=== PATIENT | female | born 1935 | race Caucasian/White ===

== ENCOUNTER → 2016-06-29 | Outpatient (CLI) | payer BC ==
[~2016-06-29] MED LIST: ACET1TAB84 PO; BIOT1CAP3 PO; CALC500C70 PO; CHOL2000 PO; CYAN10005 PO; DOCU-94 PO; ERGO500037 PO; FURO-85 PO; GLUCTAB7 PO; HYDR25TA4 PO; IBAN150T PO; LISI10TA PO; MAGN400T6 PO; MOML PO; MULT-602 PO; OMEG10007 PO; PSYL55.43 PO; TRAMTAB5 PO; TYLOTC500 PO; Tumeric PO; ZNTT/150 PO; [UNRECOGNIZED DRUG - OTHER] TD
[2016-06-29 16:58] LABS: BLOOD UREA NITROGEN 20 mg/dl (7-18); BUN/CREATININE RATIO 36.5 (10-20); CALCIUM 9.5 mg/dl (8.5-10.1); CARBON DIOXIDE 28 mmol/L (21-32); CHLORIDE 97 mmol/L (98-107); CREATININE 0.54 mg/dl (0.60-1.20); GLUCOSE 102 mg/dl (70-99); POTASSIUM 3.9 mmol/L (3.5-5.1); SODIUM 134 mmol/L (136-145)
[2016-06-29 17:08] LABS: THYROID STIMULATING HORMONE 0.942 uIu/ml (0.300-4.500)
== END | disposition home or self-care (01) ==
LOC: C.LAB1850 15:22
PROVIDERS: ATTEND Internal Medicine
DX: M81.0 Age-related osteoporosis without current pathological fracture (principal); N25.81 Secondary hyperparathyroidism of renal origin; E04.2 Nontoxic multinodular goiter

== ENCOUNTER → 2016-07-07 | Outpatient (CLI) | payer BC | END | disposition home or self-care (01) | LOC: C.RDSM 13:20 | PROVIDERS: ATTEND Orthopaedic Surgery Sports Medicine | DX: M25.552 Pain in left hip (principal) ==

== ENCOUNTER → 2016-09-19 | Outpatient (CLI) | payer BC ==
--- NOTE | 2016-09-19 16:29 | DIAGNOSTIC IMAGING REPORT ---
LEFT KNEE 1 OR 2 VIEWS ROUTINE CLINICAL HISTORY: LT KNEE PAIN COMPARISON: 06/01/2016 DISCUSSION: No acute fractures are visualized. Osteoarthritic changes are again evident involving all 3 joint compartments. There is a small dorsal patellar spur. IMPRESSION: 3 compartment osteoarthritis. No acute fractures. Electronically signed by: Ganesh Skelton M.D. 09/19/2016 4:27 PM Dictated Date/Time: 09/19/2016 4:27 PM
== END | disposition home or self-care (01) ==
LOC: C.RAD1850 15:51
PROVIDERS: ATTEND Internal Medicine
DX: M25.562 Pain in left knee (principal)

== ENCOUNTER → 2016-09-19 | Outpatient (CLI) | payer BC ==
[2016-09-19 17:17] LABS: C-REACTIVE PROTEIN < 0.29 mg/dl (0-0.29); RHEUMATOID FACTOR < 10.0 U/mL (0-15)
[2016-09-25 02:35] LABS: ANTI-CENTROMERE AB <1.0 NEG AI (<1.0 NEG); ANTI-SS-A <1.0 NEG AI (<1.0 NEG); ANTI-SS-B <1.0 NEG AI (<1.0 NEG); DNA ds CRITHIDIA NEGATIVE (NEGATIVE); MICROSOMAL AB 2 IU/ML (<9); Sm Antibody <1.0 NEG AI (<1.0 NEG)
== END | disposition home or self-care (01) ==
LOC: C.RAD1850 15:30
PROVIDERS: ATTEND Internal Medicine
DX: M25.461 Effusion, right knee (principal); M25.562 Pain in left knee; W19.XXXA Unspecified fall, initial encounter

== ENCOUNTER → 2016-09-26 | Outpatient (CLI) | payer BC ==
--- NOTE | 2016-09-26 09:18 | DIAGNOSTIC IMAGING REPORT ---
MRI LEFT KNEE NO CONTRAST CLINICAL HISTORY: Left knee pain and swelling COMPARISON STUDY: Conventional radiographic study dated 09/19/2016 FINDINGS: The patient's knee was too large to fit into the knee coil. The long bone core was therefore utilized. Imaging was performed in the axial sagittal and coronal planes. The quadriceps and patellar tendons appear intact. The anterior and posterior cruciate ligaments appear intact. There are no areas of marrow edema to indicate occult fracture. Minor edema involving the medial tibial plateau is likely degenerative basis. The medial and lateral collateral ligaments appear intact. There is medial extrusion of the medial meniscus. There is marked chondrosis the medial joint compartment. There is chondromalacia patella. There is a small joint effusion. There are dorsal patellar spurs. IMPRESSION: 1. No evidence of occult fracture 2. No evidence of cruciate or collateral ligament disruption 3. Moderate osteoarthritic changes with chondromalacia patella, renal joint compartment chondrosis, medial joint compartment patellar spurring, and medial extrusion of the medial meniscus. Electronically signed by: Ganesh Skelton M.D. 09/26/2016 9:16 AM Dictated Date/Time: 09/26/2016 9:12 AM
== END | disposition home or self-care (01) ==
LOC: C.MRI 07:41
PROVIDERS: ATTEND Internal Medicine
DX: M25.461 Effusion, right knee (principal); M25.562 Pain in left knee; M79.662 Pain in left lower leg; M79.89 Other specified soft tissue disorders; R26.81 Unsteadiness on feet; R26.9 Unspecified abnormalities of gait and mobility; W19.XXXA Unspecified fall, initial encounter; M17.12 Unilateral primary osteoarthritis, left knee; M22.42 Chondromalacia patellae, left knee; M24.10 Other articular cartilage disorders, unspecified site; M25.762 Osteophyte, left knee; M23.302 Other meniscus derangements, unspecified lateral meniscus, unspecified knee

== ENCOUNTER → 2016-10-24 | Outpatient (CLI) | payer BC ==
--- NOTE | 2016-10-24 15:27 | DIAGNOSTIC IMAGING REPORT ---
SPLEEN ULTRASOUND CLINICAL HISTORY: Chronic lymphocytic leukemia. COMPARISON STUDY: CT of the abdomen and pelvis August 27, 2015. TECHNIQUE: Sonography of the spleen was performed. FINDINGS: The size of the spleen is normal, measuring 10.6 cm in maximal dimension. Several splenic calcifications are present. There is no perisplenic fluid. IMPRESSION: Normal size spleen. Electronically signed by: Stas Nichols M.D. 10/24/2016 3:26 PM Dictated Date/Time: 10/24/2016 3:25 PM
== END | disposition home or self-care (01) ==
LOC: C.ULTRBC 14:02
PROVIDERS: ATTEND Internal Medicine
DX: C91.10 Chronic lymphocytic leukemia of B-cell type not having achieved remission (principal)

== ENCOUNTER 2016-10-29 03:12 | Emergency (ER) | payer BC ==
[~2016-10-29] VITALS: Ht 154.9 cm; Wt 111.5 kg
[~2016-10-29 03:12] MED LIST changes: -ACET1TAB84 PO; -BIOT1CAP3 PO; -ERGO500037 PO; -MOML PO; -MULT-602 PO; -TRAMTAB5 PO
[2016-10-29 03:19] VITALS: TEMP 36.7; Ht 154.9 cm; Wt 111.5 kg
[2016-10-29 03:26] VITALS: O2SAT 100
[2016-10-29 03:42] LABS: HEMATOCRIT 39.4 % (37-47); MEAN CELL VOLUME 92.9 fL (80-100); MEAN CORPUSCULAR HEMOGLOBIN 31.4 pg (25-34); MEAN CORPUSCULAR HGB CONC 33.8 g/dl (32-36); MEAN PLATELET VOLUME 9.7 fL (7.4-10.4); PLATELET COUNT 217 K/uL (130-400); RED BLOOD COUNT 4.24 M/uL (4.2-5.4); WHITE BLOOD COUNT 20.32 K/uL (4.8-10.8)
[2016-10-29] MEDS ORDERED: BIOT1CAP3 PO (03:42)
[2016-10-29] MEDS ORDERED: MOML PO (03:47)
[2016-10-29] MEDS ORDERED: TRAMTAB5 PO (03:49)
[2016-10-29] MEDS ORDERED: ACET1TAB84 PO (03:51)
[2016-10-29] MEDS ORDERED: ERGO500037 PO (03:53)
[2016-10-29] MEDS ORDERED: OMEG10007 PO (03:56)
[2016-10-29] MEDS ORDERED: MULT-602 PO (03:57)
[2016-10-29 03:59] LABS: ALT/SGPT 22 U/L (12-78); AST/SGOT 10 U/L (15-37); BLOOD UREA NITROGEN 21 mg/dl (7-18); BUN/CREATININE RATIO 35.1 (10-20); CALCIUM 8.9 mg/dl (8.5-10.1); CARBON DIOXIDE 30 mmol/L (21-32); CHLORIDE 96 mmol/L (98-107); CREATININE 0.61 mg/dl (0.60-1.20); GLUCOSE 106 mg/dl (70-99); POTASSIUM 4.1 mmol/L (3.5-5.1); SODIUM 133 mmol/L (136-145)
--- NOTE | 2016-10-29 03:59 | EMERGENCY ROOM VISIT NOTE ---
History Report prepared by Arti: Aj Israel Under the Supervision of: Dr. Brisa Cook D.O. First contact with patient: 03:14 Chief Complaint: HYPERTENSION Stated Complaint: HYPERTENSIVE/SHAKEY History of Present Illness The patient is a 80 year old female who presents to the Emergency Room with complaints of persistent hypertension that started tonight. The patient noticed that before she went to bed she had some abdominal discomfort that describes as bloated, tight, and uncomfortable. The patient tried to lay down to feel better when she started feeling shaky. She took her blood pressure and she was running higher than usual. She usually runs in the 120s, but tonight it was around 140 and she saw 180 during one reading. The patient was able to eat and drink today and felt fine earlier in the evening. She started Zoloft this week for depression-like symptoms. The patient states that she doesn't feel anxious or cold. She denies chest pain, sweating, or shortness of breath. Source of History: patient Onset: tonight Position: other (global) Timing: other (persistent) Associated Symptoms: + abdominal pain, No SOB, No chest pain Note: Other associated symptoms: feeling shaky Denies: feeling anxious or cold, sweating Review of Systems See HPI for pertinent positives & negatives. A total of 10 systems reviewed and were otherwise negative. Past Medical & Surgical Medical Problems: (1) Atrial flutter (2) Cardiomegaly (3) CLL (chronic lymphocytic leukemia) (4) Disc displacement, lumbar (5) Esophageal reflux (6) Hx of breast cancer (7) Hypertension Surgical Problems: (1) S/P cholecystectomy Family History Arthritis Cancer Gallbladder disease Heart disease Hypertension Kidney stones Social History Smoking Status: Never Smoker Alcohol Use: other Marital Status: Housing Status: lives alone Occupation Status: retired Current/Historical Medications Scheduled Acetaminophen (Tylenol Arthritis Ext Rel), 1-2 TABS PO BID Biotin (Biotin), 5,000 MCG PO DAILY Calcium/Vitamin D (Os-Renaldo 500 Plus D), 1 TAB PO BID Cyanocobalamin (Vitamin B-12), 1,000 MCG PO DAILY Docusate Sodium (Colace), 1 CAP PO DAILY Ergocalciferol (Vitamin D 85385 Unit), 50,000 UNIT PO DAILY Fish Oil (Flora-3), 1 CAP PO DAILY Ozitwuepzah-Ulvppilafer-Zmg C- (Glucosamine Chondroitin), 2 TAB PO QAM Hydrochlorothiazide (Hctz), 25 MG PO QAM Lisinopril (Prinivil), 10 MG PO HS Magnesium Oxide (Mag-Ox), 200 MG PO BID Multiple Vitamins W/ Minerals (Womens 50+ Multi Vitamin), 1 TAB PO DAILY Psyllium (Metamucil Powder), 1 PACK PO DAILY/UD Ranitidine (Zantac), 150 MG PO HS [Podiatry Compound], 1 APPLN TD BID [Tumeric], 500 MG PO DAILY Scheduled PRN Furosemide (Lasix), 20 MG PO QAM PRN for swelling Tramadol/Acetaminophen (Ultracet), 1 TAB PO HS PRN for Pain Allergies Coded Allergies: Adhesives (Verified Allergy, Unknown, REDDENED, 10/29/16) CI Pigment Blue 63 (Unverified Allergy, Unknown, over eating, 10/29/16) Calcitriol (Unverified Allergy, Unknown, headache, 10/29/16) Duloxetine (Unverified Allergy, Unknown, over eating, 10/29/16) NO KNOWN DRUG ALLERGIES (Verified Allergy, Unknown, ., 12/09/14) Physical Exam Vital Signs Date Time Temp Pulse Resp B/P Pulse Ox O2 Delivery O2 Flow Rate FiO2 10/29/16 04:08 60 18 135/60 100 Room Air 10/29/16 03:34 68 10/29/16 03:26 100 Room Air 10/29/16 03:19 36.7 67 18 167/68 99 Room Air Physical Exam General: tremulous. HEENT: Head - normocephalic and atraumatic Pupils are equal, round, and reactive to light. Extraocular eye muscles are intact, and sclera are anicteric. Nose - moist nasal mucosa without discharge. Mouth - moist buccal mucosa. Oropharynx is nonerythematous and there is no tonsillar exudate or edema noted. Neck: Supple; no JVD, nuchal rigidity, cervical lymphadenopathy. Heart: Regular rate and rhythm. There is a normal S1 and S2 with no murmurs, clicks, or gallops appreciated. Lungs: Clear to auscultation bilaterally with no wheezes, rales, or rhonchi. Abdomen: Soft, completely nontender, nondistended, with good bowel sounds. There are no palpable pulsatile masses or hepatosplenomegaly. There is no guarding, rigidity, or rebound noted. Extremities: 1+ edema in legs, There are easily palpable peripheral pulses. Skin: warm and dry with good turgor and no rashes. Medical Decision & Procedures ER Provider Diagnostic Interpretation: Chest X-ray interpreted by me: No pulmonary consolidation, no obvious infiltrate, unchanged from chest x-ray from July 2015. Laboratory Results 10/29/16 03:10 Red Blood Count 4.24, Mean Corpuscular Volume 92.9, Mean Corpuscular Hemoglobin 31.4, Mean Corpuscular Hemoglobin Concent 33.8, Mean Platelet Volume 9.7, Neutrophils (%) (Auto) 28.3, Lymphocytes (%) (Auto) 65.8, Monocytes (%) (Auto) 3.8, Eosinophils (%) (Auto) 1.6, Basophils (%) (Auto) 0.2, Neutrophils # (Auto) 5.74, Lymphocytes # (Auto) 13.38, Monocytes # (Auto) 0.78, Eosinophils # (Auto) 0.32, Basophils # (Auto) 0.04 10/29/16 03:10 Test 10/29/16 03:10 White Blood Count 20.32 K/uL (4.8-10.8) Red Blood Count 4.24 M/uL (4.2-5.4) Hemoglobin 13.3 g/dL (12.0-16.0) Hematocrit 39.4 % (37-47) Mean Corpuscular Volume 92.9 fL (80-100) Mean Corpuscular Hemoglobin 31.4 pg (25-34) Mean Corpuscular Hemoglobin Concent 33.8 g/dl (32-36) Platelet Count 217 K/uL (130-400) Mean Platelet Volume 9.7 fL (7.4-10.4) Neutrophils (%) (Auto) 28.3 % Lymphocytes (%) (Auto) 65.8 % Monocytes (%) (Auto) 3.8 % Eosinophils (%) (Auto) 1.6 % Basophils (%) (Auto) 0.2 % Neutrophils # (Auto) 5.74 K/uL (1.4-6.5) Lymphocytes # (Auto) 13.38 K/uL (1.2-3.4) Monocytes # (Auto) 0.78 K/uL (0.11-0.59) Eosinophils # (Auto) 0.32 K/uL (0-0.5) Basophils # (Auto) 0.04 K/uL (0-0.2) RDW Standard Deviation 43.8 fL (36.4-46.3) RDW Coefficient of Variation 12.9 % (11.5-14.5) Immature Granulocyte % (Auto) 0.3 % Immature Granulocyte # (Auto) 0.06 K/uL (0.00-0.02) Smudge Cells PRESENT Anion Gap 7.0 mmol/L (3-11) Est Creatinine Clear Calc Drug Dose 86.5 ml/min Estimated GFR () 99.9 Estimated GFR (Non- 86.2 BUN/Creatinine Ratio 35.1 (10-20) Calcium Level 8.9 mg/dl (8.5-10.1) Total Bilirubin 0.3 mg/dl (0.2-1) Aspartate Amino Transf (AST/SGOT) 10 U/L (15-37) Alanine Aminotransferase (ALT/SGPT) 22 U/L (12-78) Alkaline Phosphatase 88 U/L (45-117) Troponin I < 0.015 ng/ml (0-0.045) Pro-B-Type Natriuretic Peptide 51 pg/ml (0-1800) Total Protein 7.5 gm/dl (6.4-8.2) Albumin 4.1 gm/dl (3.4-5.0) Globulin 3.4 gm/dl (2.5-4.0) Albumin/Globulin Ratio 1.2 (0.9-2) Thyroid Stimulating Hormone (TSH) 2.940 uIu/ml (0.300-4.500) Laboratory results per my review. ECG Indication: other Rate (beats per minute): 64 Rhythm: normal sinus Findings: no acute ischemic change, no ectopy ED Course 0319: Past medical records reviewed. The patient was evaluated in room B12. A complete history and physical exam was performed. Laboratory studies were drawn as above. A twelve-lead EKG was obtained as described above. A chest x- ray was performed and was unremarkable. 0418: At this time, I reevaluated the patient and she was feeling much better. She states that her shaking has resolved. Her family is at bedside and her blood pressure is 135/60. 0422: Upon reevaluation, the patient is resting comfortably. I discussed findings and results with her. The patient verbalized agreement of the treatment plan. She was discharged home. Medical Decision The patient is a 80 year old female who presents to the ED with hypertension. Differential diagnosis includes anxiety, rigors, or hypertensive urgency. Labs interpreted by me: white count 20.32 history of CLL and so this is baseline for the patient, stable H&H, Sodium 133, BUN 21, creatinine 0.6, glucose 106, LFTs and TSH normal, troponin negative. I attest that I have personally reviewed the patient's current medication list. Patient was found to have an elevated blood pressure and was referred to their primary doctor for recheck and further treatment. The patient's tremors have resolved here in the emergency department. Her blood pressure has come down nicely on its own. She is feeling much better. I have encouraged the patient keep a log of her blood pressures over the next 2 or 3 days and follow-up with her PCP. If the symptoms worsen, she should return to the ER. Impression Primary Impression: Occasional tremors Additional Impression: Hypertension Scribe Attestation The scribe's documentation has been prepared under my direction and personally reviewed by me in its entirety. I confirm that the note above accurately reflects all work, treatment, procedures, and medical decision making performed by me. Departure Information Dispostion Home / Self-Care Referrals RV. Kemp MD (PCP) Forms HOME CARE DOCUMENTATION FORM, IMPORTANT VISIT INFORMATION, WORK / SCHOOL INSTRUCTIONS Patient Instructions ED Hypertension Conf Out Of Control, [facility] [employer] Additional Instructions Rest. Limit stress and anxiety. Watch your BP over next 3-5 days and follow up with PCP Return to the ER if symptoms worsen. Problem Qualifiers
[2016-10-29 04:08] VITALS: BP 135/60; PULSE 60; O2SAT 100
[2016-10-29 04:09] LABS: ALB/GLOB RATIO 1.2 (0.9-2); ALKALINE PHOSPHATASE 88 U/L (45-117)
[2016-10-29 04:13] LABS: BASO % 0.2 %; BASO ABS # 0.04 K/uL (0-0.2); COMPLETE YES; EOS % 1.6 %; IG% 0.3 %; LYMPH % 65.8 %; LYMPH ABS # 13.38 K/uL (1.2-3.4); MONO % 3.8 %; NEUT % 28.3 %; SMUDGE CELLS PRESENT
--- NOTE | 2016-10-29 10:59 | DIAGNOSTIC IMAGING REPORT ---
CHEST ONE VIEW PORTABLE CLINICAL HISTORY: Hypertension. Weakness. COMPARISON STUDY: Chest radiograph July 10, 2015. FINDINGS: Lung volumes are normal. There is no pneumothorax or pleural effusion. There is no evidence of pulmonary edema. Cardiomediastinal silhouette is stable. IMPRESSION: No acute cardiopulmonary findings. Electronically signed by: Stas Nichols M.D. 10/29/2016 10:57 AM Dictated Date/Time: 10/29/2016 10:54 AM
== END 2016-10-29 04:31 | disposition home or self-care (01) ==
LOC: EDBD 03:12 → C.EDB 03:13
DX: I10 Essential (primary) hypertension (principal); R25.1 Tremor, unspecified; I48.92 Unspecified atrial flutter; Z85.6 Personal history of leukemia; K21.9 Gastro-esophageal reflux disease without esophagitis; Z85.3 Personal history of malignant neoplasm of breast; Z90.49 Acquired absence of other specified parts of digestive tract; Z80.9 Family history of malignant neoplasm, unspecified; Z82.49 Family history of ischemic heart disease and other diseases of the circulatory system; Z84.1 Family history of disorders of kidney and ureter; Z82.61 Family history of arthritis; Z79.899 Other long term (current) drug therapy

== ENCOUNTER → 2016-11-03 | Outpatient (CLI) | payer BC ==
[~2016-11-03] MED LIST changes: +ACET1TAB84 PO; +BIOT1CAP3 PO; -CHOL2000 PO; +ERGO500037 PO; -IBAN150T PO; +MULT-602 PO; +TRAMTAB5 PO; -TYLOTC500 PO
== END | disposition home or self-care (01) ==
LOC: C.LABSPEC 16:46
PROVIDERS: ATTEND Internal Medicine
DX: R10.13 Epigastric pain (principal)

== ENCOUNTER → 2016-11-30 | Outpatient (CLI) | payer BC ==
[2016-11-30 13:46] LABS: THYROID STIMULATING HORMONE 0.668 uIu/ml (0.300-4.500)
[2016-12-02 12:38] LABS: MICROSOMAL AB 2 IU/ML (<9)
== END | disposition home or self-care (01) ==
LOC: C.LAB1850 11:55
PROVIDERS: ATTEND Internal Medicine
DX: R53.83 Other fatigue (principal)

== ENCOUNTER → 2017-01-22 | Outpatient (CLI) | payer BC ==
--- NOTE | 2017-01-31 12:12 | CODING QUERY MEDICAL NECESSITY ---
SUPPORTING DIAGNOSIS NEEDED A supporting diagnosis is required for the test/procedure performed on this patient in order for us to be reimbursed by the patient's insurance. Please provide a supporting diagnosis for the following test/procedure listed below next to the test name along with your signature. *If there is no additional diagnosis for this patient that would support the following test/procedure please document that below next to the test/procedure. Test(s)/Procedure(s) that require a supporting diagnosis: * VITAMIN B12 DIAGNOSIS: Provider Signature: Date: Thank you Cristine Collins [employer] Once completed, please kindly fax back to [phone] For questions please call [phone]
== END | disposition home or self-care (01) ==
LOC: C.LAB1850 15:48
PROVIDERS: ATTEND Physician Assistant
DX: G62.9 Polyneuropathy, unspecified (principal); R26.9 Unspecified abnormalities of gait and mobility

== ENCOUNTER → 2017-01-26 | Outpatient (CLI) | payer BC ==
--- NOTE | 2017-01-26 12:35 | DIAGNOSTIC IMAGING REPORT ---
MRI OF THE CERVICAL SPINE WITHOUT CONTRAST CLINICAL HISTORY: Neck pain with radiculopathy. COMPARISON: Cervical spine MRI October 15, 2014 and cervical spine radiographs August 24, 2015. TECHNIQUE: Utilizing a 1.5 Evon magnet and dedicated coil, multiplanar, multiecho imaging of the cervical spine was performed without IV contrast. FINDINGS: Alignment of the cervical spine is anatomic. Vertebral body heights are maintained. There is no intracanalicular mass or fluid collection. Cervical cord signal and caliber are normal. Paravertebral soft tissues are unremarkable. A few small thyroid nodules are incidentally noted. C2-C3: The central canal and neural foramen are patent. C3-C4: There is mild disc space narrowing. Central canal is patent. There is mild narrowing of the right neural foramen. C4-C5: Disc bulge is noted which results in mild narrowing of the central canal. This is similar to MRI of October 15, 2016. There is moderate right neural foraminal narrowing. C5-C6: Disc space narrowing with disc bulge is noted. There is mild narrowing of the central canal which is similar to prior exam. There is mild bilateral neural foraminal stenosis. C6-C7: Mild disc bulge is noted. Minimal narrowing of the central canal is noted. There is mild narrowing of the left and moderate narrowing of the right neural foramen. C7-T1: Central canal and neural foramen are patent. IMPRESSION: 1. Mild multilevel degenerative disc disease with disc bulges at the C4-5, C5-C6 and C6-C7 levels which result in mild narrowing of the central canal which is similar to prior MRI. 2. Mild to moderate multilevel neural foraminal stenosis, as described above. 3. Normal cervical cord signal and caliber. Electronically signed by: Stas Nichols M.D. 01/26/2017 12:34 PM Dictated Date/Time: 01/26/2017 12:15 PM
--- NOTE | 2017-01-26 13:08 | DIAGNOSTIC IMAGING REPORT ---
LUMBAR SPINE W/O CONTRAST CLINICAL HISTORY: 81 years-old Female presenting with back pain, numbness, stenosis, neuropathy, difficulty walking. TECHNIQUE: Multisequence, multiplanar MR imaging of the lumbar spine was performed without the use of intravenous contrast. IV contrast: None. COMPARISON: Correlation made to CT of the abdomen and pelvis from 2016. FINDINGS: Localizer images: Spleen top normal in size. Normal lumbar lordosis. Vertebral bodies maintain normal height and alignment. Bone marrow signal intensity changes along the endplates of T12-L1 and L2-L3 consistent with mild bony edema. No associated fluid signal intensity within the intervertebral disc spaces at these levels. Overall diffuse disc desiccation is noted with intervertebral disc height loss most severe in the upper lumbar spine. Multilevel degenerative changes noted at every level further detailed below: L1-2: Disc bulge results in mild effacement of the ventral thecal sac. No significant neuroforaminal narrowing. L2-3: Disc bulge, facet arthropathy, and ligamentum flavum thickening result in circumferential effacement of the thecal sac, although CSF signal intensity surrounding the nerve roots is maintained. Mild right and moderate left neural foraminal narrowing. L3-4: Disc bulge, facet arthropathy, and mentum flavum thickening again result in circumferential effacement of the thecal sac with maintenance of CSF signal surrounding the cauda equina. Mild right and moderate left neural foraminal narrowing. L4-5: Disc bulge with a suspected central annular tear noted in addition to facet arthropathy and ligamentum flavum thickening. A similar degree of circumferential thecal sac effacement noted. Mild bilateral neural foraminal narrowing results. L5-S1: Disc bulge and facet arthropathy results in moderate bilateral neural foraminal narrowing. No significant spinal canal stenosis. Spinal cord ends in good position at L1. Cauda equina normal in morphology. No paraspinal edema or fluid collection. No epidural fluid collection. IMPRESSION: Multilevel degenerative changes as detailed above. Neural foraminal narrowing most severe at L2-3 and L3-4. No evidence of spinal cord/cauda equina impingement. Electronically signed by: Km Almeida M.D. 01/26/2017 1:07 PM Dictated Date/Time: 01/26/2017 1:01 PM
== END | disposition home or self-care (01) ==
LOC: C.MRI 10:32
PROVIDERS: ATTEND Physician Assistant
DX: M54.12 Radiculopathy, cervical region (principal); M48.06 Spinal stenosis, lumbar region

== ENCOUNTER → 2017-02-02 | Outpatient (CLI) | payer BC ==
[~2017-02-02] VITALS: Ht 154.9 cm; Wt 104.4 kg
[2017-02-02 13:28] VITALS: BP 127/76; PULSE 76; Ht 154.9 cm; Wt 104.4 kg
== END | disposition home or self-care (01) ==
LOC: C.NEUR 13:09
PROVIDERS: ATTEND Internal Medicine Pulmonary Disease
DX: G47.33 Obstructive sleep apnea (adult) (pediatric) (principal)

== ENCOUNTER → 2017-08-06 | Outpatient (CLI) | payer BC ==
[~2017-08-06] MED LIST changes: +RANI150T85 PO; -ZNTT/150 PO
== END | disposition home or self-care (01) ==
LOC: C.MAMM 12:54
PROVIDERS: ATTEND Internal Medicine
DX: M81.0 Age-related osteoporosis without current pathological fracture (principal)

== ENCOUNTER → 2017-08-07 | Outpatient (CLI) | payer BC ==
--- NOTE | 2017-08-09 08:01 | MAMMOGRAPHY REPORT ---
BILATERAL DIGITAL SCREENING MAMMOGRAM TOMOSYNTHESIS WITH CAD: 08/07/2017 CLINICAL HISTORY: Routine screening. Patient has no complaints. TECHNIQUE: Breast tomosynthesis in addition to standard 2D mammography was performed. Current study was also evaluated with a Computer Aided Detection (CAD) system. COMPARISON: Comparison is made to exams dated: 05/15/2016 mammogram, 05/11/2015 mammogram, 05/08/2014 mammogram, 05/07/2013 mammogram - [facility], 02/19/2012 mammogram, and 02/16/2011 kezia mogram. BREAST COMPOSITION: There are scattered areas of fibroglandular density in both breasts. FINDINGS: There is stable asymmetry in the middle one third of the right breast, slightly lateral to the posterior nipple line on the CC view, which appears very similar to the prior 2015, 2014, 2013, 012 and 2010 mammograms, therefore likely benign. There are scattered benign-appearing microcalcific ations in the breasts. No suspicious mass, architectural distortion or cluster of microcalcification s is seen. IMPRESSION: ACR BI-RADS CATEGORY 1: NEGATIVE There is no mammographic evidence of malignancy. A 1 year screening mammogram is recommended. The pa tient will receive written notification of the results. Approximately 10% of breast cancers are not detected with mammography. A negative mammographic report should not delay biopsy if a clinically suggestive mass is present. Marylou Green M.D. ay/:08/07/2017 15:20:42 Chief Administrative Officer: Emilee CRUMP(Melisa)(Aislinn)(MIGUEL ANGEL), [facility] letter sent: Normal 1/2 BI-RADS Code: ACR BI-RADS Category 1: Negative
== END | disposition home or self-care (01) ==
LOC: C.MAMM 11:35
PROVIDERS: ATTEND Obstetrics & Gynecology
DX: Z12.31 Encounter for screening mammogram for malignant neoplasm of breast (principal)

== ENCOUNTER → 2017-09-27 | Outpatient (CLI) | payer BC | END | disposition home or self-care (01) | LOC: C.LABBC 12:04 | PROVIDERS: ATTEND Obstetrics & Gynecology | DX: R32 Unspecified urinary incontinence (principal) ==

== ENCOUNTER → 2017-12-28 | Outpatient (CLI) | payer BC ==
[~2017-12-28] MED LIST changes: -CALC500C70 PO; +CHOL20007 PO; -ERGO500037 PO; -FURO-85 PO; +GABA1SOL3 PO; -LISI10TA PO; -MAGN400T6 PO; +MALTREXONE PO; +PROB1TAB16 PO; -PSYL55.43 PO; -TRAMTAB5 PO; -[UNRECOGNIZED DRUG - OTHER] TD
== END | disposition home or self-care (01) ==
LOC: C.PATHSPEC 14:37
PROVIDERS: ATTEND Urology
DX: R31.29 Other microscopic hematuria (principal); N20.0 Calculus of kidney

== ENCOUNTER → 2018-01-07 | Outpatient (CLI) | payer BC ==
[2018-01-07 16:12] LABS: ALBUMIN 3.7 gm/dl (3.4-5.0); ALKALINE PHOSPHATASE 74 U/L (45-117); ALT/SGPT 22 U/L (12-78); AST/SGOT 12 U/L (15-37); BLOOD UREA NITROGEN 16 mg/dl (7-18); CARBON DIOXIDE 29 mmol/L (21-32); CREATININE 0.51 mg/dl (0.60-1.20); GLUCOSE 101 mg/dl (70-99); POTASSIUM 3.9 mmol/L (3.5-5.1); SODIUM 133 mmol/L (136-145); TOTAL PROTEIN 6.6 gm/dl (6.4-8.2)
== END | disposition home or self-care (01) ==
LOC: C.LAB1850 14:17
PROVIDERS: ATTEND Urology
DX: R31.29 Other microscopic hematuria (principal); N20.0 Calculus of kidney

== ENCOUNTER → 2018-01-10 | Day surgery (SDC) | payer BC ==
[2017-12-21 13:43] VITALS: Ht 157.5 cm; Wt 103.2 kg
[~2018-01-10] VITALS: Ht 157.5 cm; Wt 103.2 kg
[~2018-01-10] MED LIST changes: +LIDOCAINE HCL 2% 2 ML VIAL (20MG/ML) ONE; +MIDAZOLAM HCL 1 MG/ML 2ML VIAL ONE; +PROPOFOL IV EMULSION 10 MG/ML 20 ML VIAL ONE
--- NOTE | 2018-01-10 15:11 | Endo History and Physical ---
History & Physical Date of Service: Jan 10, 2018. Chief Complaint: ABDOMINAL PAIN, EPIGASTRIC PAIN, BLOATING Referring Physician: , History of Present Illness For colonoscopy Past Medical History Osteoporosis, Arthritis, Anxiety, Reflux, Sleep Apnea, Hypertension, Depression Past Surgical History Hx Cardiac Surgery: No Hx Internal Defibrillator: No Hx Pacemaker: No Hx Abdominal Surgery: Yes (cholecystectomy, ovarian cystectomy, D&C) Hx of Implantable Prosthesis: No Hx Post-Op Nausea and Vomiting: No Hx Cancer Surgery: No Hx Thoracic Surgery: No Hx Orthopedic: No Hx Urinary Tract Surgery: No Family History None Social History Smoking Status: Never Smoker Hx Substance Use: No Hx Alcohol Use: No Allergies Coded Allergies: Adhesives (Verified Allergy, Mild, RASH, 01/10/18) CI Pigment Blue 63 (Verified Allergy, Unknown, over eating, 01/10/18) Calcitriol (Verified Allergy, Unknown, headache, 01/10/18) Duloxetine (Verified Allergy, Unknown, over eating, 01/10/18) Current Medications Reported Home Medications Medications Dose Route/Sig Max Daily Dose Days Date Category Probiotic (Probiotic Product) 1 Tab Tab 1 Tab PO DAILY 12/21/17 Reported Vitamin D3 (Cholecalciferol) 2,000 Unit Tab 1 Tab PO DAILY 12/21/17 Reported Womens 50+ Multi Vitamin (Multiple Vitamins W/ Minerals) 1 Tab Tab 1 Tab PO DAILY 10/29/16 Reported Russell-3 (Fish Oil) 1 Ea Cap 2 Cap PO DAILY 10/29/16 Reported Tylenol Arthritis Ext Rel (Acetaminophen) 650 Mg Cplt 1-2 Tabs PO BID 10/29/16 Reported Biotin 5,000 Mcg Cap 5,000 Mcg PO DAILY 10/29/16 Reported Colace (Docusate Sodium) 100 Mg Cap 1 Cap PO DAILY 01/21/16 Reported [Tumeric] 500 Mg PO DAILY 09/01/15 Reported Vitamin B-12 (Cyanocobalamin) 1,000 Mcg Tab 1,000 Mcg PO Q2D 07/10/15 Reported Glucosamine Chondroitin (Jubxwogsfaz-Pcrzehtthiz-Wkx C-) 1 Tab Tab 2 Tab PO QAM 12/07/14 Reported Zantac (Ranitidine HCl) 150 Mg Tab 150 Mg PO HS 12/07/14 Reported Hctz (Hydrochlorothiazide) 25 Mg Tab 25 Mg PO QAM 05/14/14 Reported Vital Signs Weight (Kilograms): 103.18 Height (Feet): 5 Height (Inches): 2 Date Time Temp Pulse Resp B/P (MAP) Pulse Ox O2 Delivery O2 Flow Rate FiO2 01/10/18 14:24 37 63 20 169/71 (103) 97 Room Air Physical Exam General Appearance: + obese Respiratory/Chest: Respiratory effort: no dyspnea Cardiovascular: Heart Auscultation: RRR Assessment and Plan abd pain for colonoscopy
--- NOTE | 2018-01-10 15:54 | Discharge Instructions ---
Endoscopy Patient Instructions Date / Procedure(s) Performed Jan 10, 2018. Colonoscopy Allergy Information Coded Allergies: Adhesives (Verified Allergy, Mild, RASH, 01/10/18) CI Pigment Blue 63 (Verified Allergy, Unknown, over eating, 01/10/18) Calcitriol (Verified Allergy, Unknown, headache, 01/10/18) Duloxetine (Verified Allergy, Unknown, over eating, 01/10/18) Discharge Date / Findings Jan 10, 2018. redundant colon Medication Instructions Stopped Medication(s): HELD THE HCTZ FOR THE PROCEDURE Restart Stopped Medication(s): resume meds Reported Home Medications Medications Dose Route/Sig Max Daily Dose Days Date Category Probiotic (Probiotic Product) 1 Tab Tab 1 Tab PO DAILY 12/21/17 Reported Vitamin D3 (Cholecalciferol) 2,000 Unit Tab 1 Tab PO DAILY 12/21/17 Reported Womens 50+ Multi Vitamin (Multiple Vitamins W/ Minerals) 1 Tab Tab 1 Tab PO DAILY 10/29/16 Reported [place]ney-3 (Fish Oil) 1 Ea Cap 2 Cap PO DAILY 10/29/16 Reported Tylenol Arthritis Ext Rel (Acetaminophen) 650 Mg Cplt 1-2 Tabs PO BID 10/29/16 Reported Biotin 5,000 Mcg Cap 5,000 Mcg PO DAILY 10/29/16 Reported Colace (Docusate Sodium) 100 Mg Cap 1 Cap PO DAILY 01/21/16 Reported [Tumeric] 500 Mg PO DAILY 09/01/15 Reported Vitamin B-12 (Cyanocobalamin) 1,000 Mcg Tab 1,000 Mcg PO Q2D 07/10/15 Reported Glucosamine Chondroitin (Vveoljpfhqr-Zmaeyejvvhs-Lzs C-) 1 Tab Tab 2 Tab PO QAM 12/07/14 Reported Zantac (Ranitidine HCl) 150 Mg Tab 150 Mg PO HS 12/07/14 Reported Hctz (Hydrochlorothiazide) 25 Mg Tab 25 Mg PO QAM 05/14/14 Reported Provider Instructions Activity Restrictions - No exercising or heavy lifting for 24 hours. - Do not drink alcohol the day of the procedure. - Do not drive a car or operate machinery until the day after the procedure. - Do not make any important decisions or sign important papers in 24 hours after the procedure. Following Day: - Return to full activity which may include returning to work/school. Diet Start your diet with liquids and light foods (jello, soup, juice, toast). Then eat your usual diet if not nauseated. Treatment For Common After Affects For mild abdominal pain, bloating, or excessive gas: - Rest - Eat lightly - Lie on right side Follow-Up Information Follow-up with , as scheduled Anesthesia Information What You Should Know You have had a procedure that required some medicine to reduce anxiety and discomfort. This treatment is called moderate sedation. After receiving the treatment, you may be sleepy, but you will be able to breathe on your own. The effects of the treatment may last for several hours. Follow these instructions along with Activity/Diet recommendations noted above: * Do NOT do anything where dizziness or clumsiness would be dangerous. * Rest quietly at home today, then you can be up and about tomorrow. * Have a responsible person stay with you the rest of today. * You may have had an I.V. today. If so, you may take the dressing off later today. Recommendations Call your doctor if: * Trouble breathing * Continuous vomiting for more than 24 hours * Temperature above 101 degrees * Severe abdominal pain or bloating * Pain not relieved by pain medicine ordered * There is increased drainage or redness from any incision * A large amount of rectal bleeding greater than 2-3 tablespoons. (If you had a polyp/s removed or have hemorrhoids, a small amount of blood - from the rectum is to be expected.) * You have any unanswered questions or concerns. IN THE EVENT OF A SERIOUS EMERGENCY, GO TO THE NEAREST EMERGENCY ROOM Your discharge instructions were prepared by provider Silver Hussein. Patient Instructions Signature Page Trina Fabian Patient (or Guardian) Signature/Date: I have read and understand the instructions given to me by my caregivers. Caregiver/RN/Doctor Signature/Date: The above-named patient and/or guardian has received patient instructions on this date. + Original Patient Signature Page (only) stays with chart. Please make copy for patient.
--- NOTE | 2018-01-10 15:59 | GI REPORT ---
Patient Name: Trina Fabian Procedure Date: 01/10/2018 3:05 PM Date of : 1935 Admit Type: Outpatient Age: 82 Gender: Female Attending MD: Silver Hussein MD Procedure: Colonoscopy Providers: Silver Hussein MD Referring MD: Henrietta Kemp Indications: Generalized abdominal pain, Constipation Medicines: Midazolam 2 mg IV, Propofol total dose 250 mg IV, Lidocaine 40 mg IV Complications: No immediate complications. Estimated Blood Loss: Estimated blood loss: none. Procedure: Pre-Anesthesia Assessment: - Prior to the procedure, a History and Physical was performed, and patient medications, allergies and sensitivities were reviewed. The patient's tolerance of previous anesthesia was reviewed. - The risks and benefits of the procedure and the sedation options and risks were discussed with the patient. All questions were answered and informed consent was obtained. After I obtained informed consent, the scope was passed under direct vision. Throughout the procedure, the patient's blood pressure, pulse, and oxygen saturations were monitored continuously. The scope was introduced through the anus and advanced to the cecum, identified by appendiceal orifice and ileocecal valve. The colonoscopy was somewhat difficult due to significant looping. Successful completion of the procedure was aided by applying abdominal pressure. The patient tolerated the procedure well. The quality of the bowel preparation was good. Findings: The entire examined colon appeared normal. Impression: - The entire examined colon is normal. - No specimens collected. Recommendation: - Discharge patient to home (ambulatory). - Miralax 1 capful (17 grams) in 8 ounces of water PO daily indefinitely. - Return to primary care physician PRN. Silver Hussein M.D. Silver Hussein MD 01/10/2018 3:58:57 PM This report has been signed electronically. Note Initiated On: 01/10/2018 3:05 PM Number of Addenda: 0 I attest to the content of the Intraoperative Record and orders documented therein, exceptions below {[id number]}
[2018-01-10 16:31] VITALS: BP 159/68; PULSE 64; O2SAT 100
--- NOTE | 2018-01-10 16:55 | Anesthesiology Progress Note ---
Anesthesia Post Op Note Date & Time Jan 10, 2018 at 16:55 Vital Signs Pain Intensity: 5 Vital Signs Past 12 Hours Date Time Temp Pulse Resp B/P (MAP) Pulse Ox O2 Delivery O2 Flow Rate FiO2 01/10/18 16:31 64 20 159/68 (98) 100 Room Air 01/10/18 16:16 61 20 111/42 (65) 97 Room Air 01/10/18 15:58 64 20 103/50 (67) 99 Room Air 01/10/18 14:24 37 63 20 169/71 (103) 97 Room Air Notes Mental Status: alert / awake / arousable, participated in evaluation Pt Amnestic to Procedure: Yes Nausea / Vomiting: adequately controlled Pain: adequately controlled Airway Patency, RR, SpO2: stable & adequate BP & HR: stable & adequate Hydration State: stable & adequate Anesthetic Complications: no major complications apparent
== END | disposition home or self-care (01) ==
LOC: C.GI 13:35
PROVIDERS: ATTEND Internal Medicine Gastroenterology
DX: R10.84 Generalized abdominal pain (principal); K59.00 Constipation, unspecified; G47.33 Obstructive sleep apnea (adult) (pediatric); K21.9 Gastro-esophageal reflux disease without esophagitis; M79.7 Fibromyalgia; M81.0 Age-related osteoporosis without current pathological fracture; M19.90 Unspecified osteoarthritis, unspecified site; F32.9 Major depressive disorder, single episode, unspecified; Z90.49 Acquired absence of other specified parts of digestive tract

== ENCOUNTER → 2018-01-17 | Outpatient (CLI) | payer BC ==
[~2018-01-17] MED LIST changes: -GABA1SOL3 PO; -LIDOCAINE HCL 2% 2 ML VIAL (20MG/ML) ONE; -MALTREXONE PO; -MIDAZOLAM HCL 1 MG/ML 2ML VIAL ONE; +OPTIRAY 320 IV PRN; -PROPOFOL IV EMULSION 10 MG/ML 20 ML VIAL ONE
--- NOTE | 2018-01-17 11:15 | DIAGNOSTIC IMAGING REPORT ---
ABD/PELVIS COMBO CLINICAL HISTORY: 82 years-old Female presenting with R31.29 Hematuria, microscopic. TECHNIQUE: Multidetector CT of the abdomen and pelvis was performed before and after the administration of intravenous contrast. IV contrast: 117 mL of Optiray 320. A dose lowering technique was used consistent with the principles of ALARA (as low as reasonably achievable). COMPARISON: 08/27/2015. CT DOSE (mGy.cm): The estimated cumulative dose is 2612.97 mGy.cm. 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 Lung bases: Minimal basilar opacities, likely atelectasis. Multichamber enlargement of the heart. Coronary artery calcification. Calcified mediastinal lymph nodes noted likely indicating prior granulomatous infection. No pericardial or pleural effusion. Liver: Normal morphology. No liver lesion. Patent hepatic vasculature. Biliary: No intrahepatic or extrahepatic biliary ductal dilatation. Gallbladder surgically absent. Pancreas: Normal. Spleen: Punctate calcifications likely indicate prior granulomatous infection. Adrenal glands: Nonspecific nodular thickening of the left adrenal gland. Right adrenal gland normal. Kidneys and ureters: 2.6 cm lesion at the upper pole of the right kidney demonstrates a precontrast density of 34 Hounsfield units but no enhancement on postcontrast imaging with postcontrast density of 37 Hounsfield units. This is compatible with a hemorrhagic or proteinaceous cyst. Nonobstructing right renal calculi, the larger measuring 3 mm and an adjacent punctate calculus. No hydronephrosis. Few simple cysts suggested bilaterally in the kidneys. No filling defect in the urinary collecting systems. Normal caliber ureters. Bladder: Anterior wall thickening. However, the bladder is incompletely distended. Pelvic organs: Uterus and ovaries normal. Bowel: Mild stool burden throughout the colon. No bowel obstruction. Mild circumferential wall thickening of the distal esophagus suggested. Peritoneal cavity: No free fluid or intraperitoneal gas. Lymph nodes: No enlarged lymph nodes in the abdomen or pelvis. Vasculature: Atherosclerosis of the normal caliber abdominal aorta. IVC patent. Abdominal wall: Ventral hernia in the periumbilical region, which contains fat and unobstructed small bowel. No significant fat infiltration. The hernia has a wide neck. Musculoskeletal: Degenerative changes of the spine. Degenerative changes of the pubic symphysis. Fluid suggested in the pubic symphysis joint space. Degenerative changes of the sacroiliac joints. IMPRESSION: 1. Wall thickening of the anterior wall of the bladder may be due to underdistention though underlying bladder neoplasm is difficult to exclude. Urologic consultation recommended. 2. Nonobstructing right renal calculi. No hydronephrosis. 3. 2.6 cm hemorrhagic or proteinaceous right renal cyst. 4. No solid renal neoplasm. 5. Ventral hernia. 6. Mild circumferential wall thickening of the distal esophagus could suggest esophagitis. 7. Cardiomegaly. Electronically signed by: Km Almeida M.D. 01/17/2018 11:14 AM Dictated Date/Time: 01/17/2018 11:01 AM
== END | disposition home or self-care (01) ==
LOC: C.CTS 10:20
PROVIDERS: ATTEND Urology
DX: N20.0 Calculus of kidney (principal); I51.7 Cardiomegaly; K43.9 Ventral hernia without obstruction or gangrene; N28.1 Cyst of kidney, acquired; R31.29 Other microscopic hematuria

== ENCOUNTER 2018-01-24 13:42 | Emergency (ER) | payer BC ==
[~2018-01-24] VITALS: Ht 157.5 cm; Wt 105.0 kg
[~2018-01-24 13:42] MED LIST changes: -OPTIRAY 320 IV PRN
[2018-01-24 13:45] VITALS: TEMP 36.8; Ht 157.5 cm; Wt 105.0 kg
[2018-01-24 14:51] LABS: HEMATOCRIT 37.8 % (37-47); MEAN CELL VOLUME 90.2 fL (80-100); MEAN CORPUSCULAR HGB CONC 34.4 g/dl (32-36); MEAN PLATELET VOLUME 9.7 fL (7.4-10.4); PLATELET COUNT 181 K/uL (130-400); RED CELL DISTRIBUTION WIDTH CV 13.2 % (11.5-14.5); RED CELL DISTRIBUTION WIDTH SD 42.9 fL (36.4-46.3); WHITE BLOOD COUNT 17.79 K/uL (4.8-10.8)
--- NOTE | 2018-01-24 15:04 | DIAGNOSTIC IMAGING REPORT ---
PA CHEST WITH ABDOMINAL SERIES CLINICAL HISTORY: Generalized abdominal pain. FINDINGS: A PA chest radiograph is compared to study dated 10/29/2016 and correlated with chest CT dated 07/06/2014. The heart is enlarged and there is atherosclerotic calcification of the thoracic aorta. The pulmonary vasculature is noncongested. Chronic interstitial thickening is similar to previous. No airspace consolidation or pleural effusion is identified. No pneumothorax is seen. The skeletal structures are osteopenic. The bony thorax is grossly intact. Degenerative change is noted in the thoracic spine. Supine and erect abdominal radiographs are correlated with abdominal CT dated 01/17/2018. Cholecystectomy clips are noted in the right upper quadrant. There is a nonobstructed abdominal bowel gas pattern. Moderate to severe colonic fecal retention is observed. No evidence of intraperitoneal free air is seen. There are calcified splenic granulomas. Phleboliths are observed in the pelvis. The lumbosacral spine and bony pelvis appear intact. There is mild lumbosacral spondylosis and scoliosis. IMPRESSION: 1. Cardiomegaly with no active disease in the chest. 2. Nonobstructed abdominal bowel gas pattern noting moderate to severe constipation. Electronically signed by: Sathya Bueno M.D. 01/24/2018 3:02 PM Dictated Date/Time: 01/24/2018 3:00 PM
[2018-01-24 15:11] LABS: ALBUMIN 3.9 gm/dl (3.4-5.0); ALKALINE PHOSPHATASE 84 U/L (45-117); ALT/SGPT 30 U/L (12-78); AST/SGOT 15 U/L (15-37); BLOOD UREA NITROGEN 18 mg/dl (7-18); CALCIUM 9.2 mg/dl (8.5-10.1); CARBON DIOXIDE 27 mmol/L (21-32); CREATININE 0.46 mg/dl (0.60-1.20); GLUCOSE 95 mg/dl (70-99); LIPASE 73 U/L (73-393); POTASSIUM 3.9 mmol/L (3.5-5.1); SODIUM 131 mmol/L (136-145); TOTAL PROTEIN 7.1 gm/dl (6.4-8.2)
[2018-01-24] MEDS ORDERED: OPTIRAY 320 IV PRN (15:15)
[2018-01-24] MEDS ORDERED: SODIUM CHLORIDE 0.9% 1000ML 1,000 ML IV STA (15:19)
[2018-01-24] MEDS ORDERED: SODIUM CHLORIDE 0.9% 500ML 500 ML IV STA (15:19)
[2018-01-24 15:58] LABS: BASO % 0.2 %; BASO ABS # 0.04 K/uL (0-0.2); EOS % 1.1 %; EOS ABS # 0.19 K/uL (0-0.5); IG# 0.05 K/uL (0.00-0.02); LYMPH % 59.2 %; LYMPH ABS # 10.53 K/uL (1.2-3.4); MONO % 4.2 %; MONO ABS # 0.74 K/uL (0.11-0.59); NEUT ABS # 6.24 K/uL (1.4-6.5)
--- NOTE | 2018-01-24 17:10 | DIAGNOSTIC IMAGING REPORT ---
ABD/PELVIS IV CONTRAST ONLY CLINICAL HISTORY: 82 years-old Female presenting with rlq pain r/o appy. TECHNIQUE: Multidetector CT of the abdomen and pelvis was performed after the administration of intravenous contrast. IV contrast: 117 mL of Optiray 320. A dose lowering technique was used consistent with the principles of ALARA (as low as reasonably achievable). COMPARISON: 01/17/2018. CT DOSE (mGy.cm): The estimated cumulative dose is 1227.56 mGy.cm. 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 Lung bases: Minimal basilar opacities, likely atelectasis. Calcified mediastinal lymph nodes noted. Mild multichamber enlargement of the heart. No pericardial or pleural effusion. Liver: Normal morphology. Subcentimeter well-defined hypodensities, most prominently in the left hepatic lobe likely hepatic cysts or hamartomas. Patent hepatic vasculature. Biliary: Mild biliary ductal prominence likely a reservoir effect in the post cholecystectomy state. Gallbladder surgically absent. Pancreas: Normal. Spleen: Scattered parenchymal calcifications likely suggest a history of chronic granulomatous infection. Adrenal glands: Normal. Kidneys and ureters: Several well-defined hypodensities in the kidneys, likely cysts. Nonobstructing 3 mm calculus in the interpolar region of the right kidney. Additional adjacent punctate nonobstructing right renal calculus. No left renal calculi. No hydronephrosis. Mild distention of the right ureter without evidence of an obstructing calculus or mass. This appearance is similar to the prior exam. Left ureter nondistended. Bladder: Circumferential bladder wall thickening. Pelvic organs: Uterus and ovaries normal. Bowel: Mild wall thickening of the rectum suggested in the mid to lower portion. No surrounding infiltration of the mesorectal fat. Appendix not visualized. Mild stool burden throughout the colon. Trace hilar hernia may be present. Peritoneal cavity: No free fluid or intraperitoneal gas. Lymph nodes: No enlarged lymph nodes in the abdomen or pelvis. Vasculature: Atherosclerosis of the normal caliber abdominal aorta. IVC patent. Abdominal wall: Fat-containing ventral hernia. This is at the inferior margin of the diastatic abdominal rectus. Musculoskeletal: Degenerative changes of the spine. Degenerative changes of the pubic symphysis and sacroiliac joints. IMPRESSION: 1. The appendix is not visualized though there is no inflammatory change in the right lower quadrant. 2. Mild wall thickening of the mid to lower portion of the rectum is suggested. Could be due to underdistention or proctitis. Correlate with rectal exam. 3. Circumferential bladder wall thickening suggested. Correlate with urinalysis to exclude cystitis. 4. Fat-containing ventral hernia at the inferior margin of the diastatic abdominal rectus. The appearance is unchanged from prior. No evidence to suggest strangulation of the hernia sac. 5. Nonobstructing right renal calculi. 6. Evidence of prior granulomatous infection. 7. Postsurgical changes of cholecystectomy. Electronically signed by: Km Almeida M.D. 01/24/2018 5:09 PM Dictated Date/Time: 01/24/2018 4:55 PM
[2018-01-24 18:41] VITALS: BP 161/80; PULSE 59; O2SAT 99
--- NOTE | 2018-01-24 19:14 | EMERGENCY ROOM VISIT NOTE ---
History Report prepared by Arti: Brianda Rowley Under the Supervision of: Dr. Wale Alvarenga M.D. First contact with patient: 14:23 Chief Complaint: BACK PAIN Stated Complaint: PAIN IN THE RIGHT BACK JUST BELOW WAIST History of Present Illness The patient is an 82 year old female who presents to the Emergency Room with complaints of constant back pain starting 2 weeks ago. The patient states that 2 weeks ago she had a colonoscopy done and has had this back pain since. She states that the pain is an achiness. She states that it intermittently becomes much worse and definitely becomes worse when she eats. She notes that when she eats it causes a pressure. She states that she called their office this morning and they told her to come to the ED. The patient complains of feeling flushed and having a dark bowel movement this morning. She notes that she has been having difficulty moving her bowels so she has been taking Miralax. She states that only her first bowel movement this morning was darker than normal. The patient denies melena, fevers, vomiting, hematochezia, eating anything that would make her bowel movements dark, and use of blood thinners. Source of History: patient Onset: 2 weeks ago Position: back Quality: ache, pressure Timing: constant Modifying Factors (Worsening): eating Associated Symptoms: No fevers, No vomiting, No melena, No hematochezia Note: The patient complains of feeling flushed and having a dark bowel movement this morning. The patient denies eating anything that would make her bowel movements dark and use of blood thinners. Review of Systems See HPI for pertinent positives and negatives. A total of ten systems were reviewed and were otherwise negative. Past Medical & Surgical Medical Problems: (1) Atrial flutter (2) Cardiomegaly (3) CLL (chronic lymphocytic leukemia) (4) Disc displacement, lumbar (5) Esophageal reflux (6) History of arthritis (7) History of fibromyalgia (8) Hx of breast cancer (9) Hx of ovarian cyst (10) Hypertension Surgical Problems: (1) S/P cholecystectomy Family History Arthritis Cancer Gallbladder disease Heart disease Hypertension Kidney stones Social History Smoking Status: Never Smoker Alcohol Use: other Marital Status: Housing Status: lives alone Occupation Status: retired Current/Historical Medications Scheduled Acetaminophen (Tylenol Arthritis Ext Rel), 1-2 TABS PO BID Biotin (Biotin), 5,000 MCG PO DAILY Cholecalciferol (Vitamin D3), 1 TAB PO DAILY Cyanocobalamin (Vitamin B-12), 1,000 MCG PO Q2D Docusate Sodium (Colace), 1 CAP PO DAILY Fish Oil (Thornton-3), 2 CAP PO DAILY Zakuniydpks-Stqaefbbuvq-Dwa C- (Glucosamine Chondroitin), 2 TAB PO QAM Hydrochlorothiazide (Hctz), 25 MG PO QAM Multiple Vitamins W/ Minerals (Womens 50+ Multi Vitamin), 1 TAB PO DAILY Probiotic Product (Probiotic), 1 TAB PO DAILY Ranitidine (Zantac), 150 MG PO HS Allergies Coded Allergies: Adhesives (Verified Allergy, Mild, RASH, 01/24/18) CI Pigment Blue 63 (Verified Adverse Reaction, Unknown, over eating, ) Calcitriol (Verified Adverse Reaction, Unknown, headache, 01/24/18) Duloxetine (Verified Adverse Reaction, Unknown, over eating, 01/24/18) Physical Exam Vital Signs Date Time Temp Pulse Resp B/P (MAP) Pulse Ox O2 Delivery O2 Flow Rate FiO2 01/24/18 18:41 59 161/80 99 01/24/18 17:34 57 152/75 99 Room Air 01/24/18 15:34 58 127/53 98 Room Air 01/24/18 13:45 36.8 72 20 191/70 98 Room Air Physical Exam Physical Exam GENERAL: She is oriented to person, place, and time. She appears well- developed and well-nourished. She does not appear distressed. HENT: Exam performed. Head: Normocephalic and atraumatic. Right Ear: External ear normal. No mastoid tenderness. Left Ear: External ear normal. No mastoid tenderness. Mouth/Throat: The oropharynx is clear and moist. No trismus in the jaw. No dental abscesses or uvula swelling. No oropharyngeal exudate or tonsillar abscesses. EYES: Conjunctivae and EOM are normal. Pupils are equal, round, and reactive to light. Right eye exhibits no discharge. Left eye exhibits no discharge. No scleral icterus. NECK: Normal range of motion. Neck supple. No JVD present. No spinous process tenderness present. No carotid bruit present. No rigidity. No tracheal deviation and normal range of motion present. No Brudzinski's sign and no Kernig 's sign noted. CV: Normal rate, regular rhythm, normal heart sounds and intact distal pulses. There is no peripheral edema. Palpable radial pulses bue. PULM/CHEST: Effort normal and breath sounds normal. No respiratory distress. No stridor. She has no wheezes. She has no rales. Chest Wall: She exhibits no tenderness. ABD: The abdomen is soft. Bowel sounds are normal. She has no distension. No mass is present. There is no tenderness. There is no rebound, no guarding, no Dorman's sign and no tenderness at McBurney's point. Rovsig negative. No CVA tenderness. MUSC/SKEL: Normal range of motion. There is no peripheral edema, tenderness or deformity. No C, T, or L spine tenderness. LYMPH: No cervical adenopathy. NEURO: She is alert and oriented to person, place, and time. She has normal strength. No cranial nerve deficit or sensory deficit. Coordination and gait normal. GCS eye subscore is 4. GCS verbal subscore is 5. GCS motor subscore is 6. Cerebellar tests wnl. SKIN: Skin is warm and dry. She is not diaphoretic. PSYCH: She has a normal mood and affect. Behavior is normal. Judgment and thought content normal. Medical Decision & Procedures ER Provider Diagnostic Interpretation: Radiology results as stated below per my review and radiologist interpretation: PA CHEST WITH ABDOMINAL SERIES CLINICAL HISTORY: Generalized abdominal pain. FINDINGS: A PA chest radiograph is compared to study dated 10/29/2016 and correlated with chest CT dated 07/06/2014. The heart is enlarged and there is atherosclerotic calcification of the thoracic aorta. The pulmonary vasculature is noncongested. Chronic interstitial thickening is similar to previous. No airspace consolidation or pleural effusion is identified. No pneumothorax is seen. The skeletal structures are osteopenic. The bony thorax is grossly intact. Degenerative change is noted in the thoracic spine. Supine and erect abdominal radiographs are correlated with abdominal CT dated 01/17/2018. Cholecystectomy clips are noted in the right upper quadrant. There is a nonobstructed abdominal bowel gas pattern. Moderate to severe colonic fecal retention is observed. No evidence of intraperitoneal free air is seen. There are calcified splenic granulomas. Phleboliths are observed in the pelvis. The lumbosacral spine and bony pelvis appear intact. There is mild lumbosacral spondylosis and scoliosis. IMPRESSION: 1. Cardiomegaly with no active disease in the chest. 2. Nonobstructed abdominal bowel gas pattern noting moderate to severe constipation. Electronically signed by: Sathya Bueno M.D. 01/24/2018 3:02 PM Dictated Date/Time: 01/24/2018 3:00 PM ABD/PELVIS IV CONTRAST ONLY CLINICAL HISTORY: 82 years-old Female presenting with rlq pain r/o appy. TECHNIQUE: Multidetector CT of the abdomen and pelvis was performed after the administration of intravenous contrast. IV contrast: 117 mL of Optiray 320. A dose lowering technique was used consistent with the principles of ALARA (as low as reasonably achievable). COMPARISON: 01/17/2018. CT DOSE (mGy.cm): The estimated cumulative dose is 1227.56 mGy.cm. FINDINGS: [employer] topogram: Cholecystectomy clips. Lung bases: Minimal basilar opacities, likely atelectasis. Calcified mediastinal lymph nodes noted. Mild multichamber enlargement of the heart. No pericardial or pleural effusion. Liver: Normal morphology. Subcentimeter well-defined hypodensities, most prominently in the left hepatic lobe likely hepatic cysts or hamartomas. Patent hepatic vasculature. Biliary: Mild biliary ductal prominence likely a reservoir effect in the post cholecystectomy state. Gallbladder surgically absent. Pancreas: Normal. Spleen: Scattered parenchymal calcifications likely suggest a history of chronic granulomatous infection. Adrenal glands: Normal. Kidneys and ureters: Several well-defined hypodensities in the kidneys, likely cysts. Nonobstructing 3 mm calculus in the interpolar region of the right kidney. Additional adjacent punctate nonobstructing right renal calculus. No left renal calculi. No hydronephrosis. Mild distention of the right ureter without evidence of an obstructing calculus or mass. This appearance is similar to the prior exam. Left ureter nondistended. Bladder: Circumferential bladder wall thickening. Pelvic organs: Uterus and ovaries normal. Bowel: Mild wall thickening of the rectum suggested in the mid to lower portion. No surrounding infiltration of the mesorectal fat. Appendix not visualized. Mild stool burden throughout the colon. Trace hilar hernia may be present. Peritoneal cavity: No free fluid or intraperitoneal gas. Lymph nodes: No enlarged lymph nodes in the abdomen or pelvis. Vasculature: Atherosclerosis of the normal caliber abdominal aorta. IVC patent. Abdominal wall: Fat-containing ventral hernia. This is at the inferior margin of the diastatic abdominal rectus. Musculoskeletal: Degenerative changes of the spine. Degenerative changes of the pubic symphysis and sacroiliac joints. IMPRESSION: 1. The appendix is not visualized though there is no inflammatory change in the right lower quadrant. 2. Mild wall thickening of the mid to lower portion of the rectum is suggested. Could be due to underdistention or proctitis. Correlate with rectal exam. 3. Circumferential bladder wall thickening suggested. Correlate with urinalysis to exclude cystitis. 4. Fat-containing ventral hernia at the inferior margin of the diastatic abdominal rectus. The appearance is unchanged from prior. No evidence to suggest strangulation of the hernia sac. 5. Nonobstructing right renal calculi. 6. Evidence of prior granulomatous infection. 7. Postsurgical changes of cholecystectomy. Electronically signed by: Km Almeida M.D. 01/24/2018 5:09 PM Dictated Date/Time: 01/24/2018 4:55 PM Laboratory Results 01/24/18 14:39 Red Blood Count 4.19, Mean Corpuscular Volume 90.2, Mean Corpuscular Hemoglobin 31.0, Mean Corpuscular Hemoglobin Concent 34.4, Mean Platelet Volume 9.7, Neutrophils (%) (Auto) 35.0, Lymphocytes (%) (Auto) 59.2, Monocytes (%) (Auto) 4.2, Eosinophils (%) (Auto) 1.1, Basophils (%) (Auto) 0.2, Neutrophils # (Auto) 6.24, Lymphocytes # (Auto) 10.53, Monocytes # (Auto) 0.74, Eosinophils # (Auto) 0.19, Basophils # (Auto) 0.04 01/24/18 14:39 Test 01/24/18 14:39 White Blood Count 17.79 K/uL (4.8-10.8) Red Blood Count 4.19 M/uL (4.2-5.4) Hemoglobin 13.0 g/dL (12.0-16.0) Hematocrit 37.8 % (37-47) Mean Corpuscular Volume 90.2 fL (80-100) Mean Corpuscular Hemoglobin 31.0 pg (25-34) Mean Corpuscular Hemoglobin Concent 34.4 g/dl (32-36) Platelet Count 181 K/uL (130-400) Mean Platelet Volume 9.7 fL (7.4-10.4) Neutrophils (%) (Auto) 35.0 % Lymphocytes (%) (Auto) 59.2 % Monocytes (%) (Auto) 4.2 % Eosinophils (%) (Auto) 1.1 % Basophils (%) (Auto) 0.2 % Neutrophils # (Auto) 6.24 K/uL (1.4-6.5) Lymphocytes # (Auto) 10.53 K/uL (1.2-3.4) Monocytes # (Auto) 0.74 K/uL (0.11-0.59) Eosinophils # (Auto) 0.19 K/uL (0-0.5) Basophils # (Auto) 0.04 K/uL (0-0.2) RDW Standard Deviation 42.9 fL (36.4-46.3) RDW Coefficient of Variation 13.2 % (11.5-14.5) Immature Granulocyte % (Auto) 0.3 % Immature Granulocyte # (Auto) 0.05 K/uL (0.00-0.02) Urine Color YELLOW Urine Appearance CLEAR (CLEAR) Urine pH 6.0 (4.5-7.5) Urine Specific [place] 1.009 (1.000-1.030) Urine Protein NEG (NEG) Urine Glucose (UA) NEG (NEG) Urine Ketones NEG (NEG) Urine Occult Blood 1+ (NEG) Urine Nitrite NEG (NEG) Urine Bilirubin NEG (NEG) Urine Urobilinogen NEG (NEG) Urine Leukocyte Esterase NEG (NEG) Urine WBC (Auto) 0 /hpf (0-5) Urine RBC (Auto) 0-4 /hpf (0-4) Urine Hyaline Casts (Auto) 0 /lpf (0-5) Urine Epithelial Cells (Auto) 0-5 /lpf (0-5) Urine Bacteria (Auto) NEG (NEG) Anion Gap 8.0 mmol/L (3-11) Est Creatinine Clear Calc Drug Dose 109.1 ml/min Estimated GFR () 108.1 Estimated GFR (Non- 93.3 BUN/Creatinine Ratio 40.2 (10-20) Calcium Level 9.2 mg/dl (8.5-10.1) Total Bilirubin 0.4 mg/dl (0.2-1) Direct Bilirubin < 0.1 mg/dl (0-0.2) Aspartate Amino Transf (AST/SGOT) 15 U/L (15-37) Alanine Aminotransferase (ALT/SGPT) 30 U/L (12-78) Alkaline Phosphatase 84 U/L (45-117) Total Protein 7.1 gm/dl (6.4-8.2) Albumin 3.9 gm/dl (3.4-5.0) Lipase 73 U/L (73-393) Laboratory results reviewed by me Medications Administered Medications (Trade) Dose Ordered Sig/Nataliia Route Start Time Stop Time Status Last Admin Dose Admin Sodium Chloride 500 ml @ 999 mls/hr Q31M STAT IV 01/24/18 15:19 01/24/18 15:49 DC 01/24/18 15:34 999 MLS/HR Sodium Chloride 1,000 ml @ 125 mls/hr Q8H STAT IV 01/24/18 15:19 01/24/18 20:18 DC 01/24/18 15:34 125 MLS/HR ED Course 1424: The patient was evaluated in room B11B. A complete history and physical exam was performed. 1519: Ordered NSS 1000 ml @ 125 mls/hr IV, NSS 500 ml @ 999 mls/hr IV. 1827: Vitals signs are stable. Her labs showed leukocytosis at 17.79, but otherwise were within normal limits. Her urine was within normal limits. CT of abdomen showed no inflammatory changes in the RLQ, no incarcerated hernia, no obstruction, and no perforation. It did show a nonobstructing right renal calculi. She will be discharged and follow up. DISCHARGE - Plan of care discussed with patient and questions answered. The patient was given both verbal and printed discharge instructions. The patient verbalized understanding and ability to comply. The patient is to seek outpatient follow up as noted in the discharge instructions. The patient verbalized understanding and ability to comply. The patient is discharged in stable condition. The patient was instructed to return for worsening symptoms. Medical Decision Vitals signs are stable. Her labs showed leukocytosis at 17.79, but otherwise were within normal limits. Her urine was within normal limits. CT of abdomen showed no inflammatory changes in the RLQ, no incarcerated hernia, no obstruction, and no perforation. It did show a nonobstructing right renal calculi. She will be discharged and follow up. DISCHARGE - Plan of care discussed with patient and questions answered. The patient was given both verbal and printed discharge instructions. The patient verbalized understanding and ability to comply. The patient is to seek outpatient follow up as noted in the discharge instructions. The patient verbalized understanding and ability to comply. The patient is discharged in stable condition. The patient was instructed to return for worsening symptoms. Medication Reconcilliation Current Medication List: was personally reviewed by me Blood Pressure Screening Patient's blood pressure: Elevated blood pressure Blood pressure disposition: Elevated BP felt to be situational Impression Primary Impression: Abdominal pain Scribe Attestation The scribe's documentation has been prepared under my direction and personally reviewed by me in its entirety. I confirm that the note above accurately reflects all work, treatment, procedures, and medical decision making performed by me. The chart was completed utilizing [employer] Speech voice recognition software. Grammatical errors, random word insertions, pronoun errors, and incomplete sentences are an occasional consequence of this system due to software limitations, ambient noise, and hardware issues. Any formal questions or concerns about the content, text, or information contained within the body of this dictation should be directly addressed to the physician for clarification. Departure Information Dispostion Home / Self-Care Referrals RV. Kemp MD (PCP) Forms HOME CARE DOCUMENTATION FORM, IMPORTANT VISIT INFORMATION Patient Instructions My [facility] Additional Instructions Return to emergency department if you develop fever greater 100.4, blood in her stools, dark black tarry stools, blood in urine, pain with urination, chest pain , difficulty breathing, vomiting, blood in your vomit, dark black vomit, or your symptoms worsen. Problem Qualifiers Primary Impression: Abdominal pain Abdominal location: unspecified location Qualified Codes: R10.9 - Unspecified abdominal pain
== END 2018-01-24 18:42 | disposition home or self-care (01) ==
LOC: C.EDB 13:44
DX: R10.31 Right lower quadrant pain (principal); D72.829 Elevated white blood cell count, unspecified; M51.26 Other intervertebral disc displacement, lumbar region; I10 Essential (primary) hypertension; Z98.890 Other specified postprocedural states; Z79.899 Other long term (current) drug therapy; Z91.048 Other nonmedicinal substance allergy status; Z91.041 Radiographic dye allergy status; Z82.69 Family history of other diseases of the musculoskeletal system and connective tissue

== ENCOUNTER 2022-10-09 08:36 | Observation (INO) ==
--- NOTE | 2022-09-11 15:16 | PAT Medication Instructions ---
Medication Instructions Date of Service September 11, 2022 Home Medications Medication Instructions Recorded hydrochlorothiazide 25 mg tablet 25 mg PO QAM #90 tabs 01/10/22 lactulose 20 gram/30 mL oral 20 g (30 mL) PO BID PRN 05/25/22 solution constipation #1,500 mL mupirocin 2 % topical ointment 1 applic topical BID PRN epistaxis 07/18/22 #15 grams diclofenac sodium 1 % topical gel 2 g topical QID #100 grams 08/21/22 (Voltaren Arthritis Pain) acetaminophen 650 mg tablet,extended release 1,300 mg PO BID biotin 5 mg capsule 5 mg PO QAM cholecalciferol (vitamin D3) 50 mcg (2,000 unit) tablet 2,000 units PO QAM polyethylene glycol 3350 17 gram/dose oral powder (Miralax) 17 g PO QPM cyanocobalamin (vitamin B-12) 1,000 mcg tablet 500 mcg PO .every other day hydrochlorothiazide 25 mg tablet 25 mg PO QAM glucosamine 500 mg-chondroitin 116.7 mg-herbal no.270 133.3 mg capsule (Cosamin ASU (with AKBA)) 2 cap PO QAM lactulose 20 gram/30 mL oral solution 20 g (30 mL) PO BID PRN constipation methylcellulose (laxative) 500 mg tablet (Citrucel) 500 mg PO BID mupirocin 2 % topical ointment 1 applic topical BID PRN epistaxis famotidine 20 mg tablet 20 mg PO HS simethicone 180 mg capsule (Anti-Gas Ultra Strength) 180 mg PO BID PRN gas relief sodium chloride 0.65 % nasal spray aerosol (Saline Nasal) 1 spray intranasal ONCE PRN Congestion tumeric 100 mg-young 150 mg-olive 50 mg-oreg 150 mg-caprylate capsule 1,600 cap PO QAM diclofenac sodium 1 % topical gel (Voltaren Arthritis Pain) 2 g topical QID fluticasone furoate 50 mcg/actuation blister powder for inhalation (Arnuity Ellipta) 1 inh inhalation QAM propylene glycol 0.6 % eye drops (Systane Balance) 1 drp ophthalmic (eye) BID PRN Dry Eyes ASK your surgeon for instructions diclofenac sodium 1 % topical gel (Voltaren Arthritis Pain) 2 g topical QID STOP taking 2 weeks before surgery biotin 5 mg capsule 5 mg PO QAM glucosamine 500 mg-chondroitin 116.7 mg-herbal no.270 133.3 mg capsule (Cosamin ASU (with AKBA)) 2 cap PO QAM tumeric 100 mg-young 150 mg-olive 50 mg-oreg 150 mg-caprylate capsule 1,600 cap PO QAM DO NOT take the morning of surgery cholecalciferol (vitamin D3) 50 mcg (2,000 unit) tablet 2,000 units PO QAM cyanocobalamin (vitamin B-12) 1,000 mcg tablet 500 mcg PO .every other day hydrochlorothiazide 25 mg tablet 25 mg PO QAM lactulose 20 gram/30 mL oral solution 20 g (30 mL) PO BID PRN constipation methylcellulose (laxative) 500 mg tablet (Citrucel) 500 mg PO BID mupirocin 2 % topical ointment 1 applic topical BID PRN epistaxis simethicone 180 mg capsule (Anti-Gas Ultra Strength) 180 mg PO BID PRN gas relief Take morning of surgery With a small sip of water, OTHERWISE NOTHING TO EAT OR DRINK AFTER MIDNIGHT: acetaminophen 650 mg tablet,extended release 1,300 mg PO BID sodium chloride 0.65 % nasal spray aerosol (Saline Nasal) 1 spray intranasal ONCE PRN Congestion (if needed) fluticasone furoate 50 mcg/actuation blister powder for inhalation (Arnuity El lipta) 1 inh inhalation QAM propylene glycol 0.6 % eye drops (Systane Balance) 1 drp ophthalmic (eye) BID PRN Dry Eyes (if needed) Take evening before surgery acetaminophen 650 mg tablet,extended release 1,300 mg PO BID polyethylene glycol 3350 17 gram/dose oral powder (Miralax) 17 g PO QPM lactulose 20 gram/30 mL oral solution 20 g (30 mL) PO BID PRN constipation (if needed) methylcellulose (laxative) 500 mg tablet (Citrucel) 500 mg PO BID mupirocin 2 % topical ointment 1 applic topical BID PRN epistaxis (if needed) famotidine 20 mg tablet 20 mg PO HS simethicone 180 mg capsule (Anti-Gas Ultra Strength) 180 mg PO BID PRN gas relief (if needed) sodium chloride 0.65 % nasal spray aerosol (Saline Nasal) 1 spray intranasal ONCE PRN Congestion (if needed) propylene glycol 0.6 % eye drops (Systane Balance) 1 drp ophthalmic (eye) BID PRN Dry Eyes (if needed) Other Notes If you have any questions please call us at [phone] or [phone] or [phone] or [phone]
--- NOTE | 2022-09-14 13:23 | Anesthesiology Consultation ---
Date of Service September 14, 2022 Assessment & Plan (1) Encounter for pre-operative examination: Chart Review Chart Review: Acceptable Risk for Surgery (pending PCP office visit/clearance 09/15/22 and 09/28/22 vascular note ) and Patient NOT seen in Pre Admission Testing - Awaiting PCP office visit 09/15/22 (workload note sent to PCP re: if patient was optimized for surgery) -Awaiting [place] vascular note 09/28/22 Pt sensitive to medications - Pt lives alone- in regards to chlorhexidine wipes- patient may not be able to wipe all of part of her shoulder prior to procedure Pt is NOT an Outpatient Joint candidate Per PAT appt on 09/14/22, patient denies any recent travel or large group activities. Pt is vaccinated for Covid. Will leave to surgeon's discretion if preop Covid testing needed. Educated on importance of using Covid precautions one week prior to surgery Pt last seen by cardio 01/25/22= fat[place]ot associated with classic cardiac symptoms and recent echocardiogram does not show any significant abnormalities. Do not think further cardiac evaluation at this time is needed as she has many reasons to suffer from fatigue. If symptoms worsen and are more suggestive of cardiac etiologystress testing could be considered. Mitral regurgitationwe will need to follow-up with echocardiogramsannually is probably sufficient. Aortic sclerosiswe will follow with echocardiography. Hypertensionat goal. Follow-up in 6 months (Discussed with Dr. Su- patient stable on exam; vital signs acceptable; EKG shows NSR/rate controlled; ECHO 2021- patient can proceed without additional cardio follow up) History Surgery Operation Date: 10/09/22 08:30 Proposed Procedures p Left Total Shoulder Arthroplasty Reverse - Christian Cuba DO Height/Weight Height: 5 ft 1 in Weight: 94.1 kg Allergies Allergy/AdvReac Type Severity Reaction Status Date / Time mold Allergy Intermediate sinus Verified 09/15/22 10:04 congestion adhesive Allergy Mild RASH Verified 09/15/22 10:04 dexamethasone Allergy Mild swelling Verified 09/15/22 10:04 prednisone Allergy Mild swelling Verified 09/15/22 10:04 guaifenesin [From Mucinex] Allergy Unknown Unknown Verified 09/15/22 10:04 NSAIDS (Non-Steroidal AdvReac Intermediate breakthrough Verified 09/15/22 10:04 Anti-Inflamma bleeding, anemia, burning off the abdomen celecoxib [From Celebrex] AdvReac Mild decreased Unverified 09/15/22 10:04 urine flow pantoprazole AdvReac Mild digestive Verified 09/15/22 10:04 issues calcitriol AdvReac Unknown headache Verified 09/15/22 10:04 duloxetine AdvReac Unknown over eating Verified 09/15/22 10:04 pregabalin [From Lyrica] AdvReac Confusion Verified 09/15/22 10:04 Medications Home Medications Medication Instructions Recorded Confirmed Last Taken acetaminophen 650 mg 1,300 mg PO BID 02/06/19 09/15/22 06/20/22 tablet,extended release biotin 5 mg capsule 5 mg PO QAM 02/06/19 09/15/22 06/20/22 cholecalciferol (vitamin D3) 50 2,000 units PO QAM 02/06/19 09/15/22 06/20/22 mcg (2,000 unit) tablet polyethylene glycol 3350 17 17 g PO QPM 05/13/21 09/15/22 06/20/22 gram/dose oral powder (Miralax) cyanocobalamin (vitamin B-12) 500 mcg PO .every other day 10/25/21 09/15/22 06/20/22 1,000 mcg tablet hydrochlorothiazide 25 mg tablet 25 mg PO QAM #90 tabs 01/10/22 09/15/22 06/21/22 08:00 glucosamine 500 mg-chondroitin 2 cap PO QAM 02/17/22 09/15/22 06/20/22 116.7 mg-herbal no.270 133.3 mg capsule (Cosamin ASU (with AKBA)) lactulose 20 gram/30 mL oral 20 g (30 mL) PO BID PRN 05/25/22 09/15/22 Unknown solution constipation #1,500 mL methylcellulose (laxative) 500 mg 500 mg PO BID 05/29/22 09/15/22 06/20/22 tablet (Citrucel) mupirocin 2 % topical ointment 1 applic topical BID PRN epistaxis 07/18/22 09/15/22 Unknown #15 grams famotidine 20 mg tablet 20 mg PO HS 08/03/22 09/15/22 Unknown simethicone 180 mg capsule 180 mg PO BID PRN gas relief 08/03/22 09/15/22 Unknown (Anti-Gas Ultra Strength) sodium chloride 0.65 % nasal spray 1 spray intranasal ONCE PRN 08/03/22 09/15/22 Unknown aerosol (Saline Nasal) Congestion tumeric 100 mg-young 150 mg-olive 1,600 cap PO QAM 08/03/22 09/15/22 Unknown 50 mg-oreg 150 mg-caprylate capsule diclofenac sodium 1 % topical gel 2 g topical QID #100 grams 08/21/22 09/15/22 Unknown (Voltaren Arthritis Pain) propylene glycol 0.6 % eye drops 1 drp ophthalmic (eye) BID PRN Dry 08/25/22 09/15/22 Unknown (Systane Balance) Eyes fluticasone propionate 50 See Rx Instructions .Route .COMPLEX 09/14/22 09/15/22 Unknown mcg/actuation nasal spray,suspension Past Medical History Medical History (Updated 09/18/22 @ 08:30 by Ashley Inman PA-C) Anxiety Atrial flutter Follows with [facility]- last seen 01/2022 (no AC) Bilateral sensorineural hearing loss No hearing aids Bilateral tinnitus Chronic low back pain Chronic lymphocytic leukemia Follows with Dr. 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)- no meds at this time- under observastion per 06/2022 neuro note Exercise / Class Metabolic Activity III < 4 Walking/Shop/Light housework (no chest pain or SOB with flat surface, short distance ambulation- uses wheeled walker ) Past Family History Family History Sister Breast cancer Father Congestive heart failure Mother Coronary heart disease Hypertension Family/Other Cancer Uncle Kidney malignancy Brother Prostate cancer Grandfather Prostate cancer Other Hx of breast cancer No family history of adverse response to anesthesia Denies family history of Colon cancer Ovarian cancer Myocardial infarction Colorectal cancer Past Surgical History Surgical History Encounter for debridement of skin right toes H/O colonoscopy H/O esophagogastroduodenoscopy Hx of right cataract extraction Right cataracts extraction IOL (06/21/22): MAC at [facility] [place] S/P cholecystectomy S/P dilation and curettage S/P ovarian cystectomy S/P tonsillectomy and adenoidectomy Past Anesthesia History No Hx of Anesthesia Complications (with exception to "sensitive to medications") and No Family Hx of Anesthesia Complications History of PONV No Hx of PONV, No Hx of Motion Sickness and Other (occ vertigo if looking down ) Social History Smoking Status: Never smoker Do You Dip or Chew Tobacco: No Hx Alcohol Use: No Hx Substance Use: No substance use type: does not use Review of Systems -Chronic congestion- occ cough at night when laying down- mild and stable - GERD - uses Pepcid- controlled and stable Patient denies chest pain, shortness of breath, dyspnea on exertion, wheezing, palpitations. No hx of seizures, stroke, CA. No hx of blood clots or blood transfusions Physical Exam Vital Signs VITALS BP 128/63 P 62 TEMP 98.0 SP02 95% RESP 16 Constitutional no acute distress ENMT Mouth: no TMJ clicking Thyromental Distance: > or= 3.5 Finger Breadths (3.5) Mallampati Class: III Side teeth and molars missing [place] to molar Neck + limited neck extension (significant ) Respiratory normal respiratory effort; no respiratory distress Auscultation: lungs clear to auscultation bilaterally; no wheezes Cardiovascular Rate/Rhythm: regular rate and regular rhythm Heart Sounds: no murmur Vessels: no carotid bruit Musculoskeletal Spine: + pain with cervical ROM (R>L (chronic neck pain as well) ) Extremities: extremities normal to inspection Psychiatric Orientation: alert Lab Results Anesthesia Preop Results Results Anesthesia Widget: WBC 17.37 K/ul (4.8-10.8) H 09/14/22 Hgb 11.7 g/dl (12.0-16.0) L 09/14/22 Hct 34.2 % (37.0-47.0) L 09/14/22 Plt 209 K/uL (130-400) 09/14/22 Na 132 mmol/L (136-145) L 09/14/22 K 4.0 mmol/L (3.5-5.1) 09/14/22 Cl 97 mmol/L (98-107) L 09/14/22 CO2 30 mmol/L (21-32) 09/14/22 BUN 16 mg/dl (6-23) 09/14/22 Creat 0.42 mg/dl (0.6-1.2) L 09/14/22 Glucose Level 94 mg/dl (70-99(Fasting)) 09/14/22 PT 10.7 Seconds (9.0-12.0) 09/14/22 PTT 28.2 Seconds (21.0-31.0) 09/14/22 INR 1.0 (0.9-1.1) 09/14/22 HA1c 5.0 % (4.5-5.6) 09/14/22 Blood Type O Positive 09/14/22 Antibody Screen NEGATIVE 09/14/22 Testing Laboratory Results Leukocytosis- hx of CLL- chronic and stable Electrocardiogram Date: 09/14/22 Findings: + NSR @ (62bpm ) Left axis deviation Incomplete RBBB When compared to EKG from 01/29/2017QRS axis shifted left per cardio Chest X-Ray Date: 09/14/22 FINDINGS: Lung volumes are normal. Lungs are clear. There is no pneumothorax or pleural effusion. Cardiac size is stable. Mediastinal contours are normal. There is no evidence for pulmonary edema. Degenerative changes of both shoulders are incidentally noted. IMPRESSION: No acute cardiopulmonary findings. Stable cardiomegaly. Echocardiogram Date: 01/02/22 EF: 60-65% LV Function: normal RWMA: + none Other Findings: + LVH (mild/concentric ) and + diastolic dysfunction (Grade I ) Mild RV dilation with normal systolic function Mild biatrial dilation Sclerotic AV without significant stenosis Mild MR. Normal estimated RVSP COVID-19 Risk Screen Screening Information COVID-19 Screen Date: 09/14/22 Exposure 21 Days Family/Household +COVID Last 21 Days: No Exposure 10 Days Any COVID Exposure Last 10 Days: No Symptoms Last 10 Days Experienced COVID Sx Last 10 Days: No + COVID 0-90 Days COVID + in Last 0-90 Days: No Risk Plan COVID Risk Plan: No Risk Identified Patient Education COVID Preop Screening Education Complete: Yes
--- NOTE | 2022-10-05 13:38 | History & Physical Report ---
Date of Service October 05, 2022 Assessment & Plan (1) Primary osteoarthritis of left shoulder: We will proceed with a left reverse shoulder arthroplasty. Postoperatively she will be placed in a sling and kept overnight in the hospital for postop medical management. She plans to use hospital home health upon discharge. History of Present Illness Chief Complaint: Osteoarthritis of the left shoulder. Primary Care Provider: Christian HainesDO Mena is a pleasant 86-year-old female who is been doing with chronic increasing left shoulder pain. 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 After failing conservative treatment, she has elected proceed with a left reverse shoulder arthroplasty.. Allergies Allergy/AdvReac Type Severity Reaction Status Date / Time mold Allergy Intermediate sinus Verified 10/04/22 11:28 congestion adhesive Allergy Mild RASH Verified 10/04/22 11:28 dexamethasone Allergy Mild swelling Verified 10/04/22 11:28 prednisone Allergy Mild swelling Verified 10/04/22 11:28 guaifenesin [From Mucinex] Allergy Unknown Unknown Verified 10/04/22 11:28 NSAIDS (Non-Steroidal AdvReac Intermediate breakthrough Verified 10/04/22 11:28 Anti-Inflamma bleeding, anemia, burning off the abdomen celecoxib [From Celebrex] AdvReac Mild decreased Unverified 10/04/22 11:28 urine flow pantoprazole AdvReac Mild digestive Verified 10/04/22 11:28 issues calcitriol AdvReac Unknown headache Verified 10/04/22 11:28 duloxetine AdvReac Unknown over eating Verified 10/04/22 11:28 pregabalin [From Lyrica] AdvReac Confusion Verified 10/04/22 11:28 Home Medications Medication Instructions Recorded Confirmed Type acetaminophen 650 mg 1,300 mg PO BID 02/06/19 10/04/22 History tablet,extended release biotin 5 mg capsule 5 mg PO QAM 02/06/19 10/04/22 History cholecalciferol (vitamin D3) 50 2,000 units PO QAM 02/06/19 10/04/22 History mcg (2,000 unit) tablet polyethylene glycol 3350 17 17 g PO QPM 05/13/21 10/04/22 History gram/dose oral powder (Miralax) cyanocobalamin (vitamin B-12) 500 mcg PO .every other day 10/25/21 10/04/22 History 1,000 mcg tablet hydrochlorothiazide 25 mg tablet 25 mg PO QAM #90 tabs 01/10/22 10/04/22 Rx glucosamine 500 mg-chondroitin 2 cap PO QAM 02/17/22 10/04/22 History 116.7 mg-herbal no.270 133.3 mg capsule (Cosamin ASU (with AKBA)) lactulose 20 gram/30 mL oral 20 g (30 mL) PO BID PRN 05/25/22 10/04/22 Rx solution constipation #1,500 mL methylcellulose (laxative) 500 mg 500 mg PO BID 05/29/22 10/04/22 History tablet (Citrucel) mupirocin 2 % topical ointment 1 applic topical BID PRN epistaxis 07/18/22 10/04/22 Rx #15 grams famotidine 20 mg tablet 20 mg PO HS 08/03/22 10/04/22 History simethicone 180 mg capsule 180 mg PO BID PRN gas relief 08/03/22 10/04/22 History (Anti-Gas Ultra Strength) sodium chloride 0.65 % nasal spray 1 spray intranasal ONCE PRN 08/03/22 10/04/22 History aerosol (Saline Nasal) Congestion tumeric 100 mg-young 150 mg-olive 1,600 cap PO QAM 08/03/22 10/04/22 History 50 mg-oreg 150 mg-caprylate capsule propylene glycol 0.6 % eye drops 1 drp ophthalmic (eye) BID PRN Dry 08/25/22 10/04/22 History (Systane Balance) Eyes fluticasone propionate 50 See Rx Instructions .Route .COMPLEX 09/14/22 10/04/22 History mcg/actuation nasal spray,suspension celecoxib 200 mg capsule (Celebrex) 200 mg PO DAILY 09/22/22 10/04/22 History diclofenac sodium 1 % topical gel 2 g topical QID 09/22/22 10/04/22 History (Aspercreme Arthritis Pain) diclofenac sodium 1 % topical gel 2 g topical QID 09/25/22 10/04/22 History lidocaine HCl 4 % topical cream 09/25/22 10/04/22 History (Aspercreme (lidocaine HCl)) multivitamin 1 tab PO QAM 09/25/22 10/04/22 History Past Med/Surg History Medical History Anxiety Atrial flutter Follows with [facility]- last seen 01/2022 (no AC) Bilateral sensorineural hearing loss No hearing aids Bilateral tinnitus Chronic low back pain Chronic lymphocytic leukemia Follows with Dr. 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)- no meds at this time- under observastion per 06/2022 neuro note Surgical History Encounter for debridement of skin right toes H/O colonoscopy H/O esophagogastroduodenoscopy Hx of right cataract extraction Right cataracts extraction IOL (06/21/22): MAC at [facility] S/P cholecystectomy S/P dilation and curettage S/P ovarian cystectomy S/P tonsillectomy and adenoidectomy Family History Sister Breast cancer Father Congestive heart failure Mother Coronary heart disease Hypertension Family/Other Cancer Uncle Kidney malignancy Brother Prostate cancer Grandfather Prostate cancer Other Hx of breast cancer No family history of adverse response to anesthesia Denies family history of Colon cancer Ovarian cancer Myocardial infarction Colorectal cancer Social History Smoking Status: Never smoker Second Hand Exposure: No; Do You Dip or Chew Tobacco: No; Hx Alcohol Use: No Hx Substance Use: No Preferred Language: Cypriot Communication Ability: Effective Visual Impairment: Limited Hearing Ability: Hard of Hearing Bathing Suit Maker Required: No Beliefs That Will Affect Care: None marital status: / Current Living Situation: Alone current occupational status: retired How many Children do You have: 4 How many Children do You have Comment: 4 boys Feels Safe at Home: Yes Childhood Exposure to Second-Hand Smoke: No Diet: regular Diet Comment: dash diet during the past year weight has: remained stable Dental Care, Regularly: Yes Physical Activity Frequency: Does not Exercise Seatbelt Use: always Sunscreen Use: Yes Do you think of yourself as: straight/heterosexual Assistive Devices: Cane and Walker Review of Systems All systems reviewed & are unremarkable except as noted in HPI & below. Physical Exam On physical examination left shoulder, he had decreased range of motion. He had crepitus throughout. He has pain of the glenohumeral joint line.. Constitutional WD/WN, vitals as above Eyes PERRL, conjunctivae normal, anicteric sclerae ENMT external ear and nose normal, oropharynx normal Neck trachea midline, no thyromegaly Respiratory normal respiratory effort, lungs clear to auscultation Cardiovascular RRR, no murmur, no edema Gastrointestinal (Abdomen) normal bowel sounds, soft, nontender, no hepatosplenomegaly Skin no rashes, warm and dry Psychiatric A+Ox3, euthymic affect Results & Data Results & Data Laboratory Results . Diagnostic Findings X-rays of the left shoulder show advanced osteoarthritis with joint space narrowing, osteophyte formation, and [id number] articulation.. PG Care Time/CCT Total # of Minutes Spent Total Time Spent with Patient: Total time spent is greater than 50% in coordination of care (as documented) at patient's floor/unit and/or counseling patient: Coding Level of Care Code None Diagnoses Primary osteoarthritis of left shoulder M19.012
--- NOTE | 2022-10-09 08:18 | History & Physical Bridge Note ---
Date of Service October 09, 2022 History & Physical Bridge Note I have examined the patient, reviewed the History & Physical and in the interval since the performance of the History & Physical I have noted the following changes of clinical significance: no changes noted
[~2022-10-09 08:36] MED LIST changes: -ACET1TAB84 PO; +ACETAMINOPHEN 500 MG TAB PO SCH; -BIOT1CAP3 PO; +BUPIVACAINE 0.5 % 5 MG/1 ML PF 10ML VIAL ONE; -CHOL20007 PO; -CYAN10005 PO; -DOCU-94 PO; +FAMOTIDINE 20 MG TAB PO SCH; +GABAPENTIN 300 MG CAP PO SCH; -GLUCTAB7 PO; -HYDR25TA4 PO; +LR 15ML/HR IV SCH; +LR 60ML/HR IV SCH; -MULT-602 PO; -OMEG10007 PO; +ORTHO JOINT MIX INFIL SCH; -PROB1TAB16 PO; -RANI150T85 PO; +TRANEXAMIC ACID 1,000 MG **IV Intra-op IV SCH; +TRANEXAMIC ACID 1,000 MG **IV Pre-op IV SCH; -Tumeric PO; +ceFAZolin 2000MG 2,000 MG/15 ML SYR IV SCH; +dexAMETHasone 4 MG TAB PO SCH
[2022-10-09] MEDS ORDERED: MIDAZOLAM HCL 1 MG/ML 2ML VIAL ONE (09:52)
[2022-10-09] MEDS ORDERED: fentaNYL citrate PF 100 MCG/2 ML VIAL ONE ×2 (09:53→12:48)
[2022-10-09] MEDS ORDERED: ORTHO JOINT ANESTHETIC ONE (10:31)
--- NOTE | 2022-10-09 11:58 | Operative Report ---
PG Post Operative Report Pre & Post Diagnosis Operation Date: 10/09/22 10:20 Pre-Op Diagnosis: Cuff tear arthropathy of the left shoulder Post-Op Diagnosis: Cuff tear arthropathy of the left shoulder I identified the patient and participated in the time-out.: Yes Procedure Operation Date: 10/09/22 10:20 Actual Procedures p Left Total Shoulder Arthroplasty Reverse(Left) - Christian Cuba DO Surgeon Christian Cuba DO Stockkeeper Christian Pritchard PA-C Estimated Blood Loss 150 Findings Consistent with Post-Op Diagnosis Specimens Left humeral head Description of Procedure A CPT code modifier 59: The long head of the biceps tendon was enlarged and inflamed consistent with tendinopathy. A tenodesis was opted. This was a separate and distinct portion of the procedure. For these reasons, a CPT code modifier 59 will be added to this case. Implants used: I used a Biomet Comprehensive reverse total shoulder arthroplasty system with a size 13 press fit micro humeral stem, a +6 offset humeral tray and a standard humeral bearing, a 25 mm small augment baseplate with a 6.5 mm central screw and superior and inferior locking screws, and a size 40 mm eccentric glenosphere. Trina arrived at [facility] for the above procedure. She was seen in the preoperative holding area and the operative extremity was identified and signed. She was given a preoperative antibiotic, TXA, and an interscalene nerve block. She was taken back to the operating room, laid on table in supine p osition, and put under general anesthesia. She was then put into the beachchair position. The shoulder was then prepped and draped in sterile fashion. A timeout was done and the patient and the operative extremity was properly identified. A deltopectoral approach was used. Dissection was taken down through the fascia and the deltoid was retracted laterally and the conjoined tendon was retracted medially. The anterior shoulder was exposed. The biceps tendon was chronically torn. The subscapularis was then directly released off the lesser tuberosity with a peel technique. The inferior capsule was released and the humeral head was dislocated. A canal finding reamer was sent down the center of the humeral canal. Sequential reaming up to a size 13 reamer was done. Off that reamer, a proximal humeral resection guide was placed. The proximal humerus was resected at 135 of inclination and 25 of retroversion. Osteophytes were then removed and the glenoid was exposed. Time was spent doing a complete capsular and labral release. The glenoid guide was then placed in the inferior aspect of the glenoid. A 3.2 mm Steinmann pin was then placed into the glenoid vault at 10 of inclination. The glenoid baseplate was then reamed. The final size 25 mm small augment baseplate was then impacted in the place. A 6.5 mm central screw was then placed followed by superior and inferior locking screws. A 40 mm eccentric glenosphere was then impacted into place. Surrounding soft tissues were then injected with 100 cc an orthopedic pain control cocktail. The proximal humerus was then exposed. Sequential broaching of the humerus up to a size 13 broach was done. Off that broach a +6 offset humeral tray was trialed. The shoulder was then reduced, brought through a full range of motion, and felt to be stable. The shoulder was then dislocated and the broach was removed. The final size 13 micro press-fit humeral stem was then impacted into place. A standard humeral bearing was then snapped onto a +6 offset humeral tray. The humeral tray was then impacted onto the humeral stem. The shoulder was once again reduced, brought through a full range of motion, and felt to be stable. The subscapularis was then tenodesed back to the lesser tuberosity with transosseous FiberWire sutures and side to side sutures with the arm in 45 of external rotation. A dilute betadyne lavage was then done for 3 minutes. The joint was then irrigated with normal saline solution. Hemostasis was obtained. The interval was closed with 2-0 Vicryl suture. The skin was then closed with 2-0 Vicryl and ting. A Silverlon dressing was placed and the arm was rested in a regular arm sling. She was then extubated and transferred to a hospital bed. She taken to the postanesthesia care unit in stable condition. She tolerated the procedure well. Christian Pritchard PA-C, was present for the entire procedure. He was critical for patient positioning, prepping, draping, retraction exposure, wound closure and application of sterile dressing. I attest to the content of the Intraoperative Record and any orders documented therein. Any exceptions are noted below.
[2022-10-09] MEDS ORDERED: ePHEDrine sulfate 50 MG/ML AMP ONE (12:24)
[2022-10-09] MEDS ORDERED: PROPOFOL IV EMULSION 10 MG/ML 20 ML VIAL IV ONE (12:24)
[2022-10-09] MEDS ORDERED: LIDOCAINE 2% 2 ML VIAL/AMP(20MG/ML) INFIL ONE (12:24)
[2022-10-09] MEDS ORDERED: ONDANSETRON INJ 2 MG/ML 2 ML VIAL IV PRN ×2 (12:45→13:44)
[2022-10-09] MEDS ORDERED: ePHEDrine sulfate 50 MG/ML AMP IV PRN (12:45)
[2022-10-09] MEDS ORDERED: ATROPINE SULFATE 0.1 MG/ML 10ML SYR IV PRN (12:45)
[2022-10-09] MEDS: fentaNYL citrate PF 100 MCG/2 ML VIAL IV PRN ×4 (12:49→13:04)
--- NOTE | 2022-10-09 13:00 | XRay Report ---
XR shoulder LT min 2V routine HISTORY: 86 years-old Female Post shoulder surgery left shoulder arthroplasty COMPARISON: 06/28/2022 TECHNIQUE: 2 views of the left shoulder FINDINGS: Reversed total joint arthroplasty demonstrates satisfactory alignment. Overlying skin ting with ex pected postoperative soft tissue swelling and deep tissue air. No acute fracture or unexpected opaque foreign body identified. Cardiomegaly with mild left basilar atelectasis. IMPRESSION: Reverse total joint arthroplasty with expected postoperative changes. ACT 112: Negative or not required by law. The above report was generated using voice recognition software. It may contain grammatical, syntax o r spelling errors. Electronically signed by: Angel Wetzel M.D. 10/09/2022 12:59 PM
--- NOTE | 2022-10-09 13:21 | Anesthesiology Progress Note ---
Date of Service October 09, 2022 Anesthesia Post Procedure Vital Signs Vital Signs: Temp Pulse Resp BP Pulse Ox O2 Del Method O2 Flow Rate 10/09/22 13:15 86 12 166/71 H 98 Room Air 10/09/22 13:05 74 17 156/68 H 97 Room Air 10/09/22 12:55 74 22 131/105 H 98 Room Air 10/09/22 12:45 80 20 162/68 H 98 Room Air 10/09/22 12:35 81 16 163/72 H 97 Room Air 10/09/22 12:25 75 22 163/80 H 100 Room Air 10/09/22 12:16 96.8 F L 77 16 183/75 H 100 Oxymask 6 10/09/22 10:35 59 L 16 137/70 100 Oxymask 5 10/09/22 09:23 99.0 F 70 20 152/71 H 100 Room Air Pain Intensity Left Shoulder: Pain Intensity: 4 Left Ribs: Pain Intensity: 8 Transfer of Care Handoff Completed per policy Notes Mental Status: alert / awake / arousable and participated in evaluation Patient Amnestic to Procedure: Yes Nausea / Vomiting: adequately controlled Pain: adequately controlled Airway Patency, RR, SpO2: stable & adequate BP & HR: stable & adequate Hydration State: stable & adequate Anesthetic Complications: no major complications apparent and Pt Satisfied with anesthetic care
[2022-10-09] MEDS ORDERED: bisacodyL 10 MG SUPP PR PRN (13:44)
[2022-10-09] MEDS ORDERED: METOCLOPRAMIDE HCL INJ 5 MG/ML 2 ML VIAL IV PRN (13:44)
[2022-10-09] MEDS ORDERED: HYDROmorphone INJ 0.5 MG/0.5 ML SYR IV PRN (13:44)
[2022-10-09] MEDS ORDERED: SODIUM CHLORIDE 0.9% 1000ML 1,000 ML IV SCH (13:44)
[2022-10-09] MEDS ORDERED: NALOXONE HCL 0.4 MG/1 ML VIAL/CARP IV PRN (13:44)
[2022-10-09] MEDS ORDERED: SODIUM CHLORIDE 0.65% NA SOLN 45 ML (OCEAN) PRN (13:44)
[2022-10-09] MEDS: ACETAMINOPHEN 500 MG TAB PO SCH ×2 (14:56→21:19)
[2022-10-09] MEDS: ceFAZolin 2000MG 2,000 MG/15 ML SYR IV SCH (18:16)
[2022-10-09] MEDS: SENNA 8.6 MG TAB PO SCH (21:19)
[2022-10-09] MEDS: DOCUSATE SODIUM 100 MG CAP PO SCH (21:19)
[2022-10-09] MEDS: FAMOTIDINE 20 MG TAB PO SCH (21:25)
[2022-10-09] MEDS: oxyCODONE HCL IR 5 MG TAB (IMMEDIATE RELEASE) PO PRN (21:54)
[2022-10-10] MEDS: ceFAZolin 2000MG 2,000 MG/15 ML SYR IV SCH (02:18)
[2022-10-10] MEDS: oxyCODONE HCL IR 5 MG TAB (IMMEDIATE RELEASE) PO PRN ×4 (04:08→20:29)
[2022-10-10] MEDS: ACETAMINOPHEN 500 MG TAB PO SCH ×3 (05:59→21:46)
--- NOTE | 2022-10-10 06:46 | Orthopedic Progress Note ---
Date of Service October 10, 2022 Assessment & Plan (1) Status post reverse total replacement of left shoulder: Overall she is doing very well. She is not having much pain in the left shoulder. She will be seen by physical therapy today for ambulation and range of motion exercises. She does live alone. She is very concerned that she will be able to do her normal activities of daily living by herself with her left arm in a sling. I think it is reasonable for her to be discharged to rehab facility. She is orthopedically stable for discharge to rehab today. She will follow-up with orthopedics in 2 weeks. Pallavi Mena was seen and examined at bedside this morning. Overall she is doing fairly well. She is not having much pain in the left shoulder. She was able to get some sleep last night. She has no complaints.. Review of Systems All systems reviewed & are unremarkable except as noted in HPI & below. Physical Exam On physical examination of the left shoulder, the dressing is clean and dry. She is wearing her sling as instructed. The nerve block has mostly worn off. She still has some numbness in her thumb.. Results & Data Results & Data Laboratory Results . Diagnostic Findings Postoperative x-rays of the left shoulder show the prosthesis to be in anatomic alignment without any evidence of fracture, dislocation, or loosening. PG Care Time/CCT Total # of Minutes Spent Total Time Spent with Patient: Total time spent is greater than 50% in coordination of care (as documented) at patient's floor/unit and/or counseling patient: Coding Level of Care Code 91349 Post Operative Follow-Up Diagnoses Status post reverse total replacement of left shoulder Z96.612
[2022-10-10] MEDS: MULTIVITAMIN TAB PO SCH (08:35)
[2022-10-10] MEDS: hydroCHLOROthiazide 25 MG TAB PO SCH (08:36)
[2022-10-10] MEDS: DOCUSATE SODIUM 100 MG CAP PO SCH ×2 (08:36→20:31)
[2022-10-10] MEDS: FLUTICASONE PROPIONATE NA SPR 16 GM BTL SCH (08:37)
[2022-10-10] MEDS: FAMOTIDINE 20 MG TAB PO SCH (20:30)
[2022-10-10] MEDS: SENNA 8.6 MG TAB PO SCH (20:31)
[2022-10-10] MEDS: MAGNESIUM HYDROXIDE SUSP 30 ML UDC PO PRN (21:47)
[2022-10-11] MEDS: ACETAMINOPHEN 500 MG TAB PO SCH ×3 (05:02→21:22)
--- NOTE | 2022-10-11 07:04 | Orthopedic Progress Note ---
Date of Service October 11, 2022 Assessment & Plan (1) Status post reverse total replacement of left shoulder: She seems to be doing well with regards to her left shoulder. She is concerned about being discharged to home as she lives alone. Case management is currently working on placement. If she can get placement at a rehab or nursing facility, she can be discharged today. The nurses are also giving her some laxatives to help her have a bowel movement. Pallavi Mena was seen and examined at bedside this morning. Overall she is doing okay with her shoulder. She is not having much pain. She has not had a bowel movement since Sunday. She has no other complaints.. Review of Systems All systems reviewed & are unremarkable except as noted in HPI & below. Physical Exam On physical examination of left shoulder, the dressing is clean and dry. She is wearing her sling as instructed. She has active motion of her hand and wrist.. Results & Data Results & Data Laboratory Results . Diagnostic Findings . PG Care Time/CCT Total # of Minutes Spent Total Time Spent with Patient: Total time spent is greater than 50% in coordination of care (as documented) at patient's floor/unit and/or counseling patient: Coding Level of Care Code 32138 Post Operative Follow-Up Diagnoses Status post reverse total replacement of left shoulder Z96.612
[2022-10-11] MEDS: hydroCHLOROthiazide 25 MG TAB PO SCH (08:23)
[2022-10-11] MEDS: MAGNESIUM HYDROXIDE SUSP 30 ML UDC PO PRN (08:23)
[2022-10-11] MEDS: DOCUSATE SODIUM 100 MG CAP PO SCH ×2 (08:24→20:36)
[2022-10-11] MEDS: FLUTICASONE PROPIONATE NA SPR 16 GM BTL SCH (08:24)
[2022-10-11] MEDS: MULTIVITAMIN TAB PO SCH (08:24)
[2022-10-11] MEDS: oxyCODONE HCL IR 5 MG TAB (IMMEDIATE RELEASE) PO PRN ×2 (11:50→21:22)
[2022-10-11] MEDS: SENNA 8.6 MG TAB PO SCH (20:36)
[2022-10-11] MEDS: FAMOTIDINE 20 MG TAB PO SCH (20:37)
[2022-10-12] MEDS: ACETAMINOPHEN 500 MG TAB PO SCH (05:47)
--- NOTE | 2022-10-12 06:47 | Orthopedic Progress Note ---
Date of Service October 12, 2022 Assessment & Plan (1) Status post reverse total replacement of left shoulder: Overall she is doing very well. She is not having much pain in the left shoulder. She will be seen by physical therapy today for ambulation and range of motion exercises. She can be discharged to a rehab facility later today. She will follow-up with orthopedics in 2 weeks. Pallavi Mena was seen and examined at bedside this morning. Overall she is doing fairly well. She is not having much pain in the left shoulder. She has no complaints.. Review of Systems All systems reviewed & are unremarkable except as noted in HPI & below. Physical Exam On physical examination of left shoulder, the dressing is clean and dry. She is wearing her sling as instructed.. Results & Data Results & Data Laboratory Results . Diagnostic Findings . PG Care Time/CCT Total # of Minutes Spent Total Time Spent with Patient: Total time spent is greater than 50% in coordination of care (as documented) at patient's floor/unit and/or counseling patient: Coding Level of Care Code 89477 Post Operative Follow-Up Diagnoses Status post reverse total replacement of left shoulder Z96.612
--- NOTE | 2022-10-12 06:48 | Discharge Summary ---
Date of Service October 12, 2022 Admission HPI (Per Admitting) Trina is a pleasant 86-year-old female who is been doing with chronic increasing left shoulder pain. 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 After failing conservative treatment, she has elected proceed with a left reverse shoulder arthroplasty.. Admission Exam (Per Admitting) On physical examination left shoulder, he had decreased range of motion. He had crepitus throughout. He has pain of the glenohumeral joint line.. Principal Diagnosis Same as "Discharge Diagnosis" noted below under Discharge Instructions. Discharge Exam On physical examination of left shoulder, the dressing is clean and dry. She is wearing her sling as instructed.. Discharge Data Procedures Performed Operation Date: 10/09/22 10:20 Actual Procedures p Left Total Shoulder Arthroplasty Reverse(Left) - Christian Cuba DO Ordered Studies 10/09/22 05:00 US - OR guided needle placemen Routine Hospital Course (1) Status post reverse total replacement of left shoulder: On October 09, 2022 Trina arrived at [facility] and underwent a left reverse shoulder replacement without complication. She had a general anesthetic and a left interscalene nerve block. Postoperatively she was placed in a sling and transferred to the general orthopedic floors. Her hospital course was uneventful. On postop day #1, her vital signs were stable and her pain was well controlled. She was able to participate well with physical therapy doing ambulation and range of motion exercises. She did not feel safe returning home by herself and case management was working on placement at a rehab or nursing facility. On postop day #2 she continued to do well. She worked well with physical therapy. Her pain was well controlled. We are awaiting bed availability at a nursing facility. On postop day #3 she was doing well. A bed was available at [facility]. She was then discharged. She will follow with orthopedics in 2 weeks. PG Care Time/CCT Total # of Minutes Spent Total Time Spent with Patient: Total time spent is greater than 50% in coordination of care (as documented) at patient's floor/unit and/or counseling patient: Discharge Plan Discharge Items Patient Disposition: Transfer Inpatient Rehab Fac Reason For Visit: DJD Left Shoulder Discharge Diagnosis: Left reverse shoulder replacement Activity: Per Instructions section Non-emergency contact: Surgeon Call non-emergency contact if: your wound has increased redness and your wound has increased drainage Follow-up/Referrals: Christian Haines, [Primary Care Provider] - Diet: Regular Addtl Attending Provider Instructions: Activity and Therapy Recommendations: * If you are using [facility] then therapy will be provided at your home until they feel you have accomplished all of your goals. * If you are using [facility] then Physical Therapy will be provided until they feel you are ready to start Outpatient Physical Therapy. * If you are not using home therapy then Outpatient Physical Therapy should start about 3-5 days from your day of surgery. Therapy will last about 8-12 weeks * Wear your sling for 3 weeks, unless otherwise instructed. You may remove your sling to shower and to dress, but otherwise, you should be in your sling at all times, including while sleeping * The shoulder replacement is very stable and you can use your hand while in the sling * You were shown a series of exercises in the hospital. Do these exercises daily including the exercises you were shown in physical therapy. Medications: * Narcotic You will likely be sent home from the hospital with a prescription for the narcotic pain medication that worked best throughout your stay. * Other medications may be prescribed for specific circumstances. If you have any questions, please call the office at . * Resume previous home medications unless otherwise instructed Dressing Care: Leave the Silverlon dressing in place for 7 days. After 7 days you may remove the dressing. If the incision is not draining then you may leave the ting open to air. If there is a little bit of drainage or if the ting are getting stuck on your clothing then cover the incision with a dry dressing. The ting will be removed at your 2 week follow-up appointment. Showering: You may shower with the Silverlon dressing in place. Do not let the shower spray hit the dressing directly. Pat the Silverlon dressing dry. If the dressing becomes wet underneath, then simply remove the dressing. Keep the incision dry until you are 7 days out from the day of surgery. After 7 days you may remove the Silverlon dressing and shower with the ting exposed. Let soapy water run over the ting and pat them dry. Do not scrub or soak the incision. Things To Watch For: * Drainage from the incision site that occurs more than one week after your surgery. * Increased redness at the incision site. * Fever above 102 degrees Fahrenheit. * Unusual chest pain or shortness of breath. * Call [facility] at with any of the above problems Follow-Up Visit: Follow-up with Dr. Cuba's PA (Christian Pritchard) 2-3 weeks after your day of surgery. He will remove your ting and answer any questions. If you have any additional questions or concerns, Dr Cuba is usually in the office at the same time and will be available An appointment was probably scheduled when you signed-up for surgery in the office. If you have any questions call More detailed instructions as well as Frequently Asked Questions were provided in a folder by our office when you signed-up for surgery. Please review these instructions when you get home. If you have any further questions or concerns, please feel free to call the office at [phone] Pending Studies at Discharge: No Stand-Alone Forms: [facility]SINS, Smoking Cessation Skilled Items Patient informed of condition?: Yes DNR: No Discharge Level of Care: Acute rehab Communicable Disease: No Discharge Prognosis: Improving Lines: None Urinary Catheter: No Medications and DC Order Prescriptions: New tramadol 50 mg tablet 50 mg PO Q6H PRN (Reason: pain) Qty: 30 0RF Continued cyanocobalamin (vitamin B-12) 1,000 mcg tablet 500 mcg PO .every other day Patient Comments: 1,000 mcg PO EVERY OTHER DAY; Rx Instructions: 1,000 mcg PO EVERY OTHER DAY; hydrochlorothiazide 25 mg tablet 25 mg PO QAM Qty: 90 3RF lactulose 20 gram/30 mL solution 20 g PO BID PRN (Reason: constipation) Qty: 1500 0RF Rx Instructions: Please take until regular bowel movements occur mupirocin 2 % ointment 1 applic topical BID PRN (Reason: epistaxis ) Qty: 15 3RF Rx Instructions: Apply small amount to the rim of the nostril BID x PRN nasal dryness and/or epistaxis polyethylene glycol 3350 [Miralax] 17 gram/dose powder 17 g PO QPM Cosamin ASU (with AKBA) 500 mg-116.7 mg-133.3 mg capsule 2 cap PO QAM Saline Nasal 0.65 % aerosol,spray 1 spray intranasal ONCE PRN (Reason: Congestion) simethicone [Anti-Gas Ultra Strength] 180 mg capsule 180 mg PO BID PRN (Reason: gas relief) ncvtvzj-crkq-apabz-oreg-capryl 100 mg-150 mg- 50 mg-150 mg capsule 1,600 cap PO QAM Systane Balance 0.6 % drops 1 drp ophthalmic (eye) BID PRN (Reason: Dry Eyes) diclofenac sodium [Aspercreme Arthritis Pain] 1 % gel 2 g topical QID Rx Instructions: apply to single elbow, wrist or hand; for hand includes palm/fingers/back of hand celecoxib [Celebrex] 200 mg capsule 200 mg PO DAILY acetaminophen 650 mg tablet extended release 1,300 mg PO BID biotin 5 mg capsule 5 mg PO QAM cholecalciferol (vitamin D3) 2,000 unit tablet 2,000 units PO QAM fluticasone propionate 50 mcg/actuation Carefree,Suspension See Rx Instructions .ROUTE .COMPLEX Rx Instructions: 1 spray to each nostril daily multivitamin [Daily Multivitamin] Tablet 1 tab PO QAM diclofenac sodium [Voltaren] 1 % Gel 2 g TOPICAL QID Rx Instructions: apply to single elbow, wrist or hand; for hand includes palm/fingers/back of hand lidocaine HCl [Aspercreme (lidocaine HCl)] 4 % Cream 1 applic topical BID PRN (Reason: pain) Citrucel 500 mg Tablet 500 mg PO BID famotidine 20 mg tablet 20 mg PO HS Discharge Orders: Discharge Order (Routine); Ordered 10/11/22 Ordered By: Christian Cuba Admission Data Admit Date/Time: 10/09/22 12:14 Attending Provider: Christian Cuba Admit Provider: Christian Cuba Primary Care Provider: Christian Haines Other Providers: [facility] ; Nik Murphy [facility]
[2022-10-12] MEDS: MAGNESIUM HYDROXIDE SUSP 30 ML UDC PO PRN (07:35)
[2022-10-12] MEDS: FLUTICASONE PROPIONATE NA SPR 16 GM BTL SCH (07:35)
[2022-10-12] MEDS: DOCUSATE SODIUM 100 MG CAP PO SCH (07:36)
[2022-10-12] MEDS: hydroCHLOROthiazide 25 MG TAB PO SCH (07:36)
[2022-10-12] MEDS: MULTIVITAMIN TAB PO SCH (07:36)
== END 2022-10-12 09:15 ==
LOC: 3W 08:36 → ASU 08:36

== ENCOUNTER 2023-11-12 09:11 | Inpatient (IN) ==
--- NOTE | 2023-10-15 11:13 | PAT Medication Instructions ---
Medication Instructions Date of Service October 15, 2023 Home Medications Medication Instructions Recorded mupirocin 2 % topical ointment 1 applic topical BID PRN epistaxis 07/18/22 #15 grams hydrochlorothiazide 25 mg tablet 25 mg PO QAM #90 tabs 06/19/23 tramadol 50 mg tablet 50 mg PO Q8H PRN pain #30 tabs 08/21/23 amoxicillin 500 mg tablet 2,000 mg (4 x 500 mg) PO ONCE #4 09/13/23 tabs Medication List: acetaminophen 650 mg tablet,extended release 1,300 mg PO BID cholecalciferol (vitamin D3) 50 mcg (2,000 unit) tablet 2,000 units PO QAM mupirocin 2 % topical ointment 1 applic topical BID PRN epistaxis simethicone 180 mg capsule (Anti-Gas Ultra Strength) 180 mg PO BID PRN gas relief sodium chloride 0.65 % nasal spray aerosol (Saline Nasal) 1 spray intranasal ONCE PRN Congestion lidocaine HCl 4 % topical cream (Aspercreme (lidocaine HCl)) 1 applic topical BID PRN pain multivitamin 1 tab PO QAM glucosamine 500 mg-chondroitin 116.7 mg-herbal no.270 133.3 mg capsule 3 cap PO QAM omega-3 fatty acids 1,250 mg capsule 2,500 mg PO QAM hydrochlorothiazide 25 mg tablet 25 mg PO QAM tramadol 50 mg tablet 50 mg PO Q8H PRN pain azelastine 137 mcg (0.1 %) nasal spray aerosol 1 spray intranasal QAM biotin 300 mcg tablet 300 mcg PO QAM cyanocobalamin (vitamin B-12) 1,000 mcg tablet (Vitamin B-12) 1,000 mcg PO Q2D methylcellulose (with sugar) oral powder (Citrucel (sucrose) oral powder) 1 tbsp PO HS naproxen sodium 220 mg tablet 220 mg PO QAM olopatadine 0.7 % eye drops (Pataday Once Daily Relief) 1 drp ophthalmic (eye) QAM PRN dry, itchy eyes turmeric 125 mg-young root 6 mg-black pepper 50 mcg chewable tablet 1 tab PO TID methylcellulose (laxative) 500 mg tablet (Citrucel) 500 mg PO BID amoxicillin 500 mg tablet 2,000 mg (4 x 500 mg) PO ONCE MEDICATION INSTRUCTIONS: Continue as directed amoxicillin 500 mg tablet 2,000 mg (4 x 500 mg) PO ONCE olopatadine 0.7 % eye drops (Pataday Once Daily Relief) 1 drp ophthalmic (eye) QAM PRN dry, itchy eyes sodium chloride 0.65 % nasal spray aerosol (Saline Nasal) 1 spray intranasal ONCE PRN Congestion lidocaine HCl 4 % topical cream (Aspercreme (lidocaine HCl)) 1 applic topical BID PRN pain (do not apply near surgical area after bathing prior to surgery) azelastine 137 mcg (0.1 %) nasal spray aerosol 1 spray intranasal QAM mupirocin 2 % topical ointment 1 applic topical BID PRN epistaxis ASK your surgeon for instructions naproxen sodium 220 mg tablet 220 mg PO QAM STOP taking 2 weeks before surgery glucosamine 500 mg-chondroitin 116.7 mg-herbal no.270 133.3 mg capsule 3 cap PO QAM omega-3 fatty acids 1,250 mg capsule 2,500 mg PO QAM biotin 300 mcg tablet 300 mcg PO QAM turmeric 125 mg-young root 6 mg-black pepper 50 mcg chewable tablet 1 tab PO TID DO NOT take the morning of surgery hydrochlorothiazide 25 mg tablet 25 mg PO QAM cholecalciferol (vitamin D3) 50 mcg (2,000 unit) tablet 2,000 units PO QAM multivitamin 1 tab PO QAM methylcellulose (laxative) 500 mg tablet (Citrucel) 500 mg PO BID simethicone 180 mg capsule (Anti-Gas Ultra Strength) 180 mg PO BID PRN gas relief cyanocobalamin (vitamin B-12) 1,000 mcg tablet (Vitamin B-12) 1,000 mcg PO Q2D Take morning of surgery With a small sip of water, OTHERWISE NOTHING TO EAT OR DRINK AFTER MIDNIGHT: acetaminophen 650 mg tablet,extended release 1,300 mg PO BID tramadol 50 mg tablet 50 mg PO Q8H PRN pain Take evening before surgery acetaminophen 650 mg tablet,extended release 1,300 mg PO BID methylcellulose (with sugar) oral powder (Citrucel (sucrose) oral powder) 1 tbsp PO HS methylcellulose (laxative) 500 mg tablet (Citrucel) 500 mg PO BID simethicone 180 mg capsule (Anti-Gas Ultra Strength) 180 mg PO BID PRN gas relief tramadol 50 mg tablet 50 mg PO Q8H PRN pain Other Notes If you have any questions please call us at [phone] or [phone] or [phone] or [phone]
--- NOTE | 2023-10-17 12:54 | Anesthesiology Consultation ---
Date of Service October 17, 2023 Assessment & Plan (1) Encounter for pre-operative examination: - Outpatient joint assessment: Pt currently scheduled for inpatient pathway. If surgeon requests review for outpatient joint pathway, patient is not recommended candidate for outpatient joint program from anesthesia standpoint based on available information. - Cardiology visit (10/03/22): "Patient is an 86-year-old female with a past medical history significant for fibromyalgia, osteoarthritis, hypertension, hypercholesterolemia, lymphedema, GEREMIAS, and CLL who presents for preoperative cardiovascular evaluation prior to left shoulder replacement on 10/09/[address] Cuba. She is currently stable and asymptomatic from a cardiovascular standpoint with no anginal symptoms. She has chronic lower extremity edema but does not appear hypervolemic intravascularly. Echo in January 2022 showed normal LV systolic function with aortic valve sclerosis and only mild MR. Recent ECG shows normal sinus rhythm with no acute ST-T wave abnormality. Her blood pres sure is well controlled. Given this information, patient is at an acceptable risk to proceed with upcoming surgery without any additional cardiovascular testing or intervention." > Patient had Left reverse TSA (10/09/22): LMA#4 + regional at [facility]. Subsequent left cataracts surgeries at [facility] 08/2023 + 09/2023. - Patient has routine visit with PCP that falls prior to surgery- Awaiting upcoming PCP office visit note ([facility], appt 11/01). Patient otherwise acceptable risk for surgery. Chart Review Chart Review: Patient seen in Pre Admission Testing Teaching & Discussion Pre-Anesthesia Teaching/Discussion Notes: Instructed NPO after midnight before surgery,except medications with 15 cc of water. Medication instructions provided according to the PAT guidelines. History Surgery Operation Date: 11/12/23 10:15 Proposed Procedures p Right Reverse Total Shoulder Arthroplasty - Christian Cuba, Height/Weight Height: 5 ft 1 in Weight: 90.718 kg Allergies Allergy/AdvReac Type Severity Reaction Status Date / Time mold Allergy Intermediate Congestion Verified 10/16/23 14:21 adhesive Allergy Mild Rash Verified 10/16/23 14:21 dexamethasone Allergy Mild Swelling Verified 10/16/23 14:21 prednisone Allergy Mild Swelling Verified 10/16/23 14:21 guaifenesin [From Mucinex] Allergy Unknown Unknown Verified 10/12/23 14:33 NSAIDS (Non-Steroidal AdvReac Intermediate Breakthrough Verified 10/16/23 14:21 Anti-Inflamma bleeding, anemia, "burning off the abdomen" calcitriol AdvReac Mild Headache Verified 10/16/23 14:21 celecoxib [From Celebrex] AdvReac Mild decreased Verified 10/12/23 14:33 urine flow duloxetine AdvReac Mild "Over Verified 10/16/23 14:21 eating" pantoprazole AdvReac Mild Digestive Verified 10/16/23 14:21 issues pregabalin [From Lyrica] AdvReac Mild Confusion Verified 10/12/23 14:33 diclofenac AdvReac Unknown Unknown Verified 10/12/23 14:33 Medications Home Medications Medication Instructions Recorded Confirmed Last Taken acetaminophen 650 mg 1,300 mg PO BID 02/06/19 10/12/23 09/12/23 06:00 tablet,extended release cholecalciferol (vitamin D3) 50 2,000 units PO QAM 02/06/19 10/12/23 09/11/23 mcg (2,000 unit) tablet mupirocin 2 % topical ointment 1 applic topical BID PRN epistaxis 07/18/22 10/12/23 10/07/22 #15 grams simethicone 180 mg capsule 180 mg PO BID PRN gas relief 08/03/22 10/12/23 2 Days Ago (Anti-Gas Ultra Strength) ~10/07/22 sodium chloride 0.65 % nasal spray 1 spray intranasal ONCE PRN 08/03/22 10/12/23 10/09/22 06:00 aerosol (Saline Nasal) Congestion lidocaine HCl 4 % topical cream 1 applic topical BID PRN pain 09/25/22 10/12/23 09/11/23 (Aspercreme (lidocaine HCl)) multivitamin 1 tab PO QAM 09/25/22 10/12/23 09/11/23 glucosamine 500 mg-chondroitin 3 cap PO QAM 02/27/23 10/12/23 09/11/23 116.7 mg-herbal no.270 133.3 mg capsule omega-3 fatty acids 1,250 mg 2,500 mg PO QAM 02/27/23 10/12/23 09/11/23 capsule hydrochlorothiazide 25 mg tablet 25 mg PO QAM #90 tabs 06/19/23 10/12/23 09/11/23 tramadol 50 mg tablet 50 mg PO Q8H PRN pain #30 tabs 08/21/23 10/12/23 Unknown azelastine 137 mcg (0.1 %) nasal 1 spray intranasal QAM 08/22/23 10/12/23 09/11/23 spray aerosol biotin 300 mcg tablet 300 mcg PO QAM 08/22/23 10/12/23 09/11/23 cyanocobalamin (vitamin B-12) 1,000 mcg PO Q2D 08/22/23 10/12/23 09/11/23 1,000 mcg tablet (Vitamin B-12) methylcellulose (with sugar) oral 1 tbsp PO HS 08/22/23 10/12/23 09/11/23 powder (Citrucel (sucrose) oral powder) naproxen sodium 220 mg tablet 220 mg PO QAM 08/22/23 10/12/23 09/11/23 olopatadine 0.7 % eye drops 1 drp ophthalmic (eye) QAM PRN 08/22/23 10/12/23 09/11/23 (Pataday Once Daily Relief) dry, itchy eyes turmeric 125 mg-young root 6 1 tab PO TID 08/22/23 10/12/23 09/11/23 mg-black pepper 50 mcg chewable tablet methylcellulose (laxative) 500 mg 500 mg PO BID 09/11/23 10/12/23 09/11/23 tablet (Citrucel) amoxicillin 500 mg tablet 2,000 mg (4 x 500 mg) PO ONCE #4 09/13/23 10/12/23 Unknown tabs Past Medical History Medical History Anxiety Atrial flutter Follows with [facility] Bilateral sensorineural hearing loss No hearing aids Bilateral tinnitus Cervical radiculopathy Cervical spinal stenosis Chronic lymphocytic leukemia Follows with Dr. Jonathon Alvarenga at this time per patient Cyst of right kidney CT 04/2022 stable Deviated nasal septum Fibromyalgia Followed by Rheumatology Gait disorder R/t arthritis/LE neuropathy/chronic low back pain Uses wheeled walker Hammer toes of both feet Uses orthotics Hypercholesterolemia Hypertension IBS (irritable bowel syndrome) LPRD (laryngopharyngeal reflux disease) Lymphedema Legs Obstructive sleep apnea CPAP (compliant) Osteoarthritis, generalized Osteoporosis Peripheral neuropathy Premature ventricular contractions Follows with [facility] cardiology Rotator cuff arthropathy of both shoulders Decreased ROM of bilateral shoulder Scoliosis Secondary hyperparathyroidism Spinal stenosis Statin intolerance Tremor 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) Under observation, no meds at this time Urinary incontinence Chronic Exercise / Class Metabolic Activity III < 4 Walking/Shop/Light housework Past Family History Family History Sister Breast cancer Father Congestive heart failure Mother Coronary heart disease Hypertension Family/Other Cancer Uncle Kidney malignancy Brother Prostate cancer Grandfather Prostate cancer Other Hx of breast cancer No family history of adverse response to anesthesia Denies family history of Colon cancer Ovarian cancer Myocardial infarction Colorectal cancer Past Surgical History Surgical History H/O colonoscopy H/O esophagogastroduodenoscopy Hx of left cataract extraction 08/2023, [facility] Removal of retained lens fragment left eye 09/2023, [facility] Hx of right cataract extraction Right cataracts extraction IOL (06/21/22): MAC at [facility] S/P cholecystectomy S/P dilation and curettage S/P ovarian cystectomy S/P tonsillectomy and adenoidectomy Status post reverse total replacement of left shoulder Left reverse TSA (10/09/22): LMA#4 + regional at [facility] Past Anesthesia History No Hx of Anesthesia Complications and No Family Hx of Anesthesia Complications History of PONV No Hx of PONV and No Hx of Motion Sickness Social History Smoking Status: Never smoker Do You Dip or Chew Tobacco: No Hx Alcohol Use: No Hx Substance Use: No substance use type: does not use Review of Systems Patient denies chest pain, shortness of breath, fever, chills, cough, wheezing, palpitations. Physical Exam Vital Signs BP 109/69 P 62 TEMP 98.1 SP02 98%RA RESP 18 Physical Mildly decreased cervical extension range of motion. Full TMJ range of motion. TMD 3 finger breaths Mallampati Score 3 Dentition: missing sides/molars, + crowns Lungs: clear throughout to auscultation, distant heart sounds Cardiac: regular rate and rhythm, I-II/ systolic murmur Spine: normal Carotid arteries: negative bruit Extremities: non-pitting LE edema Lab Results Anesthesia Preop Results Results Anesthesia Widget: WBC 12.43 K/ul (4.8-10.8) H 10/17/23 Hgb 12.1 g/dl (12.0-16.0) 10/17/23 Hct 35.3 % (37.0-47.0) L 10/17/23 Plt 180 K/uL (130-400) 10/17/23 Na 134 mmol/L (136-145) L 10/17/23 K 4.0 mmol/L (3.5-5.1) 10/17/23 Cl 99 mmol/L (98-107) 10/17/23 CO2 29 mmol/L (21-32) 10/17/23 BUN 24 mg/dl (6-23) H 10/17/23 Creat 0.39 mg/dl (0.6-1.2) L 10/17/23 Glucose Level 90 mg/dl (70-99(Fasting)) 10/17/23 PT 10.7 Seconds (9.0-12.0) 10/17/23 PTT 27 Seconds (21-31) 10/17/23 INR 1.0 (0.9-1.1) 10/17/23 Blood Type O Positive 10/17/23 Antibody Screen NEGATIVE 10/17/23 Testing Electrocardiogram Date: 10/17/23 NSR at 61bpm. LAD. iRBBB. No significant change compared to 09/14/2022 per community health planning director comparison. Chest X-Ray Date: 10/18/23 FINDINGS: Left reverse shoulder arthroplasty is seen. The cardiomediastinal silhouette is normal. The lungs are clear. No evidence of pleural effusion or pneumothorax. IMPRESSION: No acute chest disease. Echocardiogram Date: 01/02/22 EF: 60-65% LV Function: normal RWMA: + none Other Findings: + LVH (mild/concentric ) and + diastolic dysfunction (Grade I ) Mild RV dilation with normal systolic function Mild biatrial dilation Sclerotic AV without significant stenosis Mild MR. Normal estimated RVSP Other Testing Cervical spine x-ray Date: 07/03/23 FINDINGS: The mineralized appearance of the bones. Multilevel intervertebral disc space narrowing, [id number] at C4-C5 and moderate to severe at C5-C6. 2 mm anterolisthesis C4 on C5 is unchanged and likely secondary to chronic facet arthrosis. There is mostly moderate multilevel facet arthrosis with mild to mod erate spondylitic spurring. No acute fracture, subluxation or endplate erosion. No prevertebral edema. Shoulder arthroplasty. Mostly mild multilevel neural foraminal narrowing. There is moderate right-sided foraminal stenosis at C4-C5. IMPRESSION: No acute fracture or subluxation. Multilevel degenerative changes of the cervical spine have not significantly changed compared to the 07/29/2018 exam.
[~2023-11-12 09:11] MED LIST changes: -ACETAMINOPHEN 500 MG TAB PO SCH; -FAMOTIDINE 20 MG TAB PO SCH; -GABAPENTIN 300 MG CAP PO SCH; -LR 15ML/HR IV SCH; -LR 60ML/HR IV SCH; -ORTHO JOINT MIX INFIL SCH; -TRANEXAMIC ACID 1,000 MG **IV Intra-op IV SCH; -TRANEXAMIC ACID 1,000 MG **IV Pre-op IV SCH; -ceFAZolin 2000MG 2,000 MG/15 ML SYR IV SCH; -dexAMETHasone 4 MG TAB PO SCH
--- NOTE | 2023-11-12 10:07 | History & Physical Bridge Note ---
Date of Service November 12, 2023 History & Physical Bridge Note I have examined the patient, reviewed the History & Physical and in the interval since the performance of the History & Physical I have noted the following changes of clinical significance: no changes noted
[2023-11-12] MEDS ORDERED: fentaNYL citrate PF 100 MCG/2 ML VIAL ONE (10:09)
[2023-11-12] MEDS ORDERED: ONDANSETRON INJ 2 MG/ML 2 ML VIAL ONE (10:09)
[2023-11-12] MEDS ORDERED: PROPOFOL IV EMULSION 10 MG/ML 20 ML VIAL IV ONE (10:09)
[2023-11-12] MEDS: LR 15ML/HR IV SCH (10:10)
[2023-11-12] MEDS: LR 60ML/HR IV SCH (10:12)
[2023-11-12] MEDS: GABAPENTIN 300 MG CAP PO SCH (10:12)
[2023-11-12] MEDS: ACETAMINOPHEN 500 MG TAB PO SCH ×3 (10:12→15:45)
[2023-11-12] MEDS: FAMOTIDINE 20 MG TAB PO SCH (10:13)
[2023-11-12] MEDS: dexAMETHasone**PF** 10 MG/ML VIAL IV SCH (10:24)
[2023-11-12] MEDS: TRANEXAMIC ACID 1,000 MG **IV Pre-op IV SCH (11:13)
[2023-11-12] MEDS: ceFAZolin 2000MG 2,000 MG/15 ML SYR IV SCH ×2 (11:21→22:46)
[2023-11-12] MEDS: ORTHO JOINT ANESTHETIC ONE (11:58)
[2023-11-12] MEDS: ROPIV 0.5% 246mg, Ketorolac 30mg, EPINEPHrine 0.5mg in NSS INFIL SCH (12:21)
[2023-11-12] MEDS: TRANEXAMIC ACID 1,000 MG **IV Intra-op IV SCH (12:23)
--- NOTE | 2023-11-12 12:25 | Operative Report ---
[facility] Post Operative Report Pre & Post Diagnosis Operation Date: 11/12/23 11:00 Pre-Op Diagnosis: Cuff tear arthropathy of the right shoulder Post-Op Diagnosis: Cuff tear arthropathy of the right shoulder I identified the patient and participated in the time-out.: Yes Procedure Operation Date: 11/12/23 11:00 Actual Procedures p Right Reverse Total Shoulder Arthroplasty(Right) - Christian Cuba DO Surgeon Christian Cuba DO Property Maintenance Supervisor Christian Pritchard PA-C Estimated Blood Loss 150 Findings Consistent with Post-Op Diagnosis Specimens Right humeral head Description of Procedure Implants used: I used a [employer]omet Comprehensive reverse total shoulder arthroplasty system with a size 12 press fit micro humeral stem, a +5 thickness standard humeral tray and a +3 retentive humeral bearing, a 25 mm large augment baseplate with a 6.5 mm central screw and superior, posterior and inferior locking screws, and a size 40 mm eccentric glenosphere. Trina arrived at [facility] for the above procedure. She was seen in the preoperative holding area and the operative extremity was identified and signed. She was given a preoperative antibiotic, TXA, and an interscalene nerve block. She was taken back to the operating room, laid on table in supine position, and put under general anesthesia. She was then put into the beachchair position. The shoulder was then prepped and draped in sterile fashion. A timeout was done and the patient and the operative extremity was properly identified. A deltopectoral approach was used. Dissection was taken down through the fascia and the deltoid was retracted laterally and the conjoined tendon was retracted medially. The anterior shoulder was exposed. The biceps tendon was chronically torn. The subscapularis was then directly released off the lesser tuberosity with a peel technique. The inferior capsule was released and the humeral head was dislocated. A canal finding reamer was sent down the center of the humeral canal. Sequential reaming up to a size 12 reamer was done. Off that reamer, a proximal humeral resection guide was placed. The proximal humerus was resected at 135 of inclination and 25 of retroversion. Osteophytes were then removed and the glenoid was exposed. Time was spent doing a complete capsular and labral release. A [employer] Signature One guide was then attached onto the anterior rim of the glenoid. A 3.2 mm Steinmann pin was then placed in the reverse total shoulder arthroplasty hole. The glenoid baseplate was then reamed. The final size 25 mm large augment baseplate was then impacted in the place. A 6.5 mm central screw was then placed followed by superior, posterior and inferior locking screws. A 40 mm e ccentric glenosphere was then impacted into place. Surrounding soft tissues were then injected with 100 cc an orthopedic pain control cocktail. The proximal humerus was then exposed. Sequential broaching of the humerus up to a size 9 broach was done. Off that broach a +5 standard thickness with a +3 retentive humeral tray was trialed. The shoulder was then reduced, brought through a full range of motion, and felt to be stable. The shoulder was then dislocated and the broach was removed. The final size 12 micro press-fit humeral stem was then impacted into place. A +3 retentive humeral bearing was then snapped onto a +5 thickness standard humeral tray. The humeral tray was then impacted onto the humeral stem. The shoulder was once again reduced, brought through a full range of motion, and felt to be stable. The subscapularis was poor quality and retracted. The subscapularis was unable to be repaired. A dilute betadyne lavage was then done for 3 minutes. The joint was then irrigated with normal saline solution. Hemostasis was obtained. The interval was closed with 2-0 Vicryl suture. The skin was then closed with 2-0 Vicryl and ting. A Silverlon dressing was placed and the arm was rested in a regular arm sling. She was then extubated and transferred to a hospital bed. She taken to the postanesthesia care unit in stable condition. She tolerated the procedure well. Christian Pritchard PA-C, was present for the entire procedure. He was critical for patient positioning, prepping, draping, retraction exposure, wound closure and application of sterile dressing. I attest to the content of the Intraoperative Record and any orders documented therein. Any exceptions are noted below.
[2023-11-12] MEDS ORDERED: ePHEDrine sulfate 50 MG/ML AMP IV PRN (12:55)
[2023-11-12] MEDS ORDERED: ONDANSETRON INJ 2 MG/ML 2 ML VIAL IV PRN ×2 (12:55→13:54)
[2023-11-12] MEDS ORDERED: ATROPINE SULFATE 0.1 MG/ML 10ML SYR IV PRN (12:55)
[2023-11-12] MEDS: fentaNYL citrate PF 100 MCG/2 ML VIAL IV PRN (13:00)
--- NOTE | 2023-11-12 13:36 | Anesthesiology Progress Note ---
Date of Service November 12, 2023 Anesthesia Post Procedure Vital Signs Vital Signs: Temp Pulse Pulse Resp BP BP Pulse Ox 11/12/23 13:30 97.2 F L 68 16 150/70 H 97 11/12/23 13:20 72 18 154/64 H 94 11/12/23 13:10 72 16 152/74 H 92 11/12/23 13:00 70 15 153/70 H 100 11/12/23 12:50 71 23 174/93 H 100 11/12/23 12:42 97.5 F L 72 10 L 173/82 H 100 11/12/23 09:54 11/12/23 09:54 98.2 F 70 18 122/53 L 100 O2 Del Method O2 Flow Rate 11/12/23 13:30 Room Air 11/12/23 13:20 Room Air 11/12/23 13:10 Room Air 11/12/23 13:00 Oxymask 4 11/12/23 12:50 Oxymask 6 11/12/23 12:42 Oxymask 10 11/12/23 09:54 Room Air, CPAP 11/12/23 09:54 Room Air, CPAP Pain Intensity Bilateral Shoulder: Pain Intensity: 5 Lower Back: Pain Intensity: 4 Transfer of Care Handoff Completed per policy Notes Mental Status: alert / awake / arousable and participated in evaluation Patient Amnestic to Procedure: Yes Nausea / Vomiting: adequately controlled Pain: adequately controlled Airway Patency, RR, SpO2: stable & adequate BP & HR: stable & adequate Hydration State: stable & adequate Anesthetic Complications: no major complications apparent and Pt Satisfied with anesthetic care
[2023-11-12] MEDS ORDERED: bisacodyL 10 MG SUPP PR PRN (13:54)
[2023-11-12] MEDS ORDERED: METOCLOPRAMIDE HCL INJ 5 MG/ML 2 ML VIAL IV PRN ×2 (13:54→15:37)
[2023-11-12] MEDS ORDERED: oxyCODONE HCL IR 5 MG TAB (IMMEDIATE RELEASE) PO PRN ×2 (13:54→15:35)
[2023-11-12] MEDS ORDERED: SODIUM CHLORIDE 0.65% NA SOLN 45 ML (OCEAN) PRN (13:54)
[2023-11-12] MEDS ORDERED: MAGNESIUM HYDROXIDE SUSP 30 ML UDC PO PRN (13:54)
[2023-11-12] MEDS ORDERED: MUPIROCIN 2% OINT 22 GM TUBE TOP PRN (13:54)
[2023-11-12] MEDS ORDERED: NALOXONE HCL 0.4 MG/1 ML VIAL/CARP IV PRN (13:54)
[2023-11-12] MEDS ORDERED: HYDROmorphone INJ 0.5 MG/0.5 ML SYR IV PRN ×2 (13:54→15:16)
[2023-11-12] MEDS: fentaNYL citrate PF 100 MCG/2 ML VIAL ONE (13:56)
[2023-11-12] MEDS: SODIUM CHLORIDE 0.9% 1,000 ML IV SCH (14:38)
[2023-11-12] MEDS: KETOROLAC TROMETHAMINE 15 MG/ML VIAL IV SCH (15:46)
--- NOTE | 2023-11-12 17:00 | XRay Report ---
XR shoulder RT min 2V routine CLINICAL HISTORY: Post shoulder surgery TECHNIQUE: 3 views of the right shoulder were obtained. Comparison: Comparison is made to chest radiograph 10/17/2023 FINDINGS: Patient is status post shoulder arthroplasty with expected postsurgical changes including soft tissue swelling and subcutaneous emphysema. No periarticular lucency or hardware fracture is seen. IMPRESSION: Expected postoperative appearance status post placement of shoulder arthroplasty. ACT 112: Negative or not required by law. Electronically signed by: Goldy Post M.D. 11/12/2023 4:59 PM
[2023-11-12] MEDS ORDERED: ceFAZolin 2000MG 2,000 MG/15 ML SYR IV SCH (19:30)
[2023-11-12] MEDS: DOCUSATE SODIUM 100 MG CAP PO SCH (19:57)
[2023-11-12] MEDS: SENNA 8.6 MG TAB PO SCH (19:58)
[2023-11-12] MEDS ORDERED: DOCUSATE SODIUM 100 MG CAP PO SCH (21:00)
[2023-11-12] MEDS ORDERED: SENNA 8.6 MG TAB PO SCH (21:00)
[2023-11-13] MEDS: MULTIVITAMIN TAB PO SCH (07:55)
[2023-11-13] MEDS: AZELASTINE HCL 0.1% NASAL 200 SPRAYS/27,400 MCG BTL SCH (07:56)
[2023-11-13] MEDS: hydroCHLOROthiazide 25 MG TAB PO SCH (07:57)
--- NOTE | 2023-11-13 08:55 | Orthopedic Progress Note ---
Date of Service November 13, 2023 Assessment & Plan (1) Rotator cuff arthropathy of right shoulder: (2) Status post reverse total replacement of right shoulder: Plan 87-year-old woman POD# 1 s/p right reverse total shoulder replacement, doing well overall. Pain to the shoulder is well-controlled. Some residual numbness is noted secondary to the nerve block. Medically stable. Postoperative radiographs are well-appearing; hardware intact and well-positioned. Patient is neurologically intact. Plan: 1. DVT prophylaxis w/ early ambulation. Encourage elbow, wrist, digit AROM. 2. PT/OT as tolerated. Sling on at all times, including while sleeping, but may come off to shower and dress. 3. Pain control doing well with current pain regimen. 4. Disposition - pending full PT/OT evals, but seems they are recommending a rehab facility. 5. F/u 2-3 weeks post-op w/ orthopedics (Dr. Cuba's team), or as previously scheduled, for first post-op visit. Admission and Anticipated Discharge Date Admission Date: November 12, 2023 Subjective Patient is POD# 1 s/p right reverse total shoulder arthroplasty by Dr. Cuba on 11/12/2019. Patient says her pain relative to the right shoulder is well- controlled this morning. She mentions pain in multiple other joints and areas of her body, but she has had these for years, and she says she has known "po lyosteoarthritis" and it runs in the family. Denies CP, SOB, N/V. She does still have some numbness to her right forearm/hand/digits, and understands this is likely due to the nerve block continuing to wear off. She is hoping to go to [facility] for postop therapy. Physical Exam Physical Exam: GENERAL: AA&Ox3, NAD. Pleasant, affect is calm. Lying in bed and appears comfortable. Sling donned to RUE, well-fitting. RESPIRATORY: Normal respiratory effort with no signs of distress. CHEST/AXILLA: Chest movement symmetrical. No deformities noted. CARDIOVASCULAR: No edema noted. SKIN: [place], warm and dry. MS/EXTREMITY: Shoulder Silverlon dressing c/d/i. + wrist/elbow AROM. Median/Ulnar/Radial nerve distributions intact to sensory/motor. Radial pulse intact, 2+. Results & Data Vital Signs (Past 12 Hours) Vital Signs Temp Pulse Resp BP Pulse Ox O2 Del Method 11/13/23 07:30 36.7 C 60 16 91/56 L 95 Room Air 11/13/23 04:04 36.9 C 70 20 114/48 L 96 Room Air 11/12/23 22:54 36.4 C L 65 16 98/62 L 95 CPAP Diagnostic Findings Shoulder X-Ray 11/12/23 12:43 XR shoulder RT min 2V routine CLINICAL HISTORY: Post shoulder surgery TECHNIQUE: 3 views of the right shoulder were obtained. Comparison: Comparison is made to chest radiograph 10/17/2023 FINDINGS: Patient is status post shoulder arthroplasty with expected postsurgical changes including soft tissue swelling and subcutaneous emphysema. No periarticular lucency or hardware fracture is seen. IMPRESSION: Expected postoperative appearance status post placement of shoulder arthroplasty. ACT 112: Negative or not required by law. Electronically signed by: Goldy Post M.D. 11/12/2023 4:59 PM
[2023-11-13] MEDS ORDERED: MULTIVITAMIN TAB PO SCH (09:00)
--- NOTE | 2023-11-13 11:42 | Discharge Summary ---
Date of Service November 13, 2023 Admission HPI Per Admitting Provider 10/17/23: Chief Complaint: Chronic worsening cuff arthropathy to the right shoulder. History of Present Illness: Trina is a pleasant 87-year-old female who I did a left reverse shoulder replacement on a year ago. She has done fairly well with that. Unfortunately, she is dealing with debilitating right shoulder pain. I did send her for a signature CT scan of her right shoulder to make sure that I had enough bone stock to place an implant. It appears that I do. She presents to the office with her son for evaluation. We discussed diagnosis and treatment options in the office today. She is with her son. She would like to proceed with a right reverse shoulder arthroplasty. She understands the risks, benefits, and alternatives of the procedure and is electing to proceed. Questions were answered in the office today and consents were signed. Time was spent describing the procedure and postop expectations. She does understand that she is 87 years old and there is an increased risk with this surgery. We went over that in detail. I will see her back in the office 2 weeks postoperatively. Admission Exam Per Admitting Provider Appearance: This is a well-developed, well-nourished female in no apparent distress.Musculoskeletal: Physical examination of the right shoulder shows very limited range of motion. She has crepitus throughout. She has pain with range of motion of her shoulder. She is neurovascularly intact. Imaging: CT scan of the right shoulder did show severe cuff tear arthropathy with some superior wear of the glenoid; however, I do have enough bone stock for an implant. Principal Diagnosis Same as "Discharge Diagnosis" noted below under Discharge Instructions. Discharge Exam GENERAL: AA&Ox3, NAD. Pleasant, affect is calm. Lying in bed and appears comfortable. Sling donned to RUE, well-fitting. RESPIRATORY: Normal respiratory effort with no signs of distress. CHEST/AXILLA: Chest movement symmetrical. No deformities noted. CARDIOVASCULAR: No edema noted. SKIN: [place], warm and dry. MS/EXTREMITY: Shoulder Silverlon dressing c/d/i. + wrist/elbow AROM. Median/Ulnar/Radial nerve distributions intact to sensory/motor. Radial pulse intact, 2+. Discharge Data Allergies Allergy/AdvReac Type Severity Reaction Status Date / Time mold Allergy Intermediate Congestion Verified 11/12/23 09:45 adhesive Allergy Mild Rash Verified 11/12/23 09:45 dexamethasone Allergy Mild Swelling Verified 11/12/23 09:45 prednisone Allergy Mild Swelling Verified 11/12/23 09:45 guaifenesin [From Mucinex] Allergy Unknown Unknown Verified 11/12/23 09:45 NSAIDS (Non-Steroidal AdvReac Intermediate Breakthrough Verified 11/12/23 09:45 Anti-Inflamma bleeding, anemia, "burning off the abdomen" calcitriol AdvReac Mild Headache Verified 11/12/23 09:45 celecoxib [From Celebrex] AdvReac Mild decreased Verified 11/12/23 09:45 urine flow duloxetine AdvReac Mild "Over Verified 11/12/23 09:45 eating" pantoprazole AdvReac Mild Digestive Verified 11/12/23 09:45 issues pregabalin [From Lyrica] AdvReac Mild Confusion Verified 11/12/23 09:45 diclofenac AdvReac Unknown Unknown Verified 11/12/23 09:45 Procedures Performed Operation Date: 11/12/23 11:00 Actual Procedures p Right Reverse Total Shoulder Arthroplasty(Right) - Christian Cuba DO Ordered Studies 11/12/23 05:00 US - OR guided needle placemen Routine Shoulder X-Ray 11/12/23 12:43 XR shoulder RT min 2V routine CLINICAL HISTORY: Post shoulder surgery TECHNIQUE: 3 views of the right shoulder were obtained. Comparison: Comparison is made to chest radiograph 10/17/2023 FINDINGS: Patient is status post shoulder arthroplasty with expected postsurgical changes including soft tissue swelling and subcutaneous emphysema. No periarticular lucency or hardware fracture is seen. IMPRESSION: Expected postoperative appearance status post placement of shoulder arthroplasty. ACT 112: Negative or not required by law. Electronically signed by: Goldy Post M.D. 11/12/2023 4:59 PM Hospital Course (1) Rotator cuff arthropathy of right shoulder: (2) Status post reverse total replacement of right shoulder: On November 12, 2023 Trina arrived at [facility] operating room and underwent a right reverse total shoulder replacement without complications. Patient had an interscalene nerve block and general anesthetic for the procedure. Postoperatively, patient was transferred to the floor in stable condition and patient practiced early ambulation for DVT prophylaxis as appropriate. Patient's hospital course was uneventful. On postoperative day #1, patient's vital signs were stable and pain was well-controlled. Patient was able to participate well with physical therapy, performing the necessary ambulation and range of motion exercises. She has a specialized rollator style walker that she uses for ambulation. She was able to demonstrate to the therapists her ability to use this device safely. The patient was [facility]. Unfortunately insurance insurance denied [facility] placement. Per family then set up an appeal. Unfortunate appeal did not help so they appeal through Medicare. Unfortunately the Medicare appeal did not go through either. She eventually had approval at [place] and was discharged on oral pain medications. She did well throughout her stay. Her vital signs remained stable. She did have some issues with her bowel movements but she has known irritable bowel syndrome. The ting were removed before she left. She will follow-up with orthopedics in 4 weeks. Plan 87-year-old woman POD# 1 s/p right reverse total shoulder replacement, doing well overall. Pain to the shoulder is well-controlled. Some residual numbness is noted secondary to the nerve block. Medically stable. Postoperative radiographs are well-appearing; hardware intact and well-positioned. Patient is neurologically intact. Plan: 1. DVT prophylaxis w/ early ambulation. Encourage elbow, wrist, digit AROM. 2. PT/OT as tolerated. Sling on at all times, including while sleeping, but may come off to shower and dress. 3. Pain control doing well with current pain regimen. 4. Disposition - pending full PT/OT evals, but seems they are recommending a rehab facility. 5. F/u 2-3 weeks post-op w/ orthopedics (Dr. Cuba's team), or as previously scheduled, for first post-op visit. Total Time Total Time Spent Total Time Spent (In Minutes): Total Time Spent with Patient: Total time spent is greater than 50% in coordination of care (as documented) at patient's floor/unit and/or counseling patient: Discharge Plan Discharge Items Patient Disposition: Transfer Inpatient Rehab Fac Reason For Visit: Right Shoulder Degenerative Joint Disease Discharge Diagnosis: Right reverse shoulder replacement Activity: Per Instructions section Non-emergency contact: Primary Care Provider and Surgeon Call non-emergency contact if: your wound has increased redness and your wound has increased drainage Follow-up/Referrals: Aj Kim CRNP [Primary Care Provider] - Macho,Christian T, PA-C [Physician Screen Repairer Crusher] - Diet: Regular Addtl Attending Provider Instructions: Activity and Therapy Recommendations: * If you are using [facility] then therapy will be provided at your home until they feel you have accomplished all of your goals. * If you are using [facility] then Physical Therapy will be provided until they feel you are ready to start Outpatient Physical Therapy. * If you are not using home therapy then Outpatient Physical Therapy should start about 3-5 days from your day of surgery. Therapy will last about 8-12 weeks * Wear your sling for 3 weeks, unless otherwise instructed. You may remove your sling to shower and to dress, but otherwise, you should be in your sling at all times, including while sleeping * The shoulder replacement is very stable and you can use your hand while in the sling * You were shown a series of exercises in the hospital. Do these exercises daily including the exercises you were shown in physical therapy. Medications: * Narcotic You will likely be sent home from the hospital with a prescription for the narcotic pain medication that worked best throughout your stay. * Cefadroxil -take the antibiotic twice a day for 10 days to help prevent infection. * Other medications may be prescribed for specific circumstances. If you have any questions, please call the office at . * Resume previous home medications unless otherwise instructed Things To Watch For: * Drainage from the incision site that occurs more than one week after your surgery. * Increased redness at the incision site. * Fever above 102 degrees Fahrenheit. * Unusual chest pain or shortness of breath. * Call [facility] at with any of the above problems Follow-Up Visit: Follow-up with Dr. Cuba in 4 weeks for follow-up. Please call the office to set up an appointment for a time that works for you. More detailed instructions as well as Frequently Asked Questions were provided in a folder by our office when you signed-up for surgery. Please review these instructions when you get home. If you have any further questions or concerns, please feel free to call the office at [phone] Pending Studies at Discharge: No Stand-Alone Forms: My [facility] [address] Skilled Items Patient informed of condition?: Yes DNR: No Discharge Level of Care: Acute rehab Communicable Disease: No Discharge Prognosis: Improving Lines: None Urinary Catheter: No Medications and DC Order Prescriptions: New cefadroxil 500 mg capsule 500 mg PO BID 10 Days Qty: 20 0RF Continued mupirocin 2 % ointment 1 applic topical BID PRN (Reason: epistaxis ) Qty: 15 3RF Rx Instructions: Apply small amount to the rim of the nostril BID x PRN nasal dryness and/or epistaxis hydrochlorothiazide 25 mg tablet 25 mg PO QAM Qty: 90 3RF amoxicillin 500 mg tablet 2,000 mg PO ONCE Qty: 4 3RF Rx Instructions: 4 tabs 1 hour prior to procedure omega-3 fatty acids 1,250 mg capsule 2,500 mg PO QAM [id number]#[id number] 500 mg-116.7 mg-133.3 mg capsule 3 cap PO QAM Saline Nasal 0.65 % aerosol,spray 1 spray intranasal ONCE PRN (Reason: Congestion) simethicone [Anti-Gas Ultra Strength] 180 mg capsule 180 mg PO BID PRN (Reason: gas relief) acetaminophen 650 mg tablet extended release 1,300 mg PO BID cholecalciferol (vitamin D3) 2,000 unit tablet 2,000 units PO QAM multivitamin Tablet 1 tab PO QAM lidocaine HCl [Aspercreme (lidocaine HCl)] 4 % Cream 1 applic topical BID PRN (Reason: pain) Citrucel 500 mg Tablet 500 mg PO BID Patient Comments: morning and lunch cyanocobalamin (vitamin B-12) [Vitamin B-12] 1,000 mcg Tablet 1,000 mcg PO Q2D Patient Comments: takes in the am biotin 300 mcg Tablet 300 mcg PO QAM naproxen sodium 220 mg Tablet 220 mg PO QAM Citrucel (sucrose) Powder 1 tbsp PO HS nwfdwtwu-ahazst-ujgdq pepper 125 mg-6 mg- 50 mcg Tablet,Chewable 1 tab PO TID Rx Instructions: w/meals azelastine 137 mcg (0.1 %) aerosol,spray 1 spray intranasal QAM Rx Instructions: administer into each nostril Pataday Once Daily Relief 0.7 % drops 1 drp ophthalmic (eye) QAM PRN (Reason: dry, itchy eyes) tramadol 50 mg tablet 50 mg PO Q8H PRN (Reason: pain) Qty: 30 0RF Discharge Orders: Discharge Order (Routine); Ordered 11/26/23 Ordered By: Christian Cuba Admission Data Admit Date/Time: 11/15/23 13:13 Attending Provider: Christian Cuba Admit Provider: Christian Cuba Primary Care Provider: Aj Kim Other Providers: [facility]; [place],[facility]
[2023-11-13] MEDS: oxyCODONE HCL IR 5 MG TAB (IMMEDIATE RELEASE) PO PRN (21:06)
[2023-11-14] MEDS: MAGNESIUM HYDROXIDE SUSP 30 ML UDC PO PRN (09:52)
--- NOTE | 2023-11-14 13:53 | Orthopedic Progress Note ---
Date of Service November 14, 2023 Assessment & Plan (1) Rotator cuff arthropathy of right shoulder: (2) Status post reverse total replacement of right shoulder: Plan 87-year-old woman POD# 2 s/p right reverse total shoulder replacement, doing well overall. Pain remains well-controlled overall. Numbness has resolved. Patient remains medically stable. Plan: 1. DVT prophylaxis w/ early ambulation. Encourage elbow, wrist, digit AROM. 2. PT/OT as tolerated. Sling on at all times, including while sleeping, but may come off to shower and dress. 3. Pain control doing well with current pain regimen. 4. Disposition - PT/OT recommending rehab - per case management, pending a uthorization for [facility]. 5. F/u 2-3 weeks post-op w/ orthopedics (Dr. Cuba's team), or as previously scheduled, for first post-op outpatient visit. Admission and Anticipated Discharge Date Admission Date: November 12, 2023 Subjective Patient is POD# 2 s/p right reverse total shoulder arthroplasty by Dr. Cuba on 11/12/2019. She had a bit of pain increase last night, but says that she understands it was due to her nerve block wearing off. So, with that, she has had resolution of the numbness to her right forearm/hand/digits. Authorization for transfer to [facility] IRF is pending. Denies CP, SOB, N/V. Physical Exam Physical Exam: GENERAL: AA&Ox3, NAD. Pleasant, affect is calm. Lying in bed and appears comfortable. Sling donned to RUE, well-fitting. RESPIRATORY: Normal respiratory effort with no signs of distress. CHEST/AXILLA: Chest movement symmetrical. No deformities noted. CARDIOVASCULAR: No edema noted. SKIN: [place], warm and dry. MS/EXTREMITY: Shoulder Silverlon dressing c/d/i. + wrist/elbow AROM. Median/Ulnar/Radial nerve distributions intact to sensory/motor. Radial pulse intact, 2+. Results & Data Vital Signs (Past 12 Hours) Vital Signs Temp Pulse Resp BP Pulse Ox O2 Del Method 11/14/23 07:30 Room Air 11/14/23 07:08 36.8 C 68 16 126/74 95 Room Air
[2023-11-14] MEDS ORDERED: METHYLCELLULOSE POWDER 454 GM JAR PO SCH (21:00)
[2023-11-14] MEDS: METHYLCELLULOSE POWDER 454 GM JAR PO SCH (21:22)
--- NOTE | 2023-11-15 11:41 | Orthopedic Progress Note ---
Date of Service November 15, 2023 Assessment & Plan (1) Rotator cuff arthropathy of right shoulder: (2) Status post reverse total replacement of right shoulder: Plan 87-year-old woman POD# 3 s/p right reverse total shoulder replacement, doing well overall. Pain remains well-controlled overall. Numbness has resolved. Patient remains medically stable. Plan: 1. DVT prophylaxis w/ continued ambulation. Encourage elbow, wrist, digit AROM. 2. Con't PT/OT as tolerated. Sling on at all times, including while sleeping, but may come off to shower and dress. 3. Pain control doing well with current pain regimen. 4. Disposition - PT/OT recommending rehab - per case management, authorization for [facility] was denied by patient's insurance, but appeal process is in place. She plans to exhaust all options to go to [facility], but [facility] would be a secondary option. 5. F/u 2-3 weeks post-op w/ orthopedics (Dr. Cuba's team), or as previously scheduled, for first post-op outpatient visit. Admission and Anticipated Discharge Date Admission Date: November 12, 2023 Subjective Patient is POD# 3 s/p right reverse total shoulder arthroplasty by Dr. Cuba on 11/12/2019. Pain is relatively well-controlled, but the patient has had to use some oxycodone recently. She says that the authorization for transfer to [facility]F was denied per case management, and she is awaiting appeal to see if she can be accepted. It seems that [facility] would be a secondary option. Denies CP, SOB, N/V. Physical Exam Physical Exam: GENERAL: AA&Ox3, NAD. Pleasant, affect is calm. Lying in bed and appears comfortable. Sling donned to RUE, well-fitting. RESPIRATORY: Normal respiratory effort with no signs of distress. CHEST/AXILLA: Chest movement symmetrical. No deformities noted. CARDIOVASCULAR: No edema noted. SKIN: [place], warm and dry. MS/EXTREMITY: Shoulder Silverlon dressing c/d/i. + wrist/elbow AROM. Median/Ulnar/Radial nerve distributions intact to sensory/motor. Radial pulse intact, 2+. Results & Data Vital Signs (Past 12 Hours) Vital Signs Temp Pulse Resp BP Pulse Ox O2 Del Method 11/15/23 07:48 36.8 C 71 18 158/66 H 96 Room Air
[2023-11-15] MEDS: bisacodyL 10 MG SUPP PR PRN (15:24)
--- NOTE | 2023-11-16 11:19 | Orthopedic Progress Note ---
Date of Service November 16, 2023 Assessment & Plan (1) Rotator cuff arthropathy of right shoulder: (2) Status post reverse total replacement of right shoulder: Plan 87-year-old woman POD# 4 s/p right reverse total shoulder replacement, doing well overall. Pain to the right shoulder remains well-controlled. Numbness has not returned. Patient remains medically stable. Awaiting decision on placement to IRF vs. SNF Plan: 1. DVT prophylaxis w/ continued ambulation. Encourage elbow, wrist, digit AROM. 2. Con't PT/OT as tolerated. Sling on at all times, including while sleeping, but may come off to shower and dress. 3. Pain control doing well with current pain regimen. 4. Dressing - leave Silverlon dressing in place for 7 days postop. 5. Disposition - PT/OT recommending rehab - patient/family appealing the denial to [facility] IRF. She plans to exhaust all options to go to [facility], but [facility] remains a secondary option. 6. F/u 2-3 weeks post-op w/ orthopedics (Dr. Cuba's team), or as previously scheduled, for first post-op outpatient visit. Admission and Anticipated Discharge Date Admission Date: November 15, 2023 Subjective Patient is POD# 4 s/p right reverse total shoulder arthroplasty by Dr. Cuba on 11/12/2019. Pain remains well-controlled. Denies CP, SOB, N/V. Did have a bowel movement yesterday, but still having difficult time going regularly. She and her family are appealing the denial to [facility] IRF. [facility] remains a secondary option. Physical Exam Physical Exam: GENERAL: AA&Ox3, NAD. Pleasant, affect is calm. Lying in bed and appears comfortable. Sling donned to RUE, well-fitting. RESPIRATORY: Normal respiratory effort with no signs of distress. CHEST/AXILLA: Chest movement symmetrical. No deformities noted. CARDIOVASCULAR: No edema noted. SKIN: [place], warm and dry. MS/EXTREMITY: Shoulder Silverlon dressing c/d/i. + wrist/elbow AROM. Median/Ulnar/Radial nerve distributions intact to sensory/motor. Radial pulse intact, 2+. Results & Data Vital Signs (Past 12 Hours) Vital Signs Temp Pulse Resp BP Pulse Ox O2 Del Method 11/16/23 07:46 36.8 C 67 18 139/78 96 Room Air
[2023-11-16] MEDS: METHYLCELLULOSE POWDER 454 GM JAR PO SCH (15:22)
--- NOTE | 2023-11-17 08:13 | Orthopedic Progress Note ---
Date of Service November 17, 2023 Assessment & Plan (1) Status post reverse total replacement of right shoulder: Overall she is doing fairly well with regards to her right shoulder. A little bit sore but she has been participating well with therapy. I did order MiraLAX per her request. She is awaiting placement at a rehab facility. She is orthopedically stable for discharge when a bed becomes available. She will follow-up with orthopedics in 2 weeks. Pallavi Mena was seen and examined at bedside this morning. Overall she is doing okay. She is having some trouble with her bowel movements and was asking for MiraLAX. Her shoulder is doing fairly well. She is awaiting rehab placement.. Review of Systems All systems reviewed & are unremarkable except as noted in HPI & below. Physical Exam On physical examination of the right shoulder, the dressing is clean and dry. She is wearing her sling as instructed. She has active motion of her hand and her wrist.. Results & Data Results & Data Laboratory Results . Diagnostic Findings . PG Care Time/CCT Total # of Minutes Spent Total Time Spent with Patient: Total time spent is greater than 50% in coordination of care (as documented) at patient's floor/unit and/or counseling patient: Coding Level of Care Code 92074 Post Operative Follow-Up Diagnoses Status post reverse total replacement of right shoulder Z96.611
[2023-11-17] MEDS: POLYETHYLENE (MIRALAX) 17 GM PACK PO PRN (10:26)
--- NOTE | 2023-11-18 07:41 | Orthopedic Progress Note ---
Date of Service November 18, 2023 Assessment & Plan (1) Status post reverse total replacement of right shoulder: Overall she is doing well. She is not having much pain in the right shoulder. The MiraLAX helped her have a bowel movement yesterday. She is trying to get into a rehab facility. She is orthopedically stable for discharge when a bed is available at a rehab facility. Pallavi Mena was seen and examined at bedside this morning. Overall she is doing fairly well. She is not having much pain in the right shoulder. She was given the MiraLAX yesterday and was able to have a bowel movement. She has no new complaints.. Review of Systems All systems reviewed & are unremarkable except as noted in HPI & below. Physical Exam On physical examination of the right shoulder, the dressing is clean and dry. She is wearing her sling as instructed.. Results & Data Results & Data Laboratory Results . Diagnostic Findings . PG Care Time/CCT Total # of Minutes Spent Total Time Spent with Patient: Total time spent is greater than 50% in coordination of care (as documented) at patient's floor/unit and/or counseling patient: Coding Level of Care Code 54818 Post Operative Follow-Up Diagnoses Status post reverse total replacement of right shoulder Z96.611
--- NOTE | 2023-11-19 10:16 | Orthopedic Progress Note ---
Date of Service November 19, 2023 Assessment & Plan (1) Status post reverse total replacement of right shoulder: Overall she is doing well. She is not having much pain in the right shoulder. She will be seen by physical therapy today. She is currently awaiting placement at a rehab facility. She is orthopedically stable for discharge when medically ready. Full orthopedic discharge instructions have been done. Pallavi Mena was seen and examined at bedside this morning. Overall she is doing well with her shoulder. She is not having too much pain. She has been having bowel movements. She has no complaints.. Review of Systems All systems reviewed & are unremarkable except as noted in HPI & below. Physical Exam On physical examination of right shoulder, the dressing is clean and dry. She is wearing her sling as instructed.. Results & Data Results & Data Laboratory Results . Diagnostic Findings . PG Care Time/CCT Total # of Minutes Spent Total Time Spent with Patient: Total time spent is greater than 50% in coordination of care (as documented) at patient's floor/unit and/or counseling patient: Coding Level of Care Code 83025 Post Operative Follow-Up Diagnoses Status post reverse total replacement of right shoulder Z96.611
[2023-11-19] MEDS: traMADol HCL 50 MG TABLET PO PRN (10:25)
--- NOTE | 2023-11-20 06:54 | Orthopedic Progress Note ---
Date of Service November 20, 2023 Assessment & Plan (1) Status post reverse total replacement of right shoulder: Overall she is doing well with regards to the shoulder. Her vital signs are stable. She can be discharged to [facility] later today. She will follow-up with orthopedics in 2 weeks. Pallavi Mena was seen and examined at bedside this morning. Overall she is doing okay. She is not having much pain in the shoulder. The dressing is becoming itchy. That should be removed today. She has no other complaints.. Review of Systems All systems reviewed & are unremarkable except as noted in HPI & below. Physical Exam On physical examination of the right shoulder, the dressing was removed. She is wearing her sling as instructed. She is active motion of her hand and her wrist.. Results & Data Results & Data Laboratory Results . Diagnostic Findings . PG Care Time/CCT Total # of Minutes Spent Total Time Spent with Patient: Total time spent is greater than 50% in coordination of care (as documented) at patient's floor/unit and/or counseling patient: Coding Level of Care Code 78954 Post Operative Follow-Up Diagnoses Status post reverse total replacement of right shoulder Z96.611
--- NOTE | 2023-11-21 16:23 | Orthopedic Progress Note ---
Date of Service November 21, 2023 Assessment & Plan (1) Status post reverse total replacement of right shoulder: Overall she is doing well. She is not having much pain in the right shoulder. She is ready to go to a rehab facility. The family is still trying to appeal placement to [facility] through the insurance company. She is orthopedically stable for discharge when a bed becomes available at a penitentiary or rehab facility. Pallavi Mena was seen and examined at bedside this morning. Overall she is doing fairly well. She is not having much pain in the right shoulder. She was able to get some sleep last night. She has no complaints.. Review of Systems All systems reviewed & are unremarkable except as noted in HPI & below. Physical Exam On physical examination of right shoulder, the dressing has been removed. The ting are dry and open to air. She is wearing her sling as instructed.. Results & Data Results & Data Laboratory Results . Diagnostic Findings . PG Care Time/CCT Total # of Minutes Spent Total Time Spent with Patient: Total time spent is greater than 50% in coordination of care (as documented) at patient's floor/unit and/or counseling patient: Coding Level of Care Code 38771 Post Operative Follow-Up Diagnoses Status post reverse total replacement of right shoulder Z96.611
--- NOTE | 2023-11-22 08:32 | Orthopedic Progress Note ---
Date of Service November 22, 2023 Assessment & Plan (1) Status post reverse total replacement of right shoulder: - I had a detailed conversation with the patient regarding where she will be going after discharge from the hospital. She states she is still not sure. - I reached out to the continuous pillowcase cutter to get an update from her. She states that Trina/Trina's family did do the family appeal for [facility] and on Sunday, there was still 72 hours for a determination of approval or denial with her insurance. district manager major accounts sales states that they should know today the final decision on that. However, if this is still denied, they have lost the available bed at [facility] and will need to start the process over again. Appreciate her assistance in this case. -Patient to remain in sling and ting still in. This will be taken out in our office. - We will keep in touch with continuous pillowcase cutter as rehab/SNF is her limiting factor for discharge at this time. Orthopedically, she is stable for discharge. -Please reach out to ortho with any other questions or concerns. Subjective Operation Date: 11/12/23 11:00 Actual Procedures p Right Reverse Total Shoulder Arthroplasty(Right) - Christian Cuba DO Trina is an 87 year old female who is POD 10 from a right reverse total shoulder by Dr. Cuba. She is doing very well at today's check. No questions or concerns in regards to the surgery. She is still in the hospital as she wanted to go to [facility] for rehab, however she is still in the family appeal process. No other questions or concerns today. Review of Systems All systems reviewed & are unremarkable except as noted in HPI & below. Physical Exam General: alert and oriented. In no acute distress. She is resting comfortably in her hospital chair. Right shoulder in sling. Wound check satisfactory. No erythema, edema, drainage or dehiscence. [place] intact. She remains [place] intact. Results & Data Results & Data Laboratory Results . Diagnostic Findings . PG Care Time/CCT Total # of Minutes Spent Total Time Spent with Patient: Total time spent is greater than 50% in coordination of care (as documented) at patient's floor/unit and/or counseling patient: Coding Level of Care Code 37888 Post Operative Follow-Up Diagnoses Status post reverse total replacement of right shoulder Z96.611
[2023-11-22] MEDS: SIMETHICONE 80 MG CHEW PO PRN (23:10)
--- NOTE | 2023-11-24 08:28 | Orthopedic Progress Note ---
Date of Service November 24, 2023 Assessment & Plan (1) Status post reverse total replacement of right shoulder: Overall she is doing well. She is not having much pain in the right shoulder. She will be seen by therapy today for ambulation and range of motion exercises. She will be in the hospital at least until Sunday where she can go to [place]. We will remove her ting on Sunday. Pallavi Mena was seen and examined at bedside this morning. Overall she is doing well. She is not having much pain in the right shoulder. She is having bowel movements. She has no complaints.. Review of Systems All systems reviewed & are unremarkable except as noted in HPI & below. Physical Exam Physical examination of right shoulder, the ting are clean and dry. She is wearing her sling as instructed.. Results & Data Results & Data Laboratory Results . Diagnostic Findings . PG Care Time/CCT Total # of Minutes Spent Total Time Spent with Patient: Total time spent is greater than 50% in coordination of care (as documented) at patient's floor/unit and/or counseling patient: Coding Level of Care Code 95298 Post Operative Follow-Up Diagnoses Status post reverse total replacement of right shoulder Z96.611
--- NOTE | 2023-11-25 22:26 | Orthopedic Progress Note ---
Date of Service November 25, 2023 Assessment & Plan (1) Status post reverse total replacement of right shoulder: Overall she is doing well. She is not having much pain in the right shoulder. She will be seen by therapy today for ambulation and range of motion exercises. She will be in the hospital at least until Sunday where she can go to [place]. We will remove her ting on Sunday. Subjective Trina continues to do fairly well. She is moving her bowels some. She is not having much pain in the right shoulder. We are currently awaiting discharge to [place] tomorrow.. Review of Systems All systems reviewed & are unremarkable except as noted in HPI & below. Physical Exam On physical examination of the right shoulder, the incision is clean and dry. She is wearing her sling as instructed. She is neurovascular intact.. Constitutional no acute distress ENMT Mouth: no dentition abnormality Mallampati Class: II Neck normal visual inspection Respiratory normal respiratory effort; no respiratory distress Auscultation: lungs clear to auscultation bilaterally Cardiovascular Rate/Rhythm: regular rate and regular rhythm Heart Sounds: no murmur Musculoskeletal Spine: normal cervical ROM Psychiatric Orientation: alert and oriented x 3 Results & Data Results & Data Laboratory Results . Diagnostic Findings . PG Care Time/CCT Total # of Minutes Spent Total Time Spent with Patient: Total time spent is greater than 50% in coordination of care (as documented) at patient's floor/unit and/or counseling patient: Coding Level of Care Code 37598 Post Operative Follow-Up Diagnoses Status post reverse total replacement of right shoulder Z96.611
--- NOTE | 2023-11-26 12:40 | Orthopedic Progress Note ---
Date of Service November 26, 2023 Assessment & Plan (1) Status post reverse total replacement of right shoulder: Overall she is doing okay. She is having bowel movements but she still has some IBS. Were hoping to discharge her to [place] today. Her vital signs are stable. Will see if a change of scenery and a new diet helps with her IBS at all. Ting were removed at bedside. She can follow-up with orthopedics in 4 weeks. Pallavi Mena was seen and examined at bedside this morning. Overall she is doing okay. She says she still dealing with some IBS. She says that this is a chronic issue and her primary care physician is aware. Her shoulder is doing fairly well. She has no other complaints.. Review of Systems All systems reviewed & are unremarkable except as noted in HPI & below. Physical Exam No pathology noted to the right shoulder, the incision is well-healed and ting were removed at bedside.. Results & Data Results & Data Laboratory Results . Diagnostic Findings . PG Care Time/CCT Total # of Minutes Spent Total Time Spent with Patient: Total time spent is greater than 50% in coordination of care (as documented) at patient's floor/unit and/or counseling patient: Coding Level of Care Code 39648 Post Operative Follow-Up Diagnoses Status post reverse total replacement of right shoulder Z96.611
== END 2023-11-26 15:06 | DRG 483 ==
LOC: ASU 09:11 → 3N 09:11

== ENCOUNTER 2024-12-26 08:34 | Observation (INO) ==
--- NOTE | 2024-12-26 08:45 | Emergency Department Note ---
Impression & Plan Fall, Acute knee pain, Ambulatory dysfunction, Leukocytosis ED Provider Note NAME: MONE MATAMOROS AGE: 89 SEX: F : 1935 ARRIVES VIA: Ambulance INFORMANT: Patient ED PROVIDER(S): Jhonatan Lares DO CHIEF COMPLAINT: Fall HPI: Patient is an 89-year-old female with a past medical history of mitral regurg, chronic lower back pain and venous insufficiency who presents to the ER as she was getting off the toilet she fell forward onto her knees. She was on her knees for 3 to 4 hours. She did not hit her head. No head or neck pain. No chest pain or shortness of breath. She notes she cannot walk. She has chronic back pain and that is slightly worse than usual. Denies any focal weakness or numbness in the arms or legs. ADDITIONAL HISTORY OBTAINED: Per HPI Chronic Medical/Social Conditions Affecting Care: Per HPI PAST MEDICAL HISTORY:See Below PAST SURGICAL HISTORY:See Below FAMILY HISTORY:See Below SOCIAL HISTORY:See Below HOME MEDICATIONS:See Below ALLERGIES:See Below VITALS:See Below PHYSICAL EXAMINATION: GENERAL: alert, well appearing, well nourished, no distress, non-toxic HEAD: normal cephalic, atraumatic EYE EXAM: normal conjunctiva, PERRL and EOM's grossly intact OROPHARYNX: no exudate, no erythema, lips, buccal mucosa, and tongue normal and mucous membranes are moist NECK: supple, no nuchal rigidity, no adenopathy, non-tender CHEST: stable to compression anteriorly and posteriorly LUNGS: clear to auscultation. Normal chest wall mechanics HEART: no murmurs, S1 normal and S2 normal ABDOMEN: abdomen soft, non-tender, normo-active bowel sounds, no masses, no rebound or guarding. PELVIS: stable to compression anteriorly and posteriorly BACK: Back is symmetrical on inspection and there is no deformity, no midline tenderness, no CVA tenderness. UPPER EXTREMITIES: full active and passive range of motion of all joints without tenderness to palpation LOWER EXTREMITIES: No tenderness on the proximal femurs to mid femurs. Bruising and swelling over the bilateral knees. Skin is intact. No tenderness throughout the mid or distal tib-fib's ankles or feet. DPs are 2 out of 4. Gross station intact. Compartments are soft. NEURO EXAM: Normal sensorium, cranial nerves II-XII grossly intact, normal speech, no gross weakness of arms, no gross weakness of legs. GCS: 15. MEDICAL DECISION MAKING: Patient is an 9-year-old female who presents ER with above-stated complaint. IV was established and blood work was obtained. Labs show leukocytosis of 34,000. No significant anemia. BMP with a creatinine of 0.4. Calcium mildly elevated at 10. CK slightly up at 266. Patient had a mechanical fall to her knees. X- rays of the bilateral knees were fine. She has been unable to walk since being home. Patient did not hit her head. There is no head strike or neck pain. There is no syncopal event. She was updated bedside and discussed with the hospitalist for further evaluation management and treatment. Consults/Care Managements Discussions: Per MDM Triage Nursing notes reviewed. Limited review of prior medical records performed Vital Signs: reviewed and remarkable for HTN Differential diagnosis: Differential diagnoses includes but is not limited to gastritis, peptic ulcer disease, GERD, gallbladder disease, pancreatitis, small bowel obstruction, appendicitis, diverticulitis, hernia, urinary tract infection, torsion, perforation, trauma, infectious. ER treatment provided: See below Diagnostics interpreted by me include EKG and cardiac monitoring as listed below: -Cardiac Monitoring: An order was placed for continuous cardiac monitoring. The monitor shows a rate of 80 with sinus rhythm. -ECG: none -Laboratory studies:Interpreted by me as stated above in MDM and shown below. Imaging studies: Xrays: As interpreted by me: X-rays of bilateral knees show no acute fracture CTs show: none Procedures:none Critical Care: None Past Med/Surg History Problem List (Updated 12/26/24 @ 13:37 by Jhonatan Lares DO) Leukocytosis (Acute) Ambulatory dysfunction (Acute) Acute knee pain (Acute) Fall (Acute) Nocturnal hypoxemia Venous insufficiency Incontinence overflow, urine Scar of nose Chronic lymphocytic leukemia Follows with Dr. Jonathon Alvarenga at this time per patient Status post reverse total replacement of right shoulder (~11/2023) Chronic pain Aortic valve sclerosis Mitral regurgitation Worsening dysgraphia Chronic low back pain Medical History Rotator cuff arthropathy of right shoulder Cervical radiculopathy Cervical spinal stenosis Urinary incontinence Deviated nasal septum Statin intolerance IBS (irritable bowel syndrome) LPRD (laryngopharyngeal reflux disease) Osteoarthritis, generalized Secondary hyperparathyroidism Rotator cuff arthropathy of both shoulders Tremor Gait disorder Anxiety Lymphedema Bilateral tinnitus Hammer toes of both feet Bilateral sensorineural hearing loss Fibromyalgia Hypercholesterolemia Obstructive sleep apnea Osteoporosis Spinal stenosis Cyst of right kidney Hypertension Peripheral neuropathy Premature ventricular contractions Scoliosis Atrial flutter Surgical History Hx of left cataract extraction Status post reverse total replacement of left shoulder Hx of right cataract extraction H/O esophagogastroduodenoscopy H/O colonoscopy S/P cholecystectomy S/P tonsillectomy and adenoidectomy S/P ovarian cystectomy S/P dilation and curettage Family History Sister Breast cancer Father Congestive heart failure Mother Coronary heart disease Hypertension Family/Other Cancer Uncle Kidney malignancy Brother Prostate cancer Grandfather Prostate cancer Other Hx of breast cancer No family history of adverse response to anesthesia Denies family history of Colon cancer Ovarian cancer Myocardial infarction Colorectal cancer Social History Smoking Status: Never smoker Second Hand Exposure: No; Do You Dip or Chew Tobacco: No; Hx Alcohol Use: No Hx Substance Use: No Preferred Language: Ukrainian Communication Ability: Effective Visual Impairment: Limited Hearing Ability: Hard of Hearing Customer Experience Intern Required: No Beliefs That Will Affect Care: None marital status: / Current Living Situation: Alone Current Living Situation Comment: apartment with senior apartments current occupational status: retired How many Children do You have: 4 How many Children do You have Comment: 4 boys Feels Safe at Home: Yes Childhood Exposure to Second-Hand Smoke: No Diet: regular Diet Comment: dash diet caffeine: No during the past year weight has: remained stable Dental Care, Regularly: Yes Physical Activity Frequency: Does not Exercise Seatbelt Use: always Sunscreen Use: Yes Do you think of yourself as: straight/heterosexual Assistive Devices: Walker and Other (shower chair ) Allergies Allergies Allergy/AdvReac Type Severity Reaction Status Date / Time mold Allergy Intermediate Congestion Verified 12/26/24 09:46 adhesive Allergy Mild Rash Verified 12/26/24 09:46 dexamethasone Allergy Mild Swelling Verified 12/26/24 09:46 prednisone Allergy Mild Swelling Verified 12/26/24 09:46 guaifenesin [From Mucinex] Allergy Unknown Unknown Verified 12/26/24 09:46 NSAIDS (Non-Steroidal AdvReac Intermediate Breakthrough Verified 12/26/24 09:46 Anti-Inflamma bleeding, anemia, "burning off the abdomen" calcitriol AdvReac Mild Headache Verified 12/26/24 09:46 celecoxib [From Celebrex] AdvReac Mild decreased Verified 12/26/24 09:46 urine flow duloxetine AdvReac Mild "Over Verified 12/26/24 09:46 eating" pantoprazole AdvReac Mild Digestive Verified 12/26/24 09:46 issues pregabalin [From Lyrica] AdvReac Mild Confusion Verified 12/26/24 09:46 diclofenac AdvReac Unknown Unknown Verified 12/26/24 09:46 Home Meds Home Medications Medication Instructions Recorded Confirmed acetaminophen 650 mg 1,300 mg PO BID 02/06/19 12/26/24 tablet,extended release cholecalciferol (vitamin D3) 50 2,000 units PO QAM 02/06/19 12/26/24 mcg (2,000 unit) tablet simethicone 180 mg capsule 180 mg PO BID PRN gas relief 08/03/22 12/26/24 (Anti-Gas Ultra Strength) sodium chloride 0.65 % nasal spray 1 spray intranasal ONCE PRN 08/03/22 12/26/24 aerosol (Saline Nasal) Congestion lidocaine HCl 4 % topical cream 1 applic topical BID PRN pain 09/25/22 12/26/24 (Aspercreme (lidocaine HCl)) multivitamin 1 tab PO QAM 09/25/22 12/26/24 glucosamine 500 mg-chondroitin 3 cap PO QAM 02/27/23 12/26/24 116.7 mg-herbal no.270 133.3 mg capsule omega-3 fatty acids 1,250 mg 2,500 mg PO QAM 02/27/23 12/26/24 capsule cyanocobalamin (vitamin B-12) 1,000 mcg PO Q2D 08/22/23 12/26/24 1,000 mcg tablet (Vitamin B-12) methylcellulose (with sugar) oral 1 tbsp PO HS 08/22/23 12/26/24 powder (Citrucel (sucrose) oral powder) olopatadine 0.7 % eye drops 1 drp ophthalmic (eye) QAM PRN 08/22/23 12/26/24 (Pataday Once Daily Relief) dry, itchy eyes turmeric 125 mg-young root 6 1 tab PO TID 08/22/23 12/26/24 mg-black pepper 50 mcg chewable tablet methylcellulose (laxative) 500 mg 500 mg PO BID 09/11/23 12/26/24 tablet (Citrucel) polyethylene glycol 3350 17 17 g PO DAILY 01/08/24 12/26/24 gram/dose oral powder urea 25 %-allantoin-vitamin E 1 applic topical DAILY 08/05/24 12/26/24 topical cream (Flexitol) biotin 10 mg tablet 300 mg PO DAILY 12/26/24 12/26/24 Previous Rx's Medication Instructions Recorded compress.stocking,knee,reg,med #2 ea 06/13/24 hydrochlorothiazide 25 mg tablet 25 mg PO QAM #90 tabs 06/24/24 amoxicillin 500 mg capsule 2,000 mg (4 x 500 mg) PO ONCE #4 09/01/24 caps Grab Bars #2 ea 09/05/24 Results & Data (ED) Vital Signs Vital Signs - 24 hr 12/26/24 08:43 12/26/24 08:43 12/26/24 09:04 Temperature 37.2 C Temperature Source Oral Pulse Rate 77 74 Pulse Rate [Apical] Respiratory Rate 14 Respiratory Effort / Characteristics Non-Labored Spontaneous Respiratory Depth Normal Blood Pressure 165/58 H Blood Pressure [Left Arm] Blood Pressure Mean 93 Blood Pressure Mean [Left Arm] Blood Pressure Position [Left Arm] Pulse Oximetry 100 100 Oxygen Delivery Method Room Air Room Air Sepsis Recent Fever Within 48 Hours No Sepsis New/Unexplained Change in Mental Status N/A Sepsis Action Taken by Nursing No Action Required 12/26/24 10:30 12/26/24 12:10 12/26/24 13:00 Temperature Temperature Source Pulse Rate Pulse Rate [Apical] 82 77 73 Respiratory Rate 16 16 17 Respiratory Effort / Characteristics Non-Labored Spontaneous Non-Labored Spontaneous Non-Labored Spontaneous Respiratory Depth Normal Normal Normal Blood Pressure Blood Pressure [Left Arm] 164/81 H 152/63 H 121/54 L Blood Pressure Mean Blood Pressure Mean [Left Arm] 108 92 76 Blood Pressure Position [Left Arm] Semi-fowlers Semi-fowlers Semi-fowlers Pulse Oximetry 92 100 96 Oxygen Delivery Method Room Air Room Air Room Air Sepsis Recent Fever Within 48 Hours Sepsis New/Unexplained Change in Mental Status Sepsis Action Taken by Nursing 12/26/24 13:12 Temperature Temperature Source Pulse Rate 79 Pulse Rate [Apical] Respiratory Rate Respiratory Effort / Characteristics Respiratory Depth Blood Pressure Blood Pressure [Left Arm] Blood Pressure Mean Blood Pressure Mean [Left Arm] Blood Pressure Position [Left Arm] Pulse Oximetry Oxygen Delivery Method Sepsis Recent Fever Within 48 Hours Sepsis New/Unexplained Change in Mental Status Sepsis Action Taken by Nursing Laboratory Data 12/26/24 09:24 12/26/24 09:24 Lab Results 12/26/24 Range/Units 09:24 WBC 34.62 H* (4.8-10.8) K/ul RBC 4.15 L (4.20-5.40) M/uL Hgb 13.3 (12.0-16.0) g/dl Hct 38.5 (37.0-47.0) % MCV 92.8 (80.0-100.0) fL MCH 32.0 (25.0-34.0) pg MCHC 34.5 (32.0-36.0) g/dL RDW Std Deviation 44.8 (36.4-46.3) fL RDW Coeff of Sushila 13.2 (11.5-14.5) % Plt Count 207 (130-400) K/uL MPV 10.8 (9.4-12.4) fL Immature Gran % (Auto) 0.6 % Neut % (Auto) 67.7 % Lymph % (Auto) 26.6 % Louisa % (Auto) 4.9 % Eos % (Auto) 0.0 % Baso % (Auto) 0.2 % Neut # (Auto) 23.44 H (1.40-6.50) K/uL Lymph # (Auto) 9.21 H (1.20-3.40) K/uL Louisa # (Auto) 1.68 H (0.11-0.59) K/uL Eos # (Auto) 0.00 (0.00-0.50) K/uL Baso # (Auto) 0.07 (0.00-0.20) K/uL Immature Gran # (Auto) 0.22 H (0.01-0.20) K/uL Sodium 135 L (136-145) mmol/L Potassium 3.6 (3.5-5.1) mmol/L Chloride 100 (98-107) mmol/L Carbon Dioxide 26 (21-32) mmol/L Anion Gap 9 (3-11) BUN 36 H (6-23) mg/dl Creatinine 0.45 L (0.6-1.2) mg/dl Est Cr Clr Drug Dosing 92.6 ml/min eGFR 92.48 BUN/Creatinine Ratio 80.0 H (10-20) Glucose 149 H (70-99(Fasting)) mg/dl Calcium 10.4 H (8.6-10.3) mg/dl Total Bilirubin 0.8 (0.2-1.0) mg/dl AST 29 (13-39) U/L ALT 18 (7-52) U/L Alkaline Phosphatase 79 (34-104) U/L Total Creatine Kinase 266 H (26-192) U/L Total Protein 7.2 (6.0-8.3) gm/dl Albumin 4.6 (3.4-5.0) gm/dl Globulin 2.6 (2.5-4.0) gm/dl Albumin/Globulin Ratio 1.8 (0.9-2) Lipase 9 L (11-82) U/L Administered Medications Discontinued Medications Sodium Chloride (Nss) 1,000 mls @ 999 mls/hr IV .Q1H1M ONE Stop: 12/26/24 11:30 Last Infusion: 12/26/24 12:15 Dose: Infused Documented By: Admin: 12/26/24 10:54 Dose: 999 mls/hr Documented By: [facility] Imaging Data Radiologist's Impression: Knee X-Ray 12/26/24 08:41 XR knee RT 3V CLINICAL HISTORY: knee pain . Fall. COMPARISON: None FINDINGS: There is moderate osteoarthritis. There is osteopenia. No fracture or dislocation seen. IMPRESSION: No fracture seen. ACT 112: Negative or not required by law. Electronically signed by: Jag Daugherty M.D. 12/26/2024 9:08 AM Knee X-Ray 12/26/24 08:41 XR knee LT 3V CLINICAL HISTORY: knee pain . Fall. COMPARISON: None FINDINGS: There is moderate osteoarthritis. There is osteopenia. No fracture or dislocation. IMPRESSION: No fracture seen. ACT 112: Negative or not required by law. Electronically signed by: Jag Daugherty M.D. 12/26/2024 9:09 AM Discharge Plan Visit Data Chief Complaint: Knee Injury/Pain Stated Complaint: KNEE PAIN ED Provider: Jhonatan Lares Discharge Problem: Fall, Acute knee pain, Ambulatory dysfunction, Leukocytosis Condition: Fair Forms Stand Alone Forms: [facility] Prescriptions Prescriptions: No Action (DME) compress.stocking,knee,reg,med Misc See Rx Instructions .Route Qty: 2 0RF Rx Instructions: Bilateral foot and calf velcro compression wraps hydrochlorothiazide 25 mg tablet 25 mg PO QAM Qty: 90 3RF amoxicillin 500 mg capsule 2,000 mg PO ONCE Qty: 4 3RF Rx Instructions: take 4 tabs 1 hour prior to dental appointment omega-3 fatty acids 1,250 mg capsule 2,500 mg PO QAM [id number] 500 mg-116.7 mg-133.3 mg capsule 3 cap PO QAM Saline Nasal 0.65 % aerosol,spray 1 spray intranasal ONCE PRN (Reason: Congestion) simethicone [Anti-Gas Ultra Strength] 180 mg capsule 180 mg PO BID PRN (Reason: gas relief) acetaminophen 650 mg tablet extended release 1,300 mg PO BID cholecalciferol (vitamin D3) 2,000 unit tablet 2,000 units PO QAM (DME) Grab Bars See Rx Instructions .Route .MEDSUPPLY Qty: 2 0RF Rx Instructions: Grab bars x2 installed in shower for prevention of falls Flexitol 25 % cream 1 applic topical DAILY polyethylene glycol 3350 17 gram/dose powder 17 g PO DAILY multivitamin Tablet 1 tab PO QAM lidocaine HCl [Aspercreme (lidocaine HCl)] 4 % Cream 1 applic topical BID PRN (Reason: pain) Citrucel 500 mg Tablet 500 mg PO BID Patient Comments: morning and lunch cyanocobalamin (vitamin B-12) [Vitamin B-12] 1,000 mcg Tablet 1,000 mcg PO Q2D Patient Comments: takes in the am Citrucel (sucrose) Powder 1 tbsp PO HS [id number] pepper 125 mg-6 mg- 50 mcg Tablet,Chewable 1 tab PO TID Rx Instructions: w/meals Pataday Once Daily Relief 0.7 % drops 1 drp ophthalmic (eye) QAM PRN (Reason: dry, itchy eyes) biotin 10 mg Tablet 300 mg PO DAILY Referrals Referrals: Earle Thompson DO [Primary Care Provider] - Discharge Problem: Fall Qualifiers: Encounter type: initial encounter Qualified Code(s): W19.XXXA - Unspecified fall, initial encounter Acute knee pain Qualifiers: Laterality: bilateral Qualified Code(s): M25.561 - Pain in right knee; M25.562 - Pain in left knee Leukocytosis Qualifiers: Leukocytosis type: unspecified Qualified Code(s): D72.829 - Elevated white blood cell count, unspecified
--- NOTE | 2024-12-26 09:10 | XRay Report ---
XR knee RT 3V CLINICAL HISTORY: knee pain . Fall. COMPARISON: None FINDINGS: There is moderate osteoarthritis. There is osteopenia. No fracture or dislocation seen. IMPRESSION: No fracture seen. ACT 112: Negative or not required by law. Electronically signed by: Jag Daugherty M.D. 12/26/2024 9:08 AM
--- NOTE | 2024-12-26 09:11 | XRay Report ---
XR knee LT 3V CLINICAL HISTORY: knee pain . Fall. COMPARISON: None FINDINGS: There is moderate osteoarthritis. There is osteopenia. No fracture or dislocation. IMPRESSION: No fracture seen. ACT 112: Negative or not required by law. Electronically signed by: aJg Daugherty M.D. 12/26/2024 9:09 AM
[2024-12-26 09:58] LABS: Alanine Aminotransferase 18.0 U/L (7-52); Albumin Globulin Ratio 1.8 (0.9-2); Alkaline Phosphatase 79.0 U/L (34-104); Anion Gap 9.0 (3-11); Bilirubin,Total 0.8 mg/dl (0.2-1.0); Blood Urea Nitrogen 36.0 mg/dl (6-23); Calcium 10.4 mg/dl (8.6-10.3); Carbon Dioxide 26.0 mmol/L (21-32); Chloride 100.0 mmol/L (98-107); Creatinine Clr Calc Pharmacy 92.6 ml/min; Globulin 2.6 gm/dl (2.5-4.0); Glucose 149.0 mg/dl (70-99(Fasting)); Lipase 9.0 U/L (11-82); Potassium 3.6 mmol/L (3.5-5.1); Sodium 135.0 mmol/L (136-145); Total Protein 7.2 gm/dl (6.0-8.3)
[2024-12-26 10:01] LABS: Hematocrit (blood only) 38.5 % (37.0-47.0); Hemoglobin 13.3 g/dl (12.0-16.0); Mean Corpuscular Hemoglobin 32.0 pg (25.0-34.0); Mean Corpuscular Volume 92.8 fL (80.0-100.0); Platelet Count 207 K/uL (130-400); RDW Standard Deviation 44.8 fL (36.4-46.3); Red Blood Count 4.15 M/uL (4.20-5.40); White Blood Count 34.62 K/ul (4.8-10.8)
[2024-12-26 10:25] LABS: Immature Granulocytes # (auto) 0.22 K/uL (0.01-0.20); Immature Granulocytes % (auto) 0.6 %
[2024-12-26] MEDS: SODIUM CHLORIDE 0.9% 1,000 ML IV ONE (10:54)
[2024-12-26 11:14] LABS: Creatine Kinase 266.0 U/L (26-192)
--- NOTE | 2024-12-26 11:57 | History & Physical Report ---
Date of Service December 26, 2024 Assessment & Plan (1) Fall: (2) Leukocytosis: (3) Acute knee pain: (4) Venous insufficiency: (5) Ambulatory dysfunction: Plan #Fall - Given NS maintenance fluids in ED - Bilateral knee X-rays unremarkable - CK 266, repeat in AM - Patient is unable to ambulate, PT/OT ordered Leukocytosis - WBC 34.62, believe this is reactive to fall, will trend - Previous WBC ranging 12-15 - Ordered UA, ESR, CRP, procal, peripheral smear to r/o source of infection - CBC with diff in AM - Chest XR ordered, pending Chronic venous insufficiency - Significant bilateral lower extremity edema, patient takes HCTZ 25mg at home to decrease swelling, continue Mitral regurgitation - Order EKG and ECHO to assess heart function - Echo 02/25 shows EF 55-60%, regurgitation, aortic sclerosis History of Present Illness Chief Complaint: Fall Primary Care Provider: Earle Thompson DO Ms. Fabian is an 89 y.o. F with past medical history of chronic venous insufficiency, chronic lymphocytic leukemia in remission, mitral regurgitation, aortic valve sclerosis, and chronic low back pain who is admitted due to fall. Reports she sat on her geriatric commode, however the wheels on the commode malfunctioned or got stuck in her shoes, which caused her to fall forward on her knees. Denies hitting her head. She lives independently in apartment complex but lives alone. She reports she was on the ground for 4 hours because she wasn't able to pull herself up. Eventually, neighbor heard her and was able to call 911. Reports bilateral knee pain but denies pain elsewhere. Denies dizziness, chest pain, SOB prior to fall. Denies history of previous falls. She is not on blood thinner. Denies cardiac history. Denies cough, fevers, chest pain, sore throat, chills today. Denies recent sick contacts. Reports regular bowel movements. Denies urinary symptoms. No other acute concerns. Allergies Allergy/AdvReac Type Severity Reaction Status Date / Time mold Allergy Intermediate Congestion Verified 12/26/24 09:46 adhesive Allergy Mild Rash Verified 12/26/24 09:46 dexamethasone Allergy Mild Swelling Verified 12/26/24 09:46 prednisone Allergy Mild Swelling Verified 12/26/24 09:46 guaifenesin [From Mucinex] Allergy Unknown Unknown Verified 12/26/24 09:46 NSAIDS (Non-Steroidal AdvReac Intermediate Breakthrough Verified 12/26/24 09:46 Anti-Inflamma bleeding, anemia, "burning off the abdomen" calcitriol AdvReac Mild Headache Verified 12/26/24 09:46 celecoxib [From Celebrex] AdvReac Mild decreased Verified 12/26/24 09:46 urine flow duloxetine AdvReac Mild "Over Verified 12/26/24 09:46 eating" pantoprazole AdvReac Mild Digestive Verified 12/26/24 09:46 issues pregabalin [From Lyrica] AdvReac Mild Confusion Verified 12/26/24 09:46 diclofenac AdvReac Unknown Unknown Verified 12/26/24 09:46 Home Medications Medication Instructions Recorded Confirmed Type acetaminophen 650 mg 1,300 mg PO BID 02/06/19 12/26/24 History tablet,extended release cholecalciferol (vitamin D3) 50 2,000 units PO QAM 02/06/19 12/26/24 History mcg (2,000 unit) tablet simethicone 180 mg capsule 180 mg PO BID PRN gas relief 08/03/22 12/26/24 History (Anti-Gas Ultra Strength) sodium chloride 0.65 % nasal spray 1 spray intranasal ONCE PRN 08/03/22 12/26/24 History aerosol (Saline Nasal) Congestion lidocaine HCl 4 % topical cream 1 applic topical BID PRN pain 09/25/22 12/26/24 History (Aspercreme (lidocaine HCl)) multivitamin 1 tab PO QAM 09/25/22 12/26/24 History glucosamine 500 mg-chondroitin 3 cap PO QAM 02/27/23 12/26/24 History 116.7 mg-herbal no.270 133.3 mg capsule omega-3 fatty acids 1,250 mg 2,500 mg PO QAM 02/27/23 12/26/24 History capsule cyanocobalamin (vitamin B-12) 1,000 mcg PO Q2D 08/22/23 12/26/24 History 1,000 mcg tablet (Vitamin B-12) methylcellulose (with sugar) oral 1 tbsp PO HS 08/22/23 12/26/24 History powder (Citrucel (sucrose) oral powder) olopatadine 0.7 % eye drops 1 drp ophthalmic (eye) QAM PRN 08/22/23 12/26/24 History (Pataday Once Daily Relief) dry, itchy eyes turmeric 125 mg-young root 6 1 tab PO TID 08/22/23 12/26/24 History mg-black pepper 50 mcg chewable tablet methylcellulose (laxative) 500 mg 500 mg PO BID 09/11/23 12/26/24 History tablet (Citrucel) polyethylene glycol 3350 17 17 g PO DAILY 01/08/24 12/26/24 History gram/dose oral powder compress.stocking,knee,reg,med #2 ea 06/13/24 10/23/24 Rx hydrochlorothiazide 25 mg tablet 25 mg PO QAM #90 tabs 06/24/24 12/26/24 Rx urea 25 %-allantoin-vitamin E 1 applic topical DAILY 08/05/24 12/26/24 History topical cream (Flexitol) amoxicillin 500 mg capsule 2,000 mg (4 x 500 mg) PO ONCE #4 09/01/24 12/26/24 Rx caps Grab Bars #2 ea 09/05/24 10/23/24 Rx biotin 10 mg tablet 300 mg PO DAILY 12/26/24 12/26/24 History Past Med/Surg History Problem List (Updated 12/26/24 @ 13:37 by Jhonatan Lares DO) Leukocytosis (Acute) Ambulatory dysfunction (Acute) Acute knee pain (Acute) Fall (Acute) Nocturnal hypoxemia Venous insufficiency Incontinence overflow, urine Scar of nose Chronic lymphocytic leukemia Follows with Dr. Jonathon Alvarenga at this time per patient Status post reverse total replacement of right shoulder (~11/2023) Chronic pain Aortic valve sclerosis Mitral regurgitation Worsening dysgraphia Chronic low back pain Medical History Rotator cuff arthropathy of right shoulder Cervical radiculopathy Cervical spinal stenosis Urinary incontinence Deviated nasal septum Statin intolerance IBS (irritable bowel syndrome) LPRD (laryngopharyngeal reflux disease) Osteoarthritis, generalized Secondary hyperparathyroidism Rotator cuff arthropathy of both shoulders Tremor Gait disorder Anxiety Lymphedema Bilateral tinnitus Hammer toes of both feet Bilateral sensorineural hearing loss Fibromyalgia Hypercholesterolemia Obstructive sleep apnea Osteoporosis Spinal stenosis Cyst of right kidney Hypertension Peripheral neuropathy Premature ventricular contractions Scoliosis Atrial flutter Surgical History Hx of left cataract extraction Status post reverse total replacement of left shoulder Hx of right cataract extraction H/O esophagogastroduodenoscopy H/O colonoscopy S/P cholecystectomy S/P tonsillectomy and adenoidectomy S/P ovarian cystectomy S/P dilation and curettage Family History Sister Breast cancer Father Congestive heart failure Mother Coronary heart disease Hypertension Family/Other Cancer Uncle Kidney malignancy Brother Prostate cancer Grandfather Prostate cancer Other Hx of breast cancer No family history of adverse response to anesthesia Denies family history of Colon cancer Ovarian cancer Myocardial infarction Colorectal cancer Social History Smoking Status: Never smoker Second Hand Exposure: No; Do You Dip or Chew Tobacco: No; Tobacco Cessation Education Requested by Patient: No Hx Alcohol Use: No Hx Substance Use: No Preferred Language: Uzbek Communication Ability: Effective Visual Impairment: Limited Hearing Ability: Hard of Hearing [employer] Manager Required: No Beliefs That Will Affect Care: None marital status: / Current Living Situation: Alone Current Living Situation Comment: apartment with senior apartments current occupational status: retired How many Children do You have: 4 How many Children do You have Comment: 4 boys Other Information That Helps Us Care for You: No Feels Safe at Home: Yes Safety Concerns: Feels Safe At This Time Childhood Exposure to Second-Hand Smoke: No Diet: regular Diet Comment: dash diet caffeine: No during the past year weight has: remained stable Dental Care, Regularly: Yes Physical Activity Frequency: Does not Exercise Seatbelt Use: always Sunscreen Use: Yes Do you think of yourself as: straight/heterosexual Assistive Devices: Bedside Commode and Walker Review of Systems Constitutional: as per Subjective / HPI Physical Exam Constitutional: WD/WN, vitals as above Respiratory: normal respiratory effort Auscultation: + wheezes (bilaterally, mild) Cardiovascular: Rate/Rhythm: regular rate Heart Sounds: + murmur (systolic crescendo-decrescendo murmur) Gastrointestinal (Abdomen): Inspection/Auscultation: normal bowel sounds Percussion/Palpation: + abdomen tender (mild, diffuse) Skin: bruises along dorsal L and R upper extremities Psychiatric: A+Ox3, euthymic affect Lymphatic: bilateral lower extremity edema up till above knees Results & Data Results & Data Vital Signs (Past 12 Hours) Vital Signs Temp Pulse Pulse Resp BP BP Pulse Ox 12/26/24 10:30 82 16 164/81 H 92 12/26/24 09:04 74 12/26/24 08:43 100 12/26/24 08:43 37.2 C 77 14 165/58 H 100 O2 Del Method 12/26/24 10:30 Room Air 12/26/24 09:04 12/26/24 08:43 Room Air 12/26/24 08:43 Room Air Supervising Physician Co-Signing Physician Notes Patient seen and examined, chart reviewed, case discussed with Dr. Burrows and I agree with the assessment and plan as above. Patient admitted after having a fall. Patient had a mechanical fall but was unable to get back up. Patient was yelling asking for help but was in an awkward position. Thankfully her neighbr came home and heard her and brought her in. Now with knee pain and back pain. WIll continue tylenol and supportive care. will consult PT/OT will likely need placement as discharge home does not appear to be safe. Resident Activity Tracking Resident Involvement: Resident Care Provided Care Provided: Adult Hospital Medicine (1) Fall Encounter type: initial encounter Qualified Code(s): W19.XXXA - Unspecified fall, initial encounter (2) Leukocytosis Leukocytosis type: unspecified Qualified Code(s): D72.829 - Elevated white blood cell count, unspecified (3) Acute knee pain Laterality: bilateral Qualified Code(s): M25.561 - Pain in right knee; M25.562 - Pain in left knee
[2024-12-26] MEDS: ACETAMINOPHEN 325 MG TAB PO PRN (16:26)
--- NOTE | 2024-12-26 16:37 | XRay Report ---
Clinical History: Abdominal pain and bloating Technique: 5 views of the chest and abdomen were obtained Findings: There are no definite pulmonary infiltrates. The heart size is within normal limits. No pleural effusion or pneumothorax is seen. There is no definite pulmonary nodule. There are bilateral shoulder replacements. There is thoracic and lumbar scoliosis and degenerative disc disease. Surgical clips are seen suggestive of prior cholecystectomy. There is moderate to severe constipation. Gas is seen within prominent small and large bowel loops that may be due to ileus. Impression: 1. No definite pulmonary pathology 2. Constipation and suspected ileus Electronically signed by Fermín Sanabria 12-26-2024 4:37 PM
[2024-12-26 17:54] LABS: Appearance Urine Clear (Clear); Bacteria Urine Automated None Seen (None Seen); Cast Urine Automated 0-2 /lpf (0-2); Epithelial Cell Urine Auto 0-2 /hpf (0-2); Glucose Urine UA Negative (Negative); RBC Urine Automated 0-2 /hpf (0-2); WBC Urine Automated 0-5 /hpf (0-5)
[2024-12-26] MEDS: ACETAMINOPHEN 500 MG TAB PO PRN (19:52)
[2024-12-26] MEDS ORDERED: POLYETHYLENE (MIRALAX) 17 GM PACK PO STA (20:38)
[2024-12-26] MEDS: MAGNESIUM SULFATE / D5W 1 GM/100 ML BAG IV SCH (21:03)
[2024-12-26] MEDS: ENOXAPARIN INJ 40 MG/0.4 ML SYR SQ SCH (21:08)
[2024-12-27 06:42] LABS: Hematocrit (blood only) 34.0 % (37.0-47.0); Hemoglobin 11.5 g/dl (12.0-16.0); Mean Corpuscular Hemoglobin 31.9 pg (25.0-34.0); Mean Corpuscular Volume 94.4 fL (80.0-100.0); Platelet Count 172 K/uL (130-400); RDW Standard Deviation 46.9 fL (36.4-46.3); Red Blood Count 3.60 M/uL (4.20-5.40); White Blood Count 17.70 K/ul (4.8-10.8)
[2024-12-27 07:12] LABS: Anion Gap 5.0 (3-11); Blood Urea Nitrogen 19.0 mg/dl (6-23); Calcium 8.8 mg/dl (8.6-10.3); Carbon Dioxide 29.0 mmol/L (21-32); Chloride 101.0 mmol/L (98-107); Creatine Kinase 486.0 U/L (26-192); Creatinine Clr Calc Pharmacy 104.2 ml/min; Glucose 102.0 mg/dl (70-99(Fasting)); Potassium 3.5 mmol/L (3.5-5.1); Sodium 135.0 mmol/L (136-145)
[2024-12-27 07:14] LABS: Immature Granulocytes # (auto) 0.09 K/uL (0.01-0.20); Immature Granulocytes % (auto) 0.5 %
[2024-12-27] MEDS: hydroCHLOROthiazide 25 MG TAB PO SCH (07:56)
[2024-12-27] MEDS: POLYETHYLENE (MIRALAX) 17 GM PACK PO SCH (07:56)
--- NOTE | 2024-12-27 08:05 | Hospitalist Progress Note ---
Date of Service December 27, 2024 Assessment & Plan (1) Fall: (2) Leukocytosis: (3) Acute knee pain: (4) Venous insufficiency: (5) Ambulatory dysfunction: Plan #Fall - Given NS maintenance fluids in ED - Bilateral knee X-rays unremarkable - CK 266, repeat 486 - Patient is unable to ambulate, PT/OT ordered - Tylenol 650mg QID for pain PRN - Tramadol 25mg PO for breakthrough pain + 4% Lidocaine cream Leukocytosis - WBC 34.62, repeat WBC 17.7 - Previous WBC ranging 12-15 - UA clean (trace blood, trace LE, SG 1.019) - ESR 8, procal 0.8 - CRP mildly elevated at 1.58, likely reactive to fall - Peripheral smear pending - Repeat CBC with diff in AM - Chest XR - no definite pulmonary pathology; constipation, suspected ileus Chronic venous insufficiency - Significant bilateral lower extremity edema, patient takes HCTZ 25mg at home to decrease swelling, continue Mitral regurgitation - Order EKG and ECHO to assess heart function - EKG NS - ECHO pending - Echo 02/25 shows EF 55-60%, regurgitation, aortic sclerosis Dispo: med-surg VTE: Lovenox Diet: Heart Healthy Code status: full Admission and Anticipated Discharge Date Admission Date: December 26, 2024 Supervising Physician Co-Signing Physician Notes Patient seen and examined, chart reviewed, case discussed with Dr. Burrows and I agree with the assessment and plan as above. Patient admitted after a mechanical fall and weakness. Vitals stable. Exam was benign PT/OT consulted. Lidocaine added, diclofenac gel also added. Placed on tylenol QID. will likely need placement as discharge home does not appear to be safe. Subjective Ms. Fabian is an 89 y.o. F with PMH of chronic venous insufficiency, chronic lymphocytic leukemia in remission, mitral regurgitation, aortic valve sclerosis, and chronic low back pain who is admitted due to fall. Patient states she is in a lot of pain, specifically in her mid-back and bilateral knees. Reports nursing tried to help her up yesterday but she has not been able to sit up or ambulate. Denies lightheadedness or dizziness. Last BM was yesterday and was regular. Reports she takes Miralax and Citrucel at home and would like to continue that here. Denies SOB, chest pain. Review of Systems Constitutional: as per Subjective / HPI Physical Exam Constitutional: WD/WN, vitals as above Respiratory: normal respiratory effort Auscultation: + wheezes (bilaterally, mild) Cardiovascular: Rate/Rhythm: regular rate Heart Sounds: + murmur (systolic crescendo-decrescendo murmur) Gastrointestinal (Abdomen): Inspection/Auscultation: normal bowel sounds Percussion/Palpation: + abdomen tender (mild, diffuse) Skin: Bruising along dorsal aspect of bilateral upper extremities Psychiatric: A+Ox3, euthymic affect Lymphatic: significant LE edema (baseline) bilaterally Results & Data Results & Data Vital Signs (Past 12 Hours) Vital Signs Temp Pulse Resp BP Pulse Ox O2 Del Method 12/27/24 07:00 36.5 C 61 18 109/60 98 Room Air Resident Activity Tracking Resident Involvement: Resident Care Provided Care Provided: Adult Hospital Medicine (1) Fall Encounter type: initial encounter Qualified Code(s): W19.XXXA - Unspecified fall, initial encounter (2) Leukocytosis Leukocytosis type: unspecified Qualified Code(s): D72.829 - Elevated white blood cell count, unspecified (3) Acute knee pain Laterality: bilateral Qualified Code(s): M25.561 - Pain in right knee; M25.562 - Pain in left knee
[2024-12-27] MEDS ORDERED: POLYETHYLENE (MIRALAX) 17 GM PACK PO SCH (09:00)
[2024-12-27] MEDS ORDERED: LIDOCAINE 4% CREAM 15 GM TUBE EXT PRN (11:36)
[2024-12-27] MEDS: ACETAMINOPHEN 325 MG TAB PO SCH ×2 (11:44→17:13)
[2024-12-27] MEDS: PSYLLIUM HUSK 4GM PACKET PO ONE (21:28)
[2024-12-27] MEDS: DICLOFENAC SOD 1% GEL 100 GM TUBE EXT SCH (21:32)
[2024-12-27] MEDS: NON-FORMULARY PATIENT'S OWN MED PO SCH (21:32)
--- NOTE | 2024-12-27 22:50 | XCELERA ---
[id number]
[2024-12-28 06:07] LABS: Hematocrit (blood only) 32.8 % (37.0-47.0); Hemoglobin 11.4 g/dl (12.0-16.0); Mean Corpuscular Hemoglobin 32.7 pg (25.0-34.0); Mean Corpuscular Volume 94.0 fL (80.0-100.0); Platelet Count 157 K/uL (130-400); RDW Standard Deviation 46.3 fL (36.4-46.3); Red Blood Count 3.49 M/uL (4.20-5.40); White Blood Count 15.27 K/ul (4.8-10.8)
[2024-12-28 06:33] LABS: Anion Gap 5.0 (3-11); Blood Urea Nitrogen 15.0 mg/dl (6-23); Calcium 8.8 mg/dl (8.6-10.3); Carbon Dioxide 29.0 mmol/L (21-32); Chloride 100.0 mmol/L (98-107); Creatinine Clr Calc Pharmacy 138.9 ml/min; Glucose 105.0 mg/dl (70-99(Fasting)); Potassium 3.7 mmol/L (3.5-5.1); Sodium 134.0 mmol/L (136-145)
[2024-12-28 06:39] LABS: Immature Granulocytes # (auto) 0.07 K/uL (0.01-0.20); Immature Granulocytes % (auto) 0.5 %; Polychromasia 1+; Smudge Cells Present
--- NOTE | 2024-12-28 10:46 | Hospitalist Progress Note ---
Date of Service December 28, 2024 Assessment & Plan (1) Fall: (2) Leukocytosis: (3) Acute knee pain: (4) Venous insufficiency: (5) Ambulatory dysfunction: Plan Ms. Fabian is an 89 y.o. F with PMH of chronic venous insufficiency, chronic lymphocytic leukemia in remission, mitral regurgitation, aortic valve sclerosis, and chronic low back pain who is admitted due to fall. #Fall - Given NS maintenance fluids in ED - Bilateral knee X-rays unremarkable - CK 266, repeat 486 - Unable to ambulate, PT/OT to continue to see patient - Tylenol 650mg QID for pain PRN - Tramadol 25mg PO for breakthrough pain + 4% Lidocaine cream, ice to affected areas as needed Leukocytosis - WBC 34.62, repeat WBC 17.7 - Previous WBC ranging 12-15 - UA clean (trace blood, trace LE, SG 1.019) - ESR 8, procal 0.8 - CRP mildly elevated at 1.58, likely reactive to fall - Peripheral smear pending - Repeat CBC with diff in AM - Chest XR - no definite pulmonary pathology; constipation, suspected ileus Chronic venous insufficiency - Significant bilateral lower extremity edema, patient takes HCTZ 25mg at home to decrease swelling, continue Mitral regurgitation - Order EKG and ECHO to assess heart function - EKG NS - ECHO pending - Echo 02/25 shows EF 55-60%, regurgitation, aortic sclerosis Dispo: med-surg VTE: Lovenox Diet: Heart Healthy Code status: full Admission and Anticipated Discharge Date Admission Date: December 27, 2024 Supervising Physician Co-Signing Physician Notes Patient seen and examined, chart reviewed, case discussed with Dr. Burrows and I agree with the assessment and plan as above. Patient admitted after a mechanical fall and weakness. Vitals stable. Exam was benign PT/OT consulted: will need placement. Continue: Lidocaine, diclofenac gel and on tylenol QID. will need placement as discharge home does not appear to be safe. Subjective Ms. Fabian is an 89 y.o. F with PMH of chronic venous insufficiency, chronic lymphocytic leukemia in remission, mitral regurgitation, aortic valve sclerosis, and chronic low back pain who is admitted due to fall. Patient states she has continued pain in mid-back and bilateral knees. PT/OT came to see her today. She states she was not able to sit on her own. Denies lightheadedness or dizziness. Last BM was yesterday and was regular. Reports she takes Miralax and Citrucel at home and would like to continue that here. Denies SOB, chest pain. Review of Systems Constitutional: as per Subjective / HPI Physical Exam Constitutional: WD/WN, vitals as above Respiratory: normal respiratory effort Auscultation: + wheezes (bilaterally, mild) Cardiovascular: Rate/Rhythm: regular rate Heart Sounds: + murmur (systolic crescendo-decrescendo murmur) Gastrointestinal (Abdomen): Inspection/Auscultation: normal bowel sounds Percussion/Palpation: + abdomen tender (mild, diffuse) Psychiatric: A+Ox3, euthymic affect Results & Data Results & Data Vital Signs (Past 12 Hours) Vital Signs Temp Pulse Resp BP Pulse Ox O2 Del Method 12/28/24 07:17 37.1 C 73 18 138/76 95 Room Air Resident Activity Tracking Resident Involvement: Resident Care Provided Care Provided: Adult Hospital Medicine (1) Fall Encounter type: initial encounter Qualified Code(s): W19.XXXA - Unspecified fall, initial encounter (2) Leukocytosis Leukocytosis type: unspecified Qualified Code(s): D72.829 - Elevated white blood cell count, unspecified (3) Acute knee pain Laterality: bilateral Qualified Code(s): M25.561 - Pain in right knee; M25.562 - Pain in left knee
--- NOTE | 2024-12-29 06:16 | Electrocardiogram Report ---
Test Reason : Blood Pressure : */* mmHG Vent. Rate : 62 BPM Atrial Rate : 62 BPM P-R Int : 160 ms QRS Dur : 86 ms QT Int : 436 ms P-R-T Axes : -16 -29 8 degrees QTcB Int : 442 ms Poor data quality, interpretation may be adversely affected Normal sinus rhythm When compared with ECG of 17-Oct-2023 13:17, No significant change was found Confirmed by Simone Moon ([id number]) on 12/29/2024 6:16:05 AM Referred By: REFERRED SELF Confirmed By: Simone Moon
[2024-12-29 07:52] LABS: Hematocrit (blood only) 34.3 % (37.0-47.0); Hemoglobin 11.9 g/dl (12.0-16.0); Mean Corpuscular Hemoglobin 33.1 pg (25.0-34.0); Mean Corpuscular Volume 95.5 fL (80.0-100.0); Platelet Count 185 K/uL (130-400); RDW Standard Deviation 45.8 fL (36.4-46.3); Red Blood Count 3.59 M/uL (4.20-5.40); White Blood Count 14.85 K/ul (4.8-10.8)
[2024-12-29 08:07] LABS: Anion Gap 5.0 (3-11); Blood Urea Nitrogen 10.0 mg/dl (6-23); Calcium 9.2 mg/dl (8.6-10.3); Carbon Dioxide 32.0 mmol/L (21-32); Chloride 98.0 mmol/L (98-107); Creatinine Clr Calc Pharmacy 126.3 ml/min; Glucose 101.0 mg/dl (70-99(Fasting)); Potassium 4.4 mmol/L (3.5-5.1); Sodium 135.0 mmol/L (136-145)
[2024-12-29 08:47] LABS: Immature Granulocytes # (auto) 0.06 K/uL (0.01-0.20); Immature Granulocytes % (auto) 0.4 %
--- NOTE | 2024-12-29 09:14 | Billing Data ---
Date of Service December 26, 2024 Coding Level of Care Code 98258 INT INP/OBS CARE
--- NOTE | 2024-12-29 09:17 | Billing Data ---
Date of Service December 27, 2024 Coding Level of Care Code 34102 SUB INP/OBS CARE MIN
--- NOTE | 2024-12-29 09:20 | Billing Data ---
Date of Service December 28, 2024 Coding Level of Care Code 72217 SUB INP/OBS CARE
[2024-12-29] MEDS ORDERED: CALCIUM POLYCARBOPHIL 625MG TAB PO PRN (10:16)
[2024-12-29] MEDS: ACETAMINOPHEN 500 MG TAB PO STA (12:59)
[2024-12-29] MEDS: MAGNESIUM HYDROXIDE SUSP 30 ML UDC PO ONE (13:00)
[2024-12-29] MEDS: LIDOCAINE 5% 1 PATCH TD STA (13:37)
--- NOTE | 2024-12-29 16:52 | Hospitalist Progress Note ---
Date of Service December 29, 2024 Assessment & Plan (1) Fall: (2) Leukocytosis: (3) Acute knee pain: (4) Venous insufficiency: (5) Ambulatory dysfunction: Plan Ms. Fabian is an 89 y.o. F with PMH of chronic venous insufficiency, chronic lymphocytic leukemia in remission, mitral regurgitation, aortic valve sclerosis, and chronic low back pain who is admitted due to fall. #Fall Given NS maintenance fluids in ED Bilateral knee X-rays unremarkable CK 266, repeat 486 Unable to ambulate PT/OT evaluations appreciated Recommended acute rehab on 12/29 CM following; referrals made to [facility] Tylenol 650mg QID scheduled for pain Tramadol 25mg PO for breakthrough pain + 4% Lidocaine cream, ice to affected areas as needed Added on lidocaine patch on 12/29 PRN #Leukocytosis | H/o CLL WBC 34.62, repeat WBC 17.7 Previous WBC ranging 12-15 UA clean (trace blood, trace LE, SG 1.019) ESR 8 procal 0.8 CRP mildly elevated at 1.58, likely reactive to fall Peripheral smear ordered: Lymphocytosis consistent with CLL history Neutrophilia suspected to be reactive in nature Chest XR - no definite pulmonary pathology; constipation, suspected ileus #Constipation Milk of magnesia PRN #Chronic venous insufficiency Significant bilateral lower extremity edema, patient takes HCTZ 25mg at home to decrease swelling, continue #Mitral regurgitatio EKG NS Echocardiogram on 12/27/2024 revealed no significant changes from prior study; EF 65-to 70% without regional wall motion abnormalities Dispo: Continued stay on [facility] Admission and Anticipated Discharge Date Admission Date: December 27, 2024 Supervising Physician Co-Signing Physician Notes Patient seen and examined, chart reviewed, case discussed with Dr. Burrows and I agree with the assessment and plan as above. Patient admitted after a mechanical fall and weakness. Vitals stable. Exam was benign PT/OT consulted: will need placement. Continue: Lidocaine, diclofenac gel and on tylenol QID. will need placement as discharge home does not appear to be safe. Subjective Mrs. Fabian reports she is still feeling unwell today. She reports she feels constipated, and did have a small BM this morning, but normally has larger ones. She was able to sit up on the side of the bed with physical therapy, but otherwise appears largely been bed confined. She ambulates with a rollator at home. She believes that her fall was due to lymphedema in her legs as well as her neuropathy. Patient reports she recently had a left knee injection, but her right knee is the one that is bothering her today. She also has significant back pain, and shoulder pain bilaterally. At this time, she reports her pain is "everywhere" and she rates it a 5 out of 10 at rest; 10 out of 10 with movements. ROS: Patient endorses constipation, joint pain, abdominal pain, right knee pain, back pain, and shoulder pain bilaterally. Patient denies fever, chills, headache, chest pain, SOB, N/V/D, changes in urin arnav or bowel habits, or numbness/tingling the arms or legs. Review of Systems Review of Systems: See HPI above Physical Exam Physical Exam: General: No acute distress; anxious; non-toxic appearing; frail appearing; cooperative; SpO2 95% on RA HEENT: normocephalic, atraumatic; no scleral icterus; PERRLA; vision and hearing intact Neck: supple; no lymphadenopathy; trachea midline Skin: warm, dry without signs of tenting; no cyanosis; no rashes, bruising, lesions, or erythema noted CV: chest wall NTP; RRR; S1/S2 normal; no murmurs/rubs/gallops; pulses intact and symmetric at radial, DP, and PT Lungs: no acute respiratory distress; symmetrical chest wall expansion; clear breath sounds across all lung harris w/o adventitious sounds; no wheezing ABD: Soft, NTP; BS present; no rebound/guarding; no distention MSK: no tics or fasciculations; nonpitting edema/lymphedema noted in the lower extremities bilaterally, nonerythematous; bruising noted on the knees bilaterally; knees are TTP, and active ROM elicits pain Neuro: A&Ox3; normal mood and affect; fluent speech; no focal deficits appreciated; sensation intact and symmetric in all extremities Results & Data Results & Data Vital Signs (Past 12 Hours) Vital Signs Temp Pulse Pulse Resp BP Pulse Ox O2 Del Method 12/29/24 11:36 36.6 C 70 18 111/67 95 Room Air 12/29/24 07:07 36.6 C 70 18 126/77 98 Room Air PG Care Time/CCT Total # of Minutes Spent Total Time Spent with Patient: Total time spent is greater than 50% in coordination of care (as documented) at patient's floor/unit and/or counseling patient: Coding [place] [address] SUB INP/OBS CARE MIN Patient Type Established History Comprehensive Exam Comprehensive Medical Decision Making Moderate Complexity Diagnoses Fall W19.XXXA Encounter type: initial encounter Leukocytosis D72.829 Leukocytosis type: unspecified Acute knee pain M25.561; M25.562 Laterality: bilateral Venous insufficiency I87.2 Ambulatory dysfunction R26.2 (1) Fall Encounter type: initial encounter Qualified Code(s): W19.XXXA - Unspecified fall, initial encounter (2) Leukocytosis Leukocytosis type: unspecified Qualified Code(s): D72.829 - Elevated white blood cell count, unspecified (3) Acute knee pain Laterality: bilateral Qualified Code(s): M25.561 - Pain in right knee; M25.562 - Pain in left knee
[2024-12-29] MEDS ORDERED: ACETAMINOPHEN 500 MG TAB PO SCH (20:00)
[2024-12-29] MEDS: ACETAMINOPHEN 325 MG TAB PO SCH (20:55)
[2024-12-29] MEDS: REMOVE LIDODERM PATCH SCH (21:10)
--- NOTE | 2024-12-30 15:12 | Hospitalist Progress Note ---
"Date of Service December 30, 2024 Assessment & Plan (1) Fall: (2) Leukocytosis: (3) Acute knee pain: (4) Venous insufficiency: (5) Ambulatory dysfunction: Plan Ms. Fabian is an 89 y.o. F with PMH of chronic venous insufficiency, chronic lymphocytic leukemia in remission, mitral regurgitation, aortic valve sclerosis, and chronic low back pain who is admitted due to fall. Medically stable for discharge. Accepted by [facility] on 12/30. Awaiting insurance Auth. #Fall Given NS maintenance fluids in ED Bilateral knee X-rays unremarkable Unable to ambulate PT/OT evaluations appreciated Recommended acute rehab on 12/29 CM following; [facility] is unable to accept patient; referrals made to [facility] in [place] [facility] Accepted by [facility] on 12/30, awaiting insurance Auth Tylenol 650mg QID scheduled for pain Tramadol 25mg PO for breakthrough pain + 4% Lidocaine cream, ice to affected areas as needed Added on lidocaine patch on 12/29 PRN #Leukocytosis | H/o CLL WBC 34.62, repeat WBC 17.7 Previous WBC ranging 12-15 UA clean (trace blood, trace LE, SG 1.019) ESR 8 procal 0.8 CRP mildly elevated at 1.58, likely reactive to fall Peripheral smear ordered: Lymphocytosis consistent with CLL history Neutrophilia suspected to be reactive in nature Chest XR - no definite pulmonary pathology; constipation, suspected ileus #Constipation Milk of magnesia PRN #Chronic venous insufficiency Significant bilateral lower extremity edema, patient takes HCTZ 25mg at home to decrease swelling, continue #Mitral regurgitatio EKG NS Echocardiogram on 12/27/2024 revealed no significant changes from prior study; EF 65-to 70% without regional wall motion abnormalities Dispo: Continued stay on MedSurg Hopeful discharge to [facility] if insurance authorization is accepted Admission and Anticipated Discharge Date Admission Date: December 27, 2024 Subjective Mrs. Fbaian reports she slept fine last night, and is doing well this morning. She has had no difficulty with eating or drinking. She is glad to report that she had a bowel movement this morning at her bedside commode. Her main complaint is that she is still having pain in her knees which she rates a 5 out of 10 at baseline, and a 10 out of 10 with movements. She is unsure if the Voltaren gel helped her knees at all yesterday, and is unsure if the lidocaine patch helped her back. Overall, she reports she feels very similar to yesterday. She is hoping to do a bit more with PT today, as she has only been able to sit on the side of the bed with them, and still exhibits significant difficulty walking. ROS: Patient endorses knee pain bilaterally, lower back pain, shoulder pain bilaterally, and occasional numbness or tingling going down the legs. Patient denies fever, chills, night sweats, chest pain, SOB, cough, abdominal pain, N/V/D, burning with urination, or changes in urinary or bowel habits. Review of Systems Review of Systems: See HPI above Physical Exam Physical Exam: General: No acute distress; anxious; non-toxic appearing; frail appearing; cooperative; SpO2 96% on RA HEENT: normocephalic, atraumatic; no scleral icterus; PERRLA; vision and hearing intact Neck: supple; no lymphadenopathy; trachea midline Skin: warm, dry without signs of tenting; no cyanosis; no rashes, bruising, lesions, or erythema noted CV: chest wall NTP; RRR; S1/S2 normal; no murmurs/rubs/gallops; pulses intact and symmetric at radial, DP, and PT Lungs: no acute respiratory distress; symmetrical chest wall expansion; clear breath sounds across all lung harris w/o adventitious sounds; no wheezing ABD: Soft, NTP; BS present; no rebound/guarding; no distention MSK: no tics or fasciculations; nonpitting edema/lymphedema noted in the lower extremities bilaterally, nonerythematous; bruising noted on the knees bilaterally; knees are TTP, and active ROM elicits some pain Neuro: A&Ox3; normal mood and affect; fluent speech; no focal deficits appreciated; patient reports sensation is intact and symmetric in the lower EXTR bilaterally assessed via light touch Results & Data Results & Data Vital Signs (Past 12 Hours) Vital Signs Temp Pulse Resp BP Pulse Ox O2 Del Method 12/30/24 14:30 36.9 C 74 18 144/76 H 96 Room Air 12/30/24 07:59 36.6 C 77 16 120/69 97 Room Air 12/30/24 07:18 Room Air PG Care Time/CCT Total # of Minutes Spent Total Time Spent with Patient: Total time spent is greater than 50% in coordination of care (as documented) at patient's floor/unit and/or counseling patient: Coding [place] [address] SUB INP/OBS CARE Patient Type Established History Detailed Exam Detailed Medical Decision Making Low Complexity Diagnoses Fall W19.XXXA Encounter type: initial encounter Leukocytosis D72.829 Leukocytosis type: unspecified Acute knee pain M25.561; M25.562 Laterality: bilateral Venous insufficiency I87.2 Ambulatory dysfunction R26.2 (1) Fall Encounter type: initial encounter Qualified Code(s): W19.XXXA - Unspecified fall, initial encounter (2) Leukocytosis Leukocytosis type: unspecified Qualified Code(s): D72.829 - Elevated white blood cell count, unspecified (3) Acute knee pain Laterality: bilateral Qualified Code(s): M25.561 - Pain in right knee; M25.562 - Pain in left knee"
[2024-12-30] MEDS: MAGNESIUM HYDROXIDE SUSP 30 ML UDC PO PRN (21:15)
[2024-12-30] MEDS: MINERAL OIL ENEMA 133 ML BTL PR ONE (23:30)
--- NOTE | 2024-12-31 13:26 | XRay Report ---
XR ankle RT min 3V routine CLINICAL HISTORY: Fall; right ankle pain COMPARISON: None FINDINGS: There is osteopenia. There is an acute minimally displaced fracture at the distal fibula. There is a possible acute nondisplaced fracture at the medial malleolus. There is minimal lateral sub luxation of the tibiotalar joint. There is severe joint space narrowing with flattening of the dome o f the talus. There is pes planus. There is nonspecific irregularity at the anterior plantar aspect of the calcaneus, nondisplaced fracture of uncertain chronicity. IMPRESSION: 1. Minimally displaced acute fracture distal fibula. 2. Possible nondisplaced fracture medial malleolus. 3. Irregularity at the anterior plantar calcaneus could be chronic or could represent acute nondispla darren fracture. 4. Minimal lateral subluxation at the tibiotalar joint. ACT 112: Negative or not required by law. Electronically signed by: Jag Daugherty M.D. 12/31/2024 1:25 PM
--- NOTE | 2024-12-31 14:02 | Hospitalist Progress Note ---
"Date of Service December 31, 2024 Assessment & Plan (1) Fall: (2) Closed fracture of right distal fibula: (3) Leukocytosis: (4) Acute knee pain: (5) Venous insufficiency: (6) Ambulatory dysfunction: Plan Ms. Fabian is an 89 y.o. F with PMH of chronic venous insufficiency, chronic lymp hocytic leukemia in remission, mitral regurgitation, aortic valve sclerosis, and chronic low back pain who is admitted due to fall. Medically stable for discharge. Accepted by [facility] on 12/30. Awaiting insurance Auth. #Fall Given NS maintenance fluids in ED Bilateral knee X-rays unremarkable Unable to ambulate PT/OT evaluations appreciated Recommended acute rehab on 12/29 CM following; [facility] is unable to accept patient; [facility] Accepted by [facility] on 12/30 Insurance Auth accepted by [facility] on 12/31, however transport was delayed due to new finding of right distal fibular fracture (see below) Tylenol 650mg QID scheduled for pain Tramadol 25mg PO for breakthrough pain + 4% Lidocaine cream, ice to affected areas as needed Added on lidocaine patch on 12/29 PRN #Closed fracture of right distal fibula Right ankle x-ray revealed a minimally displaced acute fracture of the distal fibula, as well as a possible nondisplaced fracture of the medial malleolus Orthopedics consult appreciated Non-operative; WBAT Calf high ELIJAH stockings for swelling Plan for follow-up in 4 weeks Orthotics consult appreciated for walking boot Pain control (as above) #Leukocytosis | H/o CLL WBC 34.62, repeat WBC 17.7 Previous WBC ranging 12-15 UA clean (trace blood, trace LE, SG 1.019) ESR 8 procal 0.8 CRP mildly elevated at 1.58, likely reactive to fall Peripheral smear ordered: Lymphocytosis consistent with CLL history Neutrophilia suspected to be reactive in nature Chest XR - no definite pulmonary pathology; constipation, suspected ileus #Constipation Milk of magnesia PRN #Chronic venous insufficiency Significant bilateral lower extremity edema, patient takes HCTZ 25mg at home to decrease swelling, continue #Mitral regurgitatio EKG NS Echocardiogram on 12/27/2024 revealed no significant changes from prior study; EF 65-to 70% without regional wall motion abnormalities Dispo: Continued stay on MedSurg Patient's insurance authorization was accepted on 12/31; however, transport had to be canceled due to new finding of right distal fibula fracture Will plan for transport to [facility] on the morning of 01/01 Updated patient's son (Km) over the phone on 12/31. Admission and Anticipated Discharge Date Admission Date: December 27, 2024 Supervising Physician Co-Signing Physician Notes Attending Attestation - Chart reviewed, care plan d/w PA Moses Diaz. I agree w/ the phan components of his documentation. Appreciate orthopedic assistance for right ankle fracture. Walking boot needed; orthotics consulted. Check 25-OH vit D level am tomorrow. Jitendra Hodges MD Subjective Mrs. Fabian reports she is having much worse pain in her right ankle today when compared to yesterday. She reports that PT did try to get her up off the bed yesterday, and thinks that she might have made her ankle worse with walking on it yesterday. This ankle pain kept her up throughout the night, and she had difficulty sleeping. She also reports she has not been using her CPAP while in the hospital, and declines supplemental oxygen. Patient has history of a broken bone in her right lower extremity (2 years ago), which was reviewed at [facility]; elected not to do surgery. Patient reports that she did okay with PT yesterday, and was able to take a few steps, but was not able to ambulate in the hallway. Ambulating on her right ankle was fairly painful. ROS: Patient endorses right ankle pain, bilateral knee pain, and occasional numbness and tingling down the right leg. Patient denies fever, chills, dizziness/lightheadedness, headache, chest pain, SOB, cough, abdominal pain, or N/V/D. Review of Systems Review of Systems: See HPI above Physical Exam Physical Exam: General: No acute distress; anxious; non-toxic appearing; frail appearing; cooperative; SpO2 96% on RA HEENT: normocephalic, atraumatic; no scleral icterus; PERRLA; vision and hearing intact Neck: supple; no lymphadenopathy; trachea midline Skin: warm, dry without signs of tenting; no cyanosis; no rashes, bruising, lesions, or erythema noted CV: chest wall NTP; RRR; S1/S2 normal; no murmurs/rubs/gallops; pulses intact and symmetric at radial, DP, and PT Lungs: no acute respiratory distress; symmetrical chest wall expansion; clear breath sounds across all lung harris w/o adventitious sounds; no wheezing ABD: Soft, NTP; BS present; no rebound/guarding; no distention MSK: no tics or fasciculations; nonpitting edema/lymphedema noted in the lower extremities bilaterally, nonerythematous; bruising noted on the knees bilaterally; knees are TTP, and active ROM elicits some pain; patient demonstrates ability to plantarflex/dorsiflex bilaterally, but exhibits decreased strength in the right ankle when compared to the left; right ankle is mildly TTP when palpating just above the ankle bilaterally Neuro: A&Ox3; normal mood and affect; fluent speech; no focal deficits appreciated; patient reports sensation is intact and symmetric in the lower EXTR bilaterally assessed via light touch Results & Data Results & Data Vital Signs (Past 12 Hours) Vital Signs Temp Pulse Resp BP Pulse Ox O2 Del Method 12/31/24 08:30 Room Air 12/31/24 07:09 36.6 C 76 16 146/76 H 97 Room Air PG Care Time/CCT Total # of Minutes Spent Total Time Spent with Patient: Total time spent is greater than 50% in coordination of care (as documented) at patient's floor/unit and/or counseling patient: Coding [place] [address] SUB INP/OBS CARE 3/50MIN Patient Type Established Medical Decision Making High Complexity Diagnoses Fall W19.XXXA Encounter type: initial encounter Closed fracture of right distal fibula S82.831A Leukocytosis D72.829 Leukocytosis type: unspecified Acute knee pain M25.561; M25.562 Laterality: bilateral Venous insufficiency I87.2 Ambulatory dysfunction R26.2 (1) Fall Encounter type: initial encounter Qualified Code(s): W19.XXXA - Unspecified fall, initial encounter (3) Leukocytosis Leukocytosis type: unspecified Qualified Code(s): D72.829 - Elevated white blood cell count, unspecified (4) Acute knee pain Laterality: bilateral Qualified Code(s): M25.561 - Pain in right knee; M25.562 - Pain in left knee"
--- NOTE | 2024-12-31 14:19 | Orthopedic Consultation ---
Date of Service December 31, 2024 Assessment & Plan (1) Closed fracture of right distal fibula: * Case/imaging reviewed and discussed with Dr Valdes * Recommend closed management of right fibula fracture * May WBAT in cam boot as tolerated * Patient voiced concerns over fit and comfort of cam boot given her neuropathy and lymphedema. Discussed that it is important in order to provide stability of the ankle, but by no means that she have to wear it if if it is more uncomfortable. If this is the case would recommend limited weightbearing on the ankle * Disposition: Rehab * Daily treatment: Physical Therapy/ Occupational Therapy per protocol * Weight bearing status: WBAT in cam boot * Pain control * Remainder care per primary team * Office follow-up 4 weeks repeat x-ray History of Present Illness Reason for Consultation: . Right ankle pain Requesting Physician: . Attending Physician: Jitendra Hodges MD .Patient is a 89y/o female with right ankle pain. PMH including chronic venous insufficiency, CLL in remission, mitral regurgitation, aortic valve sclerosis. Well-known to orthopedic team with past shoulder surgery by Dr. Cuba, and injections to the knees most recently as November of this year. Presents to hospital with bilateral knee pain and right elbow pain after a fall. Per report patient was standing up from commode when she lost balance and fell forward landing on her knees and possibly twisting her ankle underneath her.. Current workup including x-ray bilateral knee demonstrate no acute fracture, x-ray right ankle demonstrating distal fibula fracture as well as chronic degenerative changes and deformity. Orthopedics consulted for management recommendations. At time of exam patient sitting comfortably in bed, no acute distress. Endorses moderate pain of the right ankle at rest that increases with attempted weightbearing. States it is difficult for her to walk. Currently uses a walker for all ambulation. Baseline neuropathy, lymphedema. Allergies Allergy/AdvReac Type Severity Reaction Status Date / Time mold Allergy Intermediate Congestion Verified 12/26/24 09:46 adhesive Allergy Mild Rash Verified 12/26/24 09:46 dexamethasone Allergy Mild Swelling Verified 12/26/24 09:46 prednisone Allergy Mild Swelling Verified 12/26/24 09:46 guaifenesin [From Mucinex] Allergy Unknown Unknown Verified 12/26/24 09:46 NSAIDS (Non-Steroidal AdvReac Intermediate Breakthrough Verified 12/26/24 09:46 Anti-Inflamma bleeding, anemia, "burning off the abdomen" calcitriol AdvReac Mild Headache Verified 12/26/24 09:46 celecoxib [From Celebrex] AdvReac Mild decreased Verified 12/26/24 09:46 urine flow duloxetine AdvReac Mild "Over Verified 12/26/24 09:46 eating" pantoprazole AdvReac Mild Digestive Verified 12/26/24 09:46 issues pregabalin [From Lyrica] AdvReac Mild Confusion Verified 12/26/24 09:46 diclofenac AdvReac Unknown Unknown Verified 12/26/24 09:46 Home Medications Medication Instructions Recorded Confirmed Type acetaminophen 650 mg 1,300 mg PO BID 02/06/19 12/26/24 History tablet,extended release cholecalciferol (vitamin D3) 50 2,000 units PO QAM 02/06/19 12/26/24 History mcg (2,000 unit) tablet simethicone 180 mg capsule 180 mg PO BID PRN gas relief 08/03/22 12/26/24 History (Anti-Gas Ultra Strength) sodium chloride 0.65 % nasal spray 1 spray intranasal ONCE PRN 08/03/22 12/26/24 History aerosol (Saline Nasal) Congestion lidocaine HCl 4 % topical cream 1 applic topical BID PRN pain 09/25/22 12/26/24 History (Aspercreme (lidocaine HCl)) multivitamin 1 tab PO QAM 09/25/22 12/26/24 History glucosamine 500 mg-chondroitin 3 cap PO QAM 02/27/23 12/26/24 History 116.7 mg-herbal no.270 133.3 mg capsule omega-3 fatty acids 1,250 mg 2,500 mg PO QAM 02/27/23 12/26/24 History capsule cyanocobalamin (vitamin B-12) 1,000 mcg PO Q2D 08/22/23 12/26/24 History 1,000 mcg tablet (Vitamin B-12) methylcellulose (with sugar) oral 1 tbsp PO HS 08/22/23 12/26/24 History powder (Citrucel (sucrose) oral powder) olopatadine 0.7 % eye drops 1 drp ophthalmic (eye) QAM PRN 08/22/23 12/26/24 History (Pataday Once Daily Relief) dry, itchy eyes turmeric 125 mg-young root 6 1 tab PO TID 08/22/23 12/26/24 History mg-black pepper 50 mcg chewable tablet methylcellulose (laxative) 500 mg 500 mg PO BID 09/11/23 12/26/24 History tablet (Citrucel) polyethylene glycol 3350 17 17 g PO DAILY 01/08/24 12/26/24 History gram/dose oral powder compress.stocking,knee,reg,med #2 ea 06/13/24 10/23/24 Rx hydrochlorothiazide 25 mg tablet 25 mg PO QAM #90 tabs 06/24/24 12/26/24 Rx urea 25 %-allantoin-vitamin E 1 applic topical DAILY 08/05/24 12/26/24 History topical cream (Flexitol) amoxicillin 500 mg capsule 2,000 mg (4 x 500 mg) PO ONCE #4 09/01/24 12/26/24 Rx caps Grab Bars #2 ea 09/05/24 10/23/24 Rx biotin 10 mg tablet 300 mg PO DAILY 12/26/24 12/26/24 History Past Med/Surg History Problem List (Updated 12/31/24 @ 14:17 by Kale Devine PA-C) Closed fracture of right distal fibula Leukocytosis (Acute) Ambulatory dysfunction (Acute) Acute knee pain (Acute) Fall (Acute) Nocturnal hypoxemia Venous insufficiency Incontinence overflow, urine Scar of nose Chronic lymphocytic leukemia Follows with Dr. Jonathon Alvarenga at this time per patient Status post reverse total replacement of right shoulder (~11/2023) Chronic pain Aortic valve sclerosis Mitral regurgitation Worsening dysgraphia Chronic low back pain Medical History Rotator cuff arthropathy of right shoulder Cervical radiculopathy Cervical spinal stenosis Urinary incontinence Deviated nasal septum Statin intolerance IBS (irritable bowel syndrome) LPRD (laryngopharyngeal reflux disease) Osteoarthritis, generalized Secondary hyperparathyroidism Rotator cuff arthropathy of both shoulders Tremor Gait disorder Anxiety Lymphedema Bilateral tinnitus Hammer toes of both feet Bilateral sensorineural hearing loss Fibromyalgia Hypercholesterolemia Obstructive sleep apnea Osteoporosis Spinal stenosis Cyst of right kidney Hypertension Peripheral neuropathy Premature ventricular contractions Scoliosis Atrial flutter Surgical History Hx of left cataract extraction Status post reverse total replacement of left shoulder Hx of right cataract extraction H/O esophagogastroduodenoscopy H/O colonoscopy S/P cholecystectomy S/P tonsillectomy and adenoidectomy S/P ovarian cystectomy S/P dilation and curettage Family History Sister Breast cancer Father Congestive heart failure Mother Coronary heart disease Hypertension Family/Other Cancer Uncle Kidney malignancy Brother Prostate cancer Grandfather Prostate cancer Other Hx of breast cancer No family history of adverse response to anesthesia Denies family history of Colon cancer Ovarian cancer Myocardial infarction Colorectal cancer Social History Smoking Status: Never smoker Second Hand Exposure: No; Do You Dip or Chew Tobacco: No; Tobacco Cessation Education Requested by Patient: No Hx Alcohol Use: No Hx Substance Use: No Preferred Language: Kazakh Communication Ability: Effective Visual Impairment: Limited Hearing Ability: Hard of Hearing Fringe Weaver Required: No Beliefs That Will Affect Care: None marital status: / Current Living Situation: Alone Current Living Situation Comment: apartment with senior apartments current occupational status: retired How many Children do You have: 4 How many Children do You have Comment: 4 boys Other Information That Helps Us Care for You: No Feels Safe at Home: Yes Safety Concerns: Feels Safe At This Time Childhood Exposure to Second-Hand Smoke: No Diet: regular Diet Comment: dash diet caffeine: No during the past year weight has: remained stable Dental Care, Regularly: Yes Physical Activity Frequency: Does not Exercise Seatbelt Use: always Sunscreen Use: Yes Do you think of yourself as: straight/heterosexual Assistive Devices: Bedside Commode and Walker Review of Systems All systems reviewed & are unremarkable except as noted in HPI & below. Physical Exam . * General: Alert and oriented, no acute distress * Constitutional: well-developed, well-nourished. * Respiratory: Normal respiratory effort, no distress * Gastrointestinal: No tenderness to palpation, no rigidity or guarding. * Skin: No rash or lesion. * Neurologic: Grossly normal * Musculoskeletal: Diffuse soft tissue edema of the right lower leg. Otherwise no obvious deformity or overlying skin changes to right lower extremity. TTP distal fibula, lesser so to the medial malleolus diffuse nonspecific mild tenderness throughout the lower leg. AROM ankle dorsi/plantarflexion intact, pain to the lateral ankle. Sensation intact plantar/dorsal foot. Brisk capillary refill. Results & Data Results & Data Laboratory Results . Diagnostic Findings . Ankle X-Ray 12/31/24 12:42 XR ankle RT min 3V routine CLINICAL HISTORY: Fall; right ankle pain COMPARISON: None FINDINGS: There is osteopenia. There is an acute minimally displaced fracture at the distal fibula. There is a possible acute nondisplaced fracture at the medial malleolus. There is minimal lateral subluxation of the tibiotalar joint. There is severe joint space narrowing with flattening of the dome of the talus. There is pes planus. There is nonspecific irregularity at the anterior plantar aspect of the calcaneus, nondisplaced fracture of uncertain chronicity. IMPRESSION: 1. Minimally displaced acute fracture distal fibula. 2. Possible nondisplaced fracture medial malleolus. 3. Irregularity at the anterior plantar calcaneus could be chronic or could represent acute nondisplaced fracture. 4. Minimal lateral subluxation at the tibiotalar joint. ACT 112: Negative or not required by law. Electronically signed by: Jag Daugherty M.D. 12/31/2024 1:25 PM PG Care Time/CCT Total # of Minutes Spent Total Time Spent with Patient: Total time spent is greater than 50% in coordination of care (as documented) at patient's floor/unit and/or counseling patient: Coding [place] [address] IN/OBS CONSULT LVL 2,35M Patient Type Established Exam Problem Focused Medical Decision Making Straight Forward Diagnoses Closed fracture of right distal fibula S82.831A
[2024-12-31 21:45] VITALS: TEMP 98.1
[2025-01-01 07:19] VITALS: RESP 16; O2SAT 98
--- NOTE | 2025-01-01 08:29 | Discharge Summary ---
Discharge Summary Date of Service January 01, 2025 Principal Dx & Hospital Course #1 = Principal Diagnosis (1) Fall: (2) Closed fracture of right distal fibula: (3) Leukocytosis: (4) Acute knee pain: (5) Venous insufficiency: (6) Ambulatory dysfunction: Plan Ms. Fabian is an 89 y.o. F with PMH of chronic venous insufficiency, chronic lymphocytic leukemia in remission, mitral regurgitation, aortic valve sclerosis, and chronic low back pain who is admitted due to fall. Imaging of the knees did not reveal acute fractures on arrival, but she did have a minimally displaced right fibular fracture on ankle x-ray. Nonoperative. Medically stable for discharge. Transferred to [facility] for acute rehab on 01/01. Day of discharge 01/01: Patient reports she is doing well this morning. She still reports that her right ankle is "aching" this morning but is not painful. She expresses some concerns with wearing the cam boot, due to her neuropathy and lymphedema in her lower extremities bilaterally. Last BM was yesterday morning, and she feels like she may have another one today. Overall though, she feels around the same as she did yesterday. She reports she feels ready to go to rehab today. ROS: Patient endorses right ankle pain, bilateral knee pain, lower back pain, and shoulder pain bilaterally. Patient denies fever, chills, night sweats, chest pain, SOB, cough, pleuritic CP, abdominal pain, N/V/D, or changes in urinary/bowel habits. #Fall | ambulatory dysfunction Given NS maintenance fluids in ED Bilateral knee X-rays unremarkable Unable to ambulate PT/OT evaluations appreciated PT recommending acute rehab Tylenol 650mg QID scheduled for pain Tramadol 25mg PO for breakthrough pain + 4% Lidocaine cream, ice to affected areas as needed Added on lidocaine patch on 12/29 PRN Accepted by [facility] for acute rehab Will plan to transfer patient over on 01/01 #Closed fracture of right distal fibula Right ankle x-ray revealed a minimally displaced acute fracture of the distal fibula, as well as a possible nondisplaced fracture of the medial malleolus Orthopedics consult appreciated Non-operative; WBAT Calf high ELIJAH stockings for swelling Plan for orthopedic follow-up in 4 weeks Orthotics consult appreciated for walking boot Pain control (as above) Vit D level ordered for the morning of 01/01 However, per nursing staff, they are unable to get lab work this morning after several attempts Rather than delaying transfer, will plan to have this done outpatient #Leukocytosis | H/o CLL WBC 34.62 on arrival; WBC count 14.85 at discharge Previous WBC ranging 12-15 Chest XR - no definite pulmonary pathology; constipation, suspected ileus UA clean (trace blood, trace LE, SG 1.019) Clinically, patient denies infectious symptoms UA clean (trace blood, trace LE, SG 1.019) ESR and procalcitonin WNL CRP mildly elevated at 1.58 on arrival, likely reactive to fall Peripheral smear ordered: Lymphocytosis consistent with CLL history Neutrophilia suspected to be reactive in nature #Constipation Milk of magnesia PRN #Chronic venous insufficiency Significant bilateral lower extremity edema, patient takes HCTZ 25mg at home to decrease swelling, continue #Mitral regurgitation EKG NS Echocardiogram on 12/27/2024 revealed no significant changes from prior study; EF 65-to 70% without regional wall motion abnormalities Dispo: Transfer to [facility] for acute rehab on 01/01 Updated patient's son (Km) over the phone on the evening of 12/31 Notes For Next Care Provider Patient was hospitalized at [facility] from 12/26 to 01/01 after sustaining a fall off of her commode at home. Imaging did not reveal any fractures in her knees bilaterally, but did reveal a minimally displaced right distal fibular fracture. This was reviewed by orthopedics team, and is nonoperative. Patiently placed in a CAM boot. PT recommending acute rehab. Patient to be transferred to [facility] on 01/01. Vitamin D level was ordered for the morning of 01/01 prior to discharge; however, this was unable to be drawn after several attempts. Please plan to follow-up with a vitamin D 25 Hydroxy level outpatient prior to transitional care appointment. Admission HPI Per Admitting Provider Ms. Fabian is an 89 y.o. F with past medical history of chronic venous insufficiency, chronic lymphocytic leukemia in remission, mitral regurgitation, aortic valve sclerosis, and chronic low back pain who is admitted due to fall. Reports she sat on her geriatric commode, however the wheels on the commode malfunctioned or got stuck in her shoes, which caused her to fall forward on her knees. Denies hitting her head. She lives independently in apartment complex but lives alone. She reports she was on the ground for 4 hours because she wasn't able to pull herself up. Eventually, neighbor heard her and was able to call 911. Reports bilateral knee pain but denies pain elsewhere. Denies dizziness, chest pain, SOB prior to fall. Denies history of previous falls. She is not on blood thinner. Denies cardiac history. Denies cough, fevers, chest pain, sore throat, chills today. Denies recent sick contacts. Reports regular bowel movements. Denies urinary symptoms. No other acute concerns. Admission Exam Per Admitting Provider Constitutional: WD/WN, vitals as above Respiratory: normal respiratory effort Auscultation: + wheezes (bilaterally, mild) Cardiovascular: Rate/Rhythm: regular rate Heart Sounds: + murmur (systolic crescendo-decrescendo murmur) Gastrointestinal (Abdomen): Inspection/Auscultation: normal bowel sounds Percussion/Palpation: + abdomen tender (mild, diffuse) Skin: bruises along dorsal L and R upper extremities Psychiatric: A+Ox3, euthymic affect Lymphatic: bilateral lower extremity edema up till above knees Discharge Exam General: No acute distress; anxious; non-toxic appearing; frail appearing; cooperative; SpO2 98% on RA HEENT: normocephalic, atraumatic; no scleral icterus; PERRLA; vision and hearing intact Neck: supple; trachea midline Skin: warm, dry without signs of tenting; no cyanosis; no rashes, bruising, lesions, or erythema noted CV: chest wall NTP; RRR; S1/S2 normal; no murmurs/rubs/gallops; pulses intact and symmetric at radial, DP, and PT Lungs: no acute respiratory distress; symmetrical chest wall expansion; clear breath sounds across all lung harris w/o adventitious sounds; no wheezing ABD: Soft, NTP; BS present; no rebound/guarding; no distention MSK: no tics or fasciculations; non-pitting edema/lymphedema noted in the lower extremities bilaterally, nonerythematous; bruising noted on the knees bilaterally; knees are TTP, and active ROM elicits some pain; patient demonstrates ability to plantarflex/dorsiflex in the left ankle without difficulty; right lower extremity is currently in a CAM boot Neuro: A&Ox3; normal mood and affect; fluent speech; no focal deficits appreciated; patient reports that sensation is intact and symmetric in the toes bilaterally assessed via light touch Discharge Plan Discharge Items Patient Disposition: Transfer Retirement Fac Reason For Visit: FALL Discharge Diagnosis: Fall, ambulatory dysfunction Condition on Discharge: Fair Activity: As commented below Activity Comment: Gradually increase activity as tolerated, per PT r ecommendations Weightbearing Comment: WBAT in CAM boot, per ortho Non-emergency contact: Primary Care Provider Call non-emergency contact if: you have any medication questions, your symptoms worsen, your pain is not controlled, your pain is worsening and you have a fever Follow-up/Referrals: Erick Valdes MD [Physician] - Earle Thompson DO [Primary Care Provider] - Diet: Regular Addtl Attending Provider Instructions: You were hospitalized at [facility] from 12/26 - 01/01 after sustaining a fall at home while on the commode. On arrival, imaging was taken of your knees, which did not reveal any acute fractures. However, you reported significant pain with walking, and a right ankle x-ray was obtained on 12/30 that revealed a mildly displaced, closed fracture of the right distal fibula. Orthopedics team recommends nonoperative/conservative treatment. Weightbearing as tolerated in the cam boot. If you are unable to tolerate the cam boot, would recommend limited weightbearing on the right side. Our physical therapy team worked with you in the hospital, and recommended acute rehab for additional strength training conditioning. Given your vitals have been stable over the course of your hospital stay, we feel that you are safe to be transferred to [facility] for acute rehab. If you develop any new or worsening symptoms, such as inability to walk, intractable lower extremity pain, fever, chills, chest pain, or trouble breathi ng, please return to the Emergency Department immediately. It was a pleasure taking care of you. Please reach out with any questions or concerns. 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 Instructions: Right ankle fracture * Nonoperative management has been recommended for your ankle fracture * Recommend activity as tolerated while wearing the cam boot * Use walker as needed for assistance * Please call office for follow-up appointment in approximately 1 month for repeat x-rays Pending Studies at Discharge: No Stand-Alone Forms: My [facility] Skilled Items Patient informed of condition?: Yes DNR: No Discharge Level of Care: Acute rehab Communicable Disease: No Discharge Prognosis: Stable Lines: None Urinary Catheter: No Medications and DC Order Prescriptions: Continued (DME) compress.stocking,knee,reg,med Misc See Rx Instructions .Route Qty: 2 0RF Rx Instructions: Bilateral foot and calf velcro compression wraps hydrochlorothiazide 25 mg tablet 25 mg PO QAM Qty: 90 3RF amoxicillin 500 mg capsule 2,000 mg PO ONCE Qty: 4 3RF Rx Instructions: take 4 tabs 1 hour prior to dental appointment omega-3 fatty acids 1,250 mg capsule 2,500 mg PO QAM [id number]#[id number] 500 mg-116.7 mg-133.3 mg capsule 3 cap PO QAM Saline Nasal 0.65 % aerosol,spray 1 spray intranasal ONCE PRN (Reason: Congestion) simethicone [Anti-Gas Ultra Strength] 180 mg capsule 180 mg PO BID PRN (Reason: gas relief) acetaminophen 650 mg tablet extended release 1,300 mg PO BID cholecalciferol (vitamin D3) 2,000 unit tablet 2,000 units PO QAM (DME) Grab Bars See Rx Instructions .Route .MEDSUPPLY Qty: 2 0RF Rx Instructions: Grab bars x2 installed in shower for prevention of falls Flexitol 25 % cream 1 applic topical DAILY polyethylene glycol 3350 17 gram/dose powder 17 g PO DAILY multivitamin Tablet 1 tab PO QAM lidocaine HCl [Aspercreme (lidocaine HCl)] 4 % Cream 1 applic topical BID PRN (Reason: pain) Citrucel 500 mg Tablet 500 mg PO BID Patient Comments: morning and lunch cyanocobalamin (vitamin B-12) [Vitamin B-12] 1,000 mcg Tablet 1,000 mcg PO Q2D Patient Comments: takes in the am Citrucel (sucrose) Powder 1 tbsp PO HS jlyaexjz-tnjxah-ogszq pepper 125 mg-6 mg- 50 mcg Tablet,Chewable 1 tab PO TID Rx Instructions: w/meals Pataday Once Daily Relief 0.7 % drops 1 drp ophthalmic (eye) QAM PRN (Reason: dry, itchy eyes) biotin 10 mg Tablet 300 mg PO DAILY Discharge Orders: Discharge Order (Routine); Ordered 01/01/25 Ordered By: Moses Dempsey/Other Patient Handouts: Preventing Falls in the Home, ED Ankle Fracture, Distal Fibula Admission Data Admit Date/Time: 12/27/24 09:31 Attending Provider: Jitendra Hodges Admit Provider: Zuleyka Burrows Primary Care Provider: Earle Thompson Other Providers: Boom Lion; [place] [facility]; [facility]; Erick Valdes Other Interventions: Discharge Summary Assessment (RN) Last Done: 01/01/25 10:35 Hospital Stay Data Consultations 12/26/24 10:39 ED Decision to Admit Stat 12/31/24 13:41 Consult Orthopedic Surgery Routine Pending Results Patient Have Any Pending Studies at Discharge: No Discharge Instructions Given to Patient (Per Discharging Provider) You were hospitalized at [facility] from 12/26 - 01/01 after sustaining a fall at home while on the commode. On arrival, imaging was taken of your knees, which did not reveal any acute fractures. However, you reported significant pain with walking, and a right ankle x-ray was obtained on 12/30 that revealed a mildly displaced, closed fracture of the right distal fibula. Orthopedics team recommends nonoperative/conservative treatment. Weightbearing as tolerated in the cam boot. If you are unable to tolerate the cam boot, would recommend limited weightbearing on the right side. Our physical therapy team worked with you in the hospital, and recommended acute rehab for additional strength training conditioning. Given your vitals have been stable over the course of your hospital stay, we feel that you are safe to be transferred to [facility] for acute rehab. If you develop any new or worsening symptoms, such as inability to walk, intractable lower extremity pain, fever, chills, chest pain, or trouble breathing, please return to the Emergency Department immediately. It was a pleasure taking care of you. Please reach out with any questions or concerns. Sincerely, The hospital medicine team at [facility] Supervising Physician Co-Signing Physician Notes Attending Attestation and Discharge Note: Chart reviewed, discharge care plan d/w JAG Diaz. I agree w/ the phan components of his discharge documentation. Of note - I did not perform a bedside visit or physical exam on day of discharge. 89yo female with history of venous insufficiency, chronic low back pain, CLL. Presented after suffering a fall at home. She underwent imaging of various locations including the right ankle. x-rays showed a minimally displaced fracture of the distal fibula, as well as a possible nondisplaced fracture of the right medial malleolus. Seen by orthopedics, and nonoperative Rx advised. She can WBAT in a CAM Walker boot. She will need f/u with [facility] orthopedics post-d/c to check the status of the right ankle fracture. While at rehab please plan to check a 25-OH vitamin D level. Jitendra Hodges MD Total Time Total Time Spent Total Time Spent (In Minutes): 20 C[place] [address] IN/OBS DISCH 30 MIN/LESS Patient Type Established Medical Decision Making Moderate Complexity Diagnoses Fall W19.XXXA Encounter type: initial encounter Closed fracture of right distal fibula S82.831A Leukocytosis D72.829 Leukocytosis type: unspecified Acute knee pain M25.561; M25.562 Laterality: bilateral Venous insufficiency I87.2 Ambulatory dysfunction R26.2
[2025-01-01 10:41] VITALS: BP 121/66; PULSE 70
== END 2025-01-01 11:09 | DRG 563 ==
LOC: ED 08:34 → 3N 08:34 → SUATTDRO 12-27 09:31